=== PATIENT | female | born 1950 | race Caucasian/White ===

== ENCOUNTER 2024-09-20 10:55 | Outpatient (OUT) | payer OTHER, SELFPAY ==
--- OUTSIDE RECORDS SUMMARY | 2024-09-05 18:48 | XMS_ITS | Encounter Summary ---
Author Organization [facility] Address [address] [place] [address] Care Team Providers Care N[employer] Weaver Name Role Phone Salas Massey MD Primary Care Provider [phone] Reason for Referral * Sleep (Routine) - Authorized Specialty Diagnoses / Procedures Referred By Mariely cortes Referred To Contact Sleep Disorder Diagnoses Hypersomnia Procedures Polysomnography [id number] Marcy Olivo MD [address] [place] [address] [facility] [address] [place] [address] Referral ID Status Reason Start Date Expiration Date V isits Requested Visits Authorized [id number] Authorized 07/04/2024 07/04/2025 1 1 Reason for Visit * Sleep (Routine) - Authorized Specialty Diagnoses / Procedures Referred By Mariely cortes Referred To Contact Sleep Disorder Diagnoses Hypersomnia Procedures Polysomnography [id number] Marcy Olivo MD [address] [place] [address] [facility] [address] [place] [address] Referral ID Status Reason Start Date Expiration Date V isits Requested Visits Authorized [id number] Authorized 07/04/2024 07/04/2025 1 1 Encounter Details Date Type Department Care Team (Latest Contact Info) Description 09/05/2024 6:48 PM EDT - 09/05/2024 11:59 PM EDT Hospital Encounter [facility] [address] [place] [address] Hypersomnia Discharge Disposition: Home or Self Care () Social History Tobacco Use Types Packs/Day Years Used Date Smoking Tobacco: Never Smokeless Tobacco: Never Alcohol Use Standard Drinks/Week Comments Never 0 (1 standard drink = 0.6 oz pur e alcohol) [facility] Utilities Answer Date Recorded In the past 12 months has e [employer], gas, oil, or water reQwip threatened to shut off services in your home? No 06/30/2024 Humiliation, Afraid, Rape, and Kick questionnair e Answer Date Recorded Within the last year, have y ou been afraid of your partner or ex-partner? No 07/22/2024 Within the last year, have y ou been humiliated or emotionally abused in other ways by your partner or ex-partner? No Within the last year, have y ou been kicked, hit, slapped, or otherwise physically hurt by your partner or ex-partner? No 07/22/2024 Within the last year, have y ou been raped or forced to have any kind of sexual activity by your partner or ex-partner? No 07/22/2024 Overall Financial Resource Strain (CARDIA) Answe r Date Recorded How hard is it for you to pa y for the very basics like food, housing, medical care, and heating? Not hard at all 06/30/2024 PHQ-2 Answer Date Recorded Patient Health Questionnaire-2 Score 2 07/28/2024 Transportation Answer Date Recorded In the past 12 months, has l ack of transportation kept you from medical appointments or from getting medications? No 06/30/2024 Lack of Transportation (Non-Medical)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 06/30/2024 Housing Stability Vital Sign Answer Jovan e Recorded In the last 12 months, was t here a time when you were not able to pay the mortgage or rent on time? No 06/30/2024 Number of Times Moved in the Last Year Not on fi le 06/30/2024 At any time in the past 12 m [facility], were you homeless or living in a long term (including now)? No 06/30/2024 Hunger Vital Sign Answer Date Recorded Within the past 12 months, y ou worried that your food would run out before you got the money to buy more. Never true 07/01/19 25 Ran Out of Food in the Last Year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 06/30/2024 Sex and Gender Information Value Date Recorded Sex Assigned at Female 06/29/2024 6:39 PM EDT Gender Identity Female 06/29/2024 6:39 PM EDT Sexual Orientation Heterosexual or Straight 06/11 6:39 PM EDT documented as of this encounter Last Filed Vital Signs Vital Sign Reading Time Taken Comments Blood Pressure 134/67 09/05/2024 11:40 PM EDT Pulse 106 09/05/2024 11:40 PM EDT Temperature 36.8 C (98.3 F) 09/05/2024 11:40 PM EDT Respiratory Rate 18 09/05/2024 11:40 PM EDT Oxygen Saturation 100% 09/05/2024 11:40 PM EDT Inhaled Oxygen Concentration - - Weight 102 kg (225 lb) 09/05/2024 11:40 PM EDT Height 162.6 cm (5' 4 ) 09/05/2024 11:40 PM EDT Body Mass Index 38.62 09/05/2024 11:40 PM EDT documented in this encounter Medications at Time of Discharge Medication Sig Dispensed Refills Start Date End Date ALPRAZolam (Xanax) 0.25 mg tablet Take 0.25 mg by mouth if needed in the morning and at bedtime for anxiety. amitriptyline (Elavil) 50 mg tablet Take 50 mg by mouth at bedtime. ammonium lactate (Lac-Hydrin) 12 % lotionIndications:Lymphe shaq,Xerosis cutis Apply topically two times daily. 396 g 3 08/08/2024 bumetanide (Bumex) 1 mg tabletIndications:Stage 3b chronic kidney disease (CMS/HCC) Take 1 tablet (1 mg) by mouth two times daily. 60 tablet 11 07/28/2024 07/28/2025 cholecalciferol (Vitamin D-3) 125 MCG (5000 UT) capsule Take 1 capsule by mouth in the morning. cyanocobalamin, vitamin B-12, 1,000 mcg capsule Take 1 capsule by mouth in the morning. 06/24/2024 diphenhydramine HCl (UNISOM SLEEPMELTS ORAL) Take 1 tablet by mouth if needed each day. escitalopram (Lexapro) 10 mg tablet Take 10 mg by mouth in the morning. gabapentin (Neurontin) 300 mg capsule Take 300 mg by mouth twice a day. Patient takes 300 mg in the morning and 600 mg at night levothyroxine (Synthroid, Levoxyl) 100 mcg tablet Take 100 mcg by mouth before breakfast. 05/23/2024 metoprolol succinate XL (Toprol-XL) 25 mg 24 hr tabletIndications:Hypert rophic cardiomyopathy (CMS/HCC) Take 3 tablets (75 mg) by mouth in the morning. Do not crush or chew. 90 tablet 07/03/2024 potassium chloride CR (Klor-Con) 10 mEq ER tabletIndications:Stage 3b chronic kidney disease (CMS/HCC) Take 1 tablet (10 mEq) by mouth in the morning. 30 tablet 3 07/28/2024 rosuvastatin (Crestor) 10 mg tablet Take 10 mg by mouth at bedtime. spironolactone (Aldactone) 25 mg tabletIndications:Stage 3b chronic kidney disease (CMS/HCC) Take 1 tablet (25 mg) by mouth in the morning. 30 tablet 11 07/28/2024 07/28/2025 tamsulosin (Flomax) 0.4 mg 24 hr capsuleIndications:Urina ry retention Take 1 capsule (0.4 mg) by mouth in the morning. 10 capsule 08/25/2024 traMADol (Ultram) 50 mg tablet Take 50 mg by mouth. documented as of this encounter Progress Notes * MARGARETTEISIDRO Jaeger - 09/05/2024 7:30 PM EDT Functional Outcomes of Sleep Questionnaire Some people have difficulty performing everyday activities when they feel tired or sleepy. The purpose of this questionnaire is to find out if you generally have difficulty carrying out certain activities because you are too sleepy or tired. In this questionnaire, when the words ???sleepy?? or ???tired?? are used, it means the feeling that you can't keep your eyes open, your head is droopy, that you want to ???nod off?? , or that you feel the urge to take a nap. These words do not refer to the tired or fatigued feeling you may have after you have exercised. 1) Do you have difficulty concentrating on the things you do because you are sleepy or tired? 3. Yes, a little difficulty 2) Do you generally have difficulty remembering things, because you are sleepy or tired? 3. Yes, a little difficulty 3) Do you have difficulty operating a motor vehicle for SHORT distances (less than 100 miles) because you become sleepy or tired? 4. No difficulties 4) Do you have difficulty operating a motor vehicle for LONG distances (greater than 100 miles) because you become sleepy or tired? 4. No difficulties 5) Do you have difficulty visiting with your family or friends in THEIR homes because you are sleepy or tired? 4. No difficulties 6) Has your relationship with your family, friends, or work colleagues been affected because you are sleepy or tired? 4. No 7) Do you have difficulty watching a movie or videotape because you become sleepy or tired? 3. Yes, a little difficulty 8) Do you have difficulty being as active as you want to be in the EVENING because you are too sleepy or tired? 2. Yes, moderate difficulty 9) Do you have difficulty being as active as you want to be in the MORNING because you are too sleepy or tired? 3. Yes, a little difficulty 10) Has your desire for intimacy or sex been affected because you are sleepy or tired? 3. Yes, a little TOTAL 33 FOSQ-10?? 2004, Eva Ortiz FOSQ-10 - [place] [email or web address]-[email or web address] documented in this encounter Plan of Treatment Upcoming Encounters Date Type Department Care Team (Late st Contact Info) Description 10/06/2024 2:30 PM EDT Follow-Up [facility] [address] [place] [id number] Zuleima Duarte MD [address] [address] [place] 01/10/2025 1:00 PM EDT [facility] [place] [address] [place] [phone] Shoaib Pierson MD [address] [facility] [place] [address] Scheduled Orders Name Type Priority Associated Diagnoses Orde r Schedule Polysomnography 101[facility] Sleep Center Routine Hypersomnia Once for 1 Occurrences starting 09/05/2024 until 09/05/2024 documented as of this encounter Visit Diagnoses Diagnosis Hypersomnia Hypersomnia, unspecified documented in this encounter Care Teams [employer] Weaver Relationship Specialty Start Date End Date Salas Massey MD [address] [facility] [address] [place] [address] PCP - General Internal Medicine 06/29/24 documented as of this encounter
--- OUTSIDE RECORDS SUMMARY | 2024-09-09 13:00 | XMS_ITS | Encounter Summary ---
Author Organization [facility] Address [address] [facility] [place] [address] Care Team Providers Care Intermediate Project Manager Name Role Phone Salas Massey MD Primary Care Provider Jignesh Dinh MD Unavailable [phone] Eliot Rider DO Unavailable [phone] Salas Massey MD Unavailable [phone] Marixa Sampson RN Unavailable Unavailable Encounter Details Date Type Department Care Team (Late st Contact Info) Description 09/09/2024 1:00 PM EDT Telemedicine [facility] [address] [facility] [address] [place] [address] Jignesh Dinh MD [address] [facility] [address] [place] [id number] MCI (mild cognitive impairment) with memory loss (Primary Dx) Social History Tobacco Use Types Packs/Day Years Used Date Smoking Tobacco: Former Cigarettes Q uit: 04/13/1998 Smokeless Tobacco: Never Comments:10-19 cigarettes/da y Alcohol Use Standard Drinks/Week Comments Not Currently 0 (1 standard drink = 0.6 oz pure alcohol) caffeine intake: 1-2 cans of pop weekly B1300 Health Literacy Answer Date Recor ded How often do you need to hav e someone help you when you read instructions, pamphlets, or other written material from your doctor or pharmacy? Sometimes 08/13/2024 Humiliation, Afraid, Rape, and Kick questionnair e Answer Date Recorded Within the last year, have y ou been afraid of your partner or ex-partner? Patient declined 08/13/2024 Within the last year, have y ou been humiliated or emotionally abused in other ways by your partner or ex-partner? Patient declined 08/13/2024 Within the last year, have y ou been kicked, hit, slapped, or otherwise physically hurt by your partner or ex-partner? Patient declined 08/13/2024 Within the last year, have y ou been raped or forced to have any kind of sexual activity by your partner or ex-partner? Patient declined 08/13/2024 Social Connection and Isolat ion Panel [NHANES] Answer Date Recorded In a typical week, how many times do you talk on the phone with family, friends, or neighbors? More than three times a week 08/13/2024 How often do you get togethe r with friends or relatives? Patient declined 08/13/2024 How often do you attend chur or jainism services? Patient declined 08/13/2024 Do you belong to any clubs o r organizations such as scientologist groups, unions, fraternal or athletic groups, or school groups? Patient declined 08/13/2024 How often do you attend meet ings of the clubs or organizations you belong to? Patient declined 08/13/2024 Are you , , di vorced, , never , or living with a partner? Patient declined 08/13/2024 AUDIT-C Answer Date Recorded Q1: How often do you have a drink containing alcohol? Never 08/13/2024 Q2: How many drinks containi ng alcohol do you have on a typical day when you are drinking? Patient does not drink Q3: How often do you have si x or more drinks on one occasion? Never 08/13/2024 Overall Financial Resource Strain (CARDIA) Answe r Date Recorded How hard is it for you to pa y for the very basics like food, housing, medical care, and heating? Patient declined 08/13/2024 PHQ-2 Answer Date Recorded Patient Health Questionnaire-2 Score 0 04/28/2023 [facility] - Occupational Stress Questionnaire Answer Date Recorded Do you feel stress - tense, restless, nervous, or anxious, or unable to sleep at night because your mind is troubled all the time - these days? To some extent 08/13/2024 Exercise Vital Sign Answer Date Recorde d On average, how many days pe r week do you engage in moderate to strenuous exercise (like a brisk walk)? 0 days 08/13/2024 On average, how many minutes do you engage in exercise at this level? 0 min 08/13/2024 Hunger Vital Sign Answer Date Recorded Within the past 12 months, y ou worried that your food would run out before you got the money to buy more. Never true 08/14/19 25 Within the past 12 months, t he food you bought just didn't last and you didn't have money to get more. Never true 08/13/2024 PRAPARE - Transportation Answer Date Re corded In the past 12 months, has l ack of transportation kept you from medical appointments or from getting medications? No 06/2024 In the past 12 months, has l ack of transportation kept you from meetings, work, or from getting things needed for daily living? No 08/13/2024 Housing Stability Vital Sign Answer Jovan e Recorded In the last 12 months, was t here a time when you were not able to pay the mortgage or rent on time? No 08/13/2024 In the past 12 months, how m any times have you moved where you were living? 0 08/13/2024 At any time in the past [address] [facility], were you homeless or living in a care home (including now)? 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, [place]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 documented as of this encounter Plan of Treatment Upcoming Encounters Date Type Department Care Team (Late st Contact Info) Description 09/21/2024 2:30 PM EDT Office Visit [facility] [address] [place] [phone] 10/24/2024 2:30 PM EDT Clinical Support [facility] [address] [place] [phone] Dov Gonzalez RN documented as of this encounter Visit Diagnoses Diagnosis MCI (mild cognitive impairment) with memory loss- Primary Mild cognitive impairment, so stated documented in this encounter Care Teams Intermediate Project Manager Relationship Specialty Start Date End Date Salas Massey MD [address] [place] [address] PCP - General Internal Medicine 10/20/22 Salas Massey MD [address] [place] [address] PCP - Devoted 04/13/24 Jignesh Dinh MD [address] [place] [address] Referring Physician Neurology 04/15/23 Eliot Rider DO [address] [place] [address] [facility] [place] [address] Referring Physician Orthopaedic Surgery 07/07/23 Marixa Sampson, RN Registered Nurse Family Medicine 06/23/24 documented as of this encounter
--- OUTSIDE RECORDS SUMMARY | 2024-09-19 14:30 | XMS_ITS | Encounter Summary ---
Author Organization [facility] Address [address] [place] [address] Care Team Providers Care Decision Support Analyst Name Role Phone Salas Massey MD Primary Care Provider [phone] Jignesh Dinh MD Unavailable Eliot Rider DO Unavailable [phone] Salas Massey MD Unavailable [phone] Marixa Sampson RN Unavailable Unavailable Reason for Visit * Social Care Notification (Routine) - Closed Specialty Diagnoses / Procedures Referred By Contac t Referred To Contact Diabetes Education / Behavioral Health Diagnoses Type 2 diabetes mellitus without complication, without long-term current use of insulin Procedures [facility] OFFICE/OUTPATIENT NEW HIGH MDM 60 MINUTES Kehinde Silvestre, CHILLER OPERATOR [address] [place] [address] Phone: tel: fax: Dov Gonzalez RN Referral ID Status Reason Start Date Expiration Date V isits Requested Visits Authorized [id number] Closed Specialty Services Required 08/08/2024 02/04/2025 10 10 Encounter Details Date Type Department Care Team (Latest Contact Info) Description 09/19/2024 2:30 PM EDT Clinical Support [facility] [address] [place] [address] Dov Gonzalez RN Type 2 diabetes mellitus without complication, without long-term current use of insulin (Primary Dx); Essential hypertension (CMS/HCC) Social History Tobacco Use Types Packs/Day Years [...] 08/13/2024 How often do you attend chur ch or jainism services? Patient declined 08/13/2024 Do you belong to any clubs o r organizations such as orthodoxy groups, unions, fraternal or athletic groups, or [...] Answer Date Recorded Patient Health Questionnaire-2 Score 3 09/14/2024 [facility] - [...] any time in the past 12 m [facility], were you homeless or living in a fpc (including now)? 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 Follow up visit HPI Follow up with Oksana for her Type 2 Diabetes education. Past History Past Medical History: Diagnosis Date Colon polyps Depression (CMS/HCC) Diabetes mellitus (CMS/HCC) Generalized anxiety disorder (CMS/HCC) 10/15/2022 GERD (gastroesophageal reflux disease) Hypercholesterolemia (CMS/HCC) Hypertension (CMS/HCC) Hypothyroidism (CMS/HCC) Insomnia MCI (mild cognitive impairment) with memory loss 12/03/2022 Morbid obesity (CMS/HCC) 10/15/2022 Neuromuscular disorder (CMS/HCC) Nonalcoholic fatty liver disease 10/15/2022 Obsessive-compulsive disorder (CMS/HCC) 01/09/2023 Obstructive hypertrophic cardiomyopathy (CMS/HCC) 01/12/2023 Obstructive sleep apnea syndrome 10/15/2022 Polyneuropathy associated with underlying disease (CMS/HCC) 07/27/2023 Prediabetes Primary osteoarthritis involving multiple joints Stage 3a chronic kidney disease (HCC) (CMS/HCC) 10/15/2022 Type 2 diabetes mellitus with diabetic neuropathy (CMS/HCC) 04/28/2023 Vitamin D deficiency 10/15/2022 Past Surgical History: Procedure Laterality Date CARPAL TUNNEL RELEASE Bilateral 2022 right (06/02/2022) & left (05/19/2022)- ANDREW COLONOSCOPY W/ POLYPECTOMY 2014 ESOPHAGRAM ESOPHAGUS 01/28/2023 FOOT NEUROMA SURGERY Right FOOT SURGERY Left foot reconstruction bone stim HYSTERECTOMY MICHAEL with USO-DUB, benign JOINT REPLACEMENT TOTAL KNEE ARTHROPLASTY Left 10/29/2015 revision TOTAL KNEE ARTHROPLASTY 06/26/2014 Dr. Eliot Brown TOTAL SHOULDER ARTHROPLASTY Left 12/03/2022 reverse TSA-JAStefania Current Outpatient Medications Medication Sig Dispense Refill ALPRAZolam (Xanax) 0.25 MG tablet Take 1 tablet (0.25 mg) by mouth 2 (two) times a day as needed for anxiety 60 tablet 2 amitriptyline (Elavil) 50 MG tablet TAKE 1 TABLET BY MOUTH AT BEDTIME 90 tablet 3 ammonium lactate (Amlactin) 12 % cream Apply 1 application topically in the morning and 1 application in the evening and 1 application before bedtime. bumetanide (Bumex) 1 MG tablet Take by mouth in the morning and before bedtime. Cholecalciferol (Vitamin D) 125 MCG (5000 UT) capsule Take 1 capsule by mouth 1 (one) time each day Cyanocobalamin 1000 MCG capsule Take 1 capsule by mouth 1 (one) time each day at the same time 90 capsule 3 donepezil (Aricept) 5 MG tablet Take 1 tablet (5 mg) by mouth at bedtime 30 tablet 11 Doxylamine Succinate, Sleep, (UNISOM SLEEPTABS PO) Take 1 tablet by mouth as needed at bedtime. escitalopram (Lexapro) 10 MG tablet Take 1 tablet (10 mg) by mouth Daily 90 tablet 2 gabapentin (Neurontin) 300 MG capsule Take 1 capsule (300 mg) by mouth at bedtime for 7 days (Patient not taking: Reported on 09/16/2024) 7 capsule 0 levothyroxine (Synthroid, Levoxyl) 100 MCG tablet TAKE 1 TABLET BY MOUTH IN THE MORNING BEFORE MEAL(S) 90 tablet 2 metoprolol succinate XL (Toprol-XL) 25 MG 24 hr tablet Take 3 tablets (75 mg) by mouth in the morning. 90 tablet 11 potassium chloride CR (Klor-Con M10) 10 MEQ ER tablet Take 10 mEq by mouth in the morning and 10 mEq before bedtime. Do not crush or chew.. rosuvastatin (Crestor) 10 MG tablet Take 1 tablet (10 mg) by mouth at bedtime 90 tablet 3 spironolactone (Aldactone) 25 MG tablet Take 25 mg by mouth tamsulosin (Flomax) 0.4 MG 24 hr capsule Take 0.4 mg by mouth in the morning. traMADol (Ultram) 50 MG tablet Take 1-2 tablets (50-100 mg) by mouth every 6 (six) hours if needed for severe pain 120 tablet 0 No current facility-administered medications for this visit. Allergies Allergen Reactions Sulfa Antibiotics Other Behavior and Other Participant Outcomes My Oksana Becerril health goal/s I have chosen to focus on are: 1. Health Goal: Keep A1C below 7% In order to meet this goal, I will: Eat healthier How many times/minutes per day? Everyday 2. Health Goal: Lose weight In order to meet this goal, I will: Diet and exercise How many times/minutes per day? Diet everyday and exercise 15 min per day. Follow Up: Behavior and Other Participant Outcomes Behavioral Goal 1 Met: [] All the time- 5 [x] Most of the time- 4 [] Half the time- 3 [] Occasionally- 2 [] Never- 1 Behavioral Goal 2 Met: [] All the time- 5 [] Most of the time- 4 [x] Half the time- 3 [] Occasionally- 2 [] Never- 1 Reassessment Evaluation Diabetes Pathophysiology Define Diabetes. Comprehends chaudhary points Identify own type of diabetes. Comprehends chaudhary points List 3 options for treating diabetes. Comprehends chaudhary points Healthy Eating Describe effect of type, amount, and timing of food on blood glucose Demonstrates competency Describe how to keep a food journal. Demonstrates competency Being Active State effect of exercise on blood glucose levels. Demonstrates competency Taking Medications State effect of diabetes medications on diabetes. Comprehends chaudhary points Name what diabetes medications currently taking, action, and side effects. Comprehends chaudhary points Monitoring Glucose Identify recommended blood glucose targets and personal targets. Demonstrates competency State plan for monitoring blood glucose and record keeping at home. Demonstrates competency Acute Complications List symptoms of hyper and hypoglycemia and DKA. Demonstrates competency Describe sick day and severe weather or situation crisis guidelines. Demonstrates competency Describe how to treat low blood glucose and actions for lowering high blood glucose levels. Demonstrates competency Chronic Complications Define the natural course of diabetes and its effect on circulation. Comprehends chaudhary points Describe the relationship of blood glucose levels to residential complication of diabetes. Comprehends chaudhary points Diabetes Distress and Support Describe feeling about living with diabetes. Demonstrates competency Identify support needed and support network. Demonstrates competency Lifestyle and Healthy Coping Make a behavior change plan. Comprehends chaudhary points Identify a personal residential goal related to diabetes. Comprehends chaudhary points Health Promotion Define the ABCs of diabetes. Demonstrates competency Identity appropriate screenings, schedule, and personal plan for screenings. Demonstrates competency The following portions of the patient's history were reviewed and updated as appropriate: allergies, current medications, past family history, past medical history, past social history, past surgicalhistory and problem list. OBJECTIVE : Last Height and Weight with BMI: There is no height or weight on file to calculate BMI. Last 3 Weights: Wt Readings from Last 3 Encounters: 08/22/24 270 lb 06/29/24 293 lb 06/15/24 293 lb There were no vitals filed for this visit. Labs: GLU (no units) Date Value 05/02/2021 129 (H) 01/31/2021 126 (H) 08/13/2020 119 (H) GLUCOSE (no units) Date Value 07/07/2022 116 (H) 11/27/2021 113 (H) GLUCOSE POC GLUCOMETERS (mg/dL) Date Value 11/10/2022 105 [facility] GLUCOSE CAP (mg/dL) Date Value 12/03/2022 171 (H) Glucose (mg/dL) Date Value 08/08/2024 101 (H) 07/07/2024 110 (H) 07/07/2024 107 (H) 07/07/2024 123 (H) 07/06/2024 121 (H) 07/28/2023 92 04/20/2023 122 (H) 02/12/2023 103 HEMOGLOBIN A1C (no units) Date Value 11/27/2021 6.0 (H) Hemoglobin A1C Date Value 11/24/2023 5.8 07/28/2023 6.0 % of total Hgb (H) 02/12/2023 6.4 % of total Hgb (H) 10/15/2022 6.1 % of total Hgb (H) Hemoglobin A1c (%) Date Value 07/01/2024 6.8 (H) [facility] UREA NITROGEN:MCNC:PT:SER/PLAS:QN: (mg/dL) Date Value 12/04/2022 49 (H) UREA NITROGEN (no units) Date Value 07/15/2018 17 12/09/2017 22 10/19/2017 16 10/19/2017 16 UREA NITROGEN (BUN) (no units) Date Value 07/07/2022 30 (H) 11/27/2021 16 BUN (mg/dL) Date Value 08/08/2024 23 07/07/2024 46 (H) 07/03/2024 33 (H) 07/28/2023 22 04/20/2023 28 (H) 02/12/2023 41 (H) BLOOD UREA NITROGEN (no units) Date Value 05/02/2021 25 01/31/2021 17 08/13/2020 32 (H) Creatinine (mg/dL) Date Value 08/08/2024 1.41 (H) 07/07/2024 1.54 (H) 07/03/2024 1.43 (H) 07/28/2023 1.15 (H) 04/20/2023 1.16 (H) 02/12/2023 1.58 (H) [facility] CREATININE:MCNC:PT:SER/PLAS:QN: (mg/dL) Date Value 12/04/2022 2.2 (H) CREATININE (no units) Date Value 07/07/2022 1.16 (H) 11/27/2021 1.15 (H) 08/01/2019 1.02 06/16/2019 1.13 (H) CREA (no units) Date Value 05/02/2021 1.2 01/31/2021 1.2 08/13/2020 0.9 EGFR (mL/min/1.73) Date Value 06/15/2024 40 (L) 01/04/2024 44 (L) 12/15/2023 45 (L) EGFR (no units) Date Value 07/15/2018 53 (L) 12/09/2017 54 (L) 10/19/2017 61 10/19/2017 61 EGFR-NON AF SWAZI (no units) Date Value 05/02/2021 45 (L) 01/31/2021 44 (L) 08/13/2020 60 (L) eGFR (mL/min/1.73m*2) Date Value 08/08/2024 38.7 (L) 07/07/2024 34.8 (L) 07/03/2024 38.0 (L) ASSESSMENT AND PLAN : 1. Type 2 diabetes mellitus without complication, without long-term current use of insulin (Primary) - Ambulatory referral to Diabetic Education 2. Essential hypertension ([facility]) Summary of Plan: Oksana has been working trying to lose weight and keeping her A1C down below 7%. Oksana has not loss any weight but has also not gained any weight. Oksana's A1C has not been retested at this point but could be on the as this will be 3 months from her last A1C. Oksana was trying to get her A1C and weight to drop from following a carbohydrate restrictive diet. Oksana is trying to eat 40 grams of carbohydrates per her main three meals and a 15 gram snack. DSMS Support Plan: Oksana has been working trying to lose weight and keeping her A1C down below 7%. Oksana has not loss any weight but has also not gained any weight. Oksana's A1C has not been retested at this point but could be on the as this will be 3 months from her last A1C. Oksana was trying to get her A1C and weight to drop from following a carbohydrate restrictive diet. Oksana is trying to eat 40 grams of carbohydrates per her main three meals and a 15 gram snack. I want Oksana to follow up with me in four weeks and to be using the food journal with a rotating blood sugar log to better evaluate her postprandial elevation to help us adjust her dietary choices. Goal Evaluation [] Healthy eating - 50% = half the time [] Being active - 25% = occasionally [] Using medications safely - 75% = most of the time [] Monitoring - 50% = half the time [] Reducing risks: acute complications - 50% = half the time [] Reducing risks: chronic complications - 50% = half the time [x] Healthy coping - 100% = all the time New Goals [x] Healthy eating - 100% = all the time [x] Being active - 100% = all the time [x] Using medications safely - 100% = all the time [x] Monitoring - 100% = all the time [x] Reducing risks: acute complications - 100% = all the time [x] Reducing risks: chronic complications - 100% = all the time [] Healthy coping - 100% = all the time Completed [facility] records are available for all of [facility] team members. Any needs outside thescope of practice of the DSME team or service will be assigned to the provider and/or other qualified healthcare professional. Follow up plan: No follow-ups on file. documented in this encounter Plan of Treatment Upcoming Encounters Date Type Department Care Team (Late st Contact Info) Description 09/21/2024 2:30 PM EDT Office Visit [facility] [address] [place] [id number] 10/24/2024 2:30 PM EDT Clinical Support [facility] [address] [place] [id number] Dov Gonzalez RN documented as of this encounter Visit Diagnoses Diagnosis Type 2 diabetes mellitus without complication, without long-term current use of insulin- Primary Essential hypertension (CMS/[facility]) Unspecified essential hypertension documented in this encounter Care Teams Decision Support Analyst Relationship Specialty Start Date End Date Salas Massey MD [address] [place] [address] PCP - General Internal Medicine 10/20/22 Salas Massey MD [address] [place] [address] PCP - Devoted 04/13/24 Jignesh Dinh MD [address] [place] [address] Referring Physician Neurology 04/15/23 Eliot Rider DO [address] [place] [address] [place] [address] Referring Physician Orthopaedic Surgery 07/07/23 Marixa Sampson, ASHWIN Registered Nurse Family Medicine 06/23/24 documented as of this encounter
--- OUTSIDE RECORDS SUMMARY | 2024-09-20 10:30 | XMS_ITS | Encounter Summary ---
Author Organization [facility] Address [address] [place] [address] Care Team Providers Care Hand Tennis Ball Coverer Name Role Phone Salas Massey MD Primary Care Provider [phone] Encounter Details Date Type Department Care Team (Late st Contact Info) Description 09/20/2024 10:30 AM EDT Follow-Up [facility] at [facility] [address] [place] [phone] Norbert Levy MD [address] [place] [phone] Heart failure with preserved ejection fraction (CMS/HCC) (Primary Dx) Social History Tobacco Use Types Packs/Day Years Used Date Smoking Tobacco: Never Smokeless Tobacco: Never Alcohol Use Standard Drinks/Week Comments Never 0 (1 standard drink = 0.6 oz pur e alcohol) [facility] Utilities Answer Date Recorded In the past 12 months has [employer], gas, oil, or water [employer] threatened to shut off services in your [...] any time in the past 12 m [facility], were you homeless or living in a correction (including now)? No 06/30/2024 Hunger Vital Sign [...] Sign Reading Time Taken Comments Blood Pressure 138/76 09/20/2024 10:14 AM EDT Pulse 80 09/20/2024 10:14 AM EDT Temperature - - Respiratory Rate - - Oxygen Saturation 97% 09/20/2024 10:14 AM EDT Inhaled Oxygen Concentration - - Weight 129 kg (285 lb) 09/20/2024 10:14 AM EDT Height 162.6 cm (5' 4 ) 09/20/2024 10:14 AM EDT Body Mass Index 48.92 09/20/2024 10:14 AM EDT documented in this encounter Progress Notes * Norbert Levy MD - 09/20/2024 10:30 AM EDT Images from the original note were not included. [place] Electrophysiology Consult Note [place] Cardiology [facility] Reason for visit: ?HOCM/HFpEF HPI: Oksana Becerril is a 74 y.o. year old with past medical history of hypertension diabetes mellitus type 2 chronic lymphedema was recently admitted to [facility] with evidence of heart failure symptoms and a DVT study done at that time was negative for that however the patient is known to have chronic ly mphedema with venous insufficiency. Echocardiogram done during the time showed evidence of LV outflow tract obstruction with a gradient of 25 mm at rest and 40 mm with Valsalva patient with concern of hypertrophic cardiomyopathy at that time patient was recommended to have a cardiac MRI done and then to follow-up. this was done at [facility] and that showed evidence of preserved ejection fraction with mild concentric LVH with nonspecific nonischemic delayed myocardial enhancement seen the interventricular septum and mid myocardium of the lateral wall which involve less than 15% of the myocardium. The thickness was not suggestive of hypertrophic cardiomyopathy. Patient is here in office today for Cardiac MRI, LVOT obstruction and HOCM. Patient states she has been having SOB, leg swelling, heart racing, BERRIOS, bilateral pain in back of legs PMH: Past Medical History: Diagnosis Date Diabetes mellitus (CMS/HCC) GERD (gastroesophageal reflux disease) Hypertension Kidney disease PSH: History reviewed. No pertinent surgical history. SH: Social Determinants of Health Tobacco Use: Low Risk (09/20/2024) Patient History Smoking Tobacco Use: Never Smokeless Tobacco Use: Never Passive Exposure: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 Recent Concern: Tobacco Use - Medium Risk (07/21/2024) Received from [email or web address] Patient History Smoking Tobacco Use: Former Smokeless Tobacco Use: Never Passive Exposure: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 Alcohol Use: Not At Risk (08/13/2024) Received from [facility] [employer] AUDIT-C Frequency of Alcohol Consumption: Never Average Number of Drinks: Patient does not drink Frequency of Binge Drinking: Never Financial Resource Strain: Patient Declined (08/13/2024) Received from [email or web address] Overall Financial Resource Strain (CARDIA) Difficulty of Paying Living Expenses: Patient declined Food Insecurity: No Food Insecurity (08/13/2024) Received from [facility] Hunger Vital Sign Worried About Running Out of Food in the Last Year: Never true Ran Out of Food in the Last Year: Never true Transportation Needs: No Transportation Needs (08/13/2024) Received from [facility] PRAPARE - Transportation Lack of Transportation (Medical): No Lack of Transportation (Non-Medical): No Physical Activity: Inactive (08/13/2024) Received from [facility] Exercise Vital Sign Days of Exercise per Week: 0 days Minutes of Exercise per Session: 0 min Stress: Stress Concern Present (08/13/2024) Received from [facility] [place] [employer] - Occupational Stress Questionnaire Feeling of Stress : To some extent Social Connections: Unknown (08/13/2024) Received from [facility] Social Connection and Isolation Panel [NHANES] Frequency of Communication with Friends and Family: More than three times a week Frequency of Social Gatherings with Friends and Family: Patient declined Attends Mormonism Services: Patient declined Active Member of Clubs or Organizations: Patient declined Attends Club or Organization Meetings: Patient declined Marital Status: Patient declined Intimate Partner Violence: Patient Declined (08/13/2024) Received from [facility] Humiliation, Afraid, Rape, and Kick questionnaire Fear of Current or Ex-Partner: Patient declined Emotionally Abused: Patient declined Physically Abused: Patient declined Sexually Abused: Patient declined Depression: At risk (09/14/2024) Received from [facility] PHQ-2 Patient Health Questionnaire-2 Score: 3 Housing Stability: Low Risk (08/13/2024) Received from [facility] Housing Stability Vital Sign Unable to Pay for Housing in the Last Year: No Number of Times Moved in the Last Year: 0 Homeless in the Last Year: No Utilities: Not At Risk (06/30/2024) [facility] Utilities Threatened with loss of utilities: No Health Literacy: Inadequate Health Literacy (08/13/2024) Received from [facility] B1300 Health Literacy Frequency of need for help with medical instructions: Sometimes Allergies: Allergies Allergen Reactions Oxycodone-Acetaminophen Nausea Only Sulfa (Sulfonamide Antibiotics) Other Weight: 129kg Visit Vitals Ht 1.626 m (5' 4 ) Wt 129 kg (285 lb) BMI 48.92 kg/m?? Smoking Status Never BSA 2.41 m?? Meds: Current Outpatient Medications on File Prior to Visit Medication Sig Dispense Refill ALPRAZolam (Xanax) 0.25 mg tablet Take 0.25 mg by mouth if needed in the morning and at bedtime foranxiety. amitriptyline (Elavil) 50 mg tablet Take 50 mg by mouth at bedtime. ammonium lactate (Lac-Hydrin) 12 % lotion Apply topically two times daily. 396 g 3 bumetanide (Bumex) 1 mg tablet Take 1 tablet (1 mg) by mouth two times daily. 60 tablet 11 cholecalciferol (Vitamin D-3) 125 MCG (5000 UT) capsule Take 1 capsule by mouth in the morning. cyanocobalamin, vitamin B-12, 1,000 mcg capsule Take 1 capsule by mouth in the morning. diphenhydramine HCl (UNISOM SLEEPMELTS ORAL) Take 1 tablet by mouth if needed each day. escitalopram (Lexapro) 10 mg tablet Take 10 mg by mouth in the morning. gabapentin (Neurontin) 300 mg capsule Take 300 mg by mouth twice a day. Patient takes 300 mg in themorning and 600 mg at night levothyroxine (Synthroid, Levoxyl) 100 mcg tablet Take 100 mcg by mouth before breakfast. metoprolol succinate XL (Toprol-XL) 25 mg 24 hr tablet Take 3 tablets (75 mg) by mouth in the morning. Do not crush or chew. 90 tablet 0 potassium chloride CR (Klor-Con) 10 mEq ER tablet Take 1 tablet (10 mEq) by mouth in the morning. 30 tablet 3 rosuvastatin (Crestor) 10 mg tablet Take 10 mg by mouth at bedtime. spironolactone (Aldactone) 25 mg tablet Take 1 tablet (25 mg) by mouth in the morning. 30 tablet 11 tamsulosin (Flomax) 0.4 mg 24 hr capsule Take 1 capsule (0.4 mg) by mouth in the morning. 10 capsule 0 traMADol (Ultram) 50 mg tablet Take 50 mg by mouth. No current facility-administered medications on file prior to visit. ROS: Review of Systems Cardiovascular: Positive for claudication, dyspnea on exertion and leg swelling. Respiratory: Positive for shortness of breath. Physical Exam: Constitutional General Appearance: well-nourished, well-developed, appears stated age Level of Distress: comfortable Eyes MARTHA Neck Neck: supple, trachea midline Carotid Arteries: bilateral normal upstroke, no bruits Jugular Veins: normal jugular venous pressure Thyroid: not enlarged Lungs Respiratory Effort: unlabored Chest Exam: normal curvature, no thoracic deformity Auscultation: clear, no wheezing, no rales, no rhonchi Cardiovascular Chest wall: Rate And Rhythm: regular Heart Sounds: normal S1, normal s2, no gallop Systolic Murmur: not heard Diastolic Murmur: not heard Extremities: no cyanosis, no edema, no peripheral signs of emboli Peripheral Pulses Radial Pulse: normal Abdomen Inspection and Palpation: soft, non distended, no bruit, non tender Neurologic Gait: normal gait Labs: @LABRESULTS@ Lab Results Component Value Date HDL 33 07/01/2024 LDL CALC 59 07/01/2024 TRIGLYCERIDES 146 07/01/2024 TSH 0.94 07/01/2024 BNP 49 06/29/2024 EKG: Encounter Date: 06/29/24 ECG 12 lead Result Value Ventricular Rate 96 Atrial Rate 96 SC Interval 160 QRS DURATION 84 QT Interval 380 QTC CALCULATION(BAZETT) 480 P Centennial -7 R-Centennial 18 T Wave Centennial 20 Impression Normal sinus rhythm Normal ECG No previous ECGs available Confirmed by Chucky Clifton ([id number]) on 06/30/2024 7:14:44 AM Echo: 06/30/2024 Stress test: Coronary angiogram: @CATH@ Diagnostic Imaging: Cardiac MRI 08/17/2024 Narrative & Impression STUDY: Cardiac MRI without and with contrast CLINICAL HISTORY: Nonischemic cardiomyopathy. Left ventricular outflow tract obstruction. Cardiomyopathy. COMPARISON: None. TECHNIQUE: Multiplanar multisequence gated cardiac MRI was performed with steady state free precession imaging and pre- and postcontrast delayed myocardial enhancement views obtained prior to and following the uneventful ministration of intravenous gadolinium contrast. FINDINGS: Respiratory motion does significantly compromises assessment. There is no focal wall motion abnormality. Left ventricular ejection fraction is preserved. Left ventricular quantitative parameters as follows: Ejection Fraction 77% (normal: male = 49-79 %; female = 52-79 %). End Diastolic Diameter is 36 mm (normal: Male: 42 -62 mm, female 39-59 mm). Stroke Volume 61 mL. End Diastolic Volume 79 mL (normal: male = 95-215 ml; female = 78-1 67 ml). End Systolic Volume 18 mL (normal: male = 25-85 ml, female = 21-64 ml). Anteroseptal wall thickness: 1.2 cm. Posterolateral wall thickness: 1.1 cm. There is nonspecific delayed myocardial enhancement involving the mid myocardium of the mid lateral wall compatible with nonischemic fibrosis. Minimal delayed myocardial enhancement in the region of the right ventricular insertion point of the interventricular septum. Left atrium is normal size. Trivial mitral regurgitation. The right atrium is mildly dilated. There is mild tricuspid regurgitation. Normal right ventricular wall motion, function and size. Trace anterior pericardial effusion. No pleural effusions. Thoracic aorta and pulmonary artery appear to be normal caliber. Extracardiac Findings: None. IMPRESSION: Impression: 1. Preserved left ventricular systolic function. 2. Mild concentric left ventricular hypertrophy. 3. Nonspecific nonischemic delayed myocardial enhancement involving the interventricular septum and mid myocardium of the lateral wall. This involves less than 15% of the myocardium. Assessment and Plan: - HFpEF - Chronic lymphedema - Hypertension - Type II DM diabetes mellitus - LVH Patient is seen as a follow-up following her heart failure presentation and this currently appears to be euvolemic but still has evidence of edema which is probably from her underlying chronic lymphedema. Cardiac MRI is not revealing for hypertrophic cardiomyopathy and more suggestive of LVH and hypertensive heart disease. She will continue to maintain her diuretic for heart failure and I have advised her to follow vein clinic recommendations to use Arnoldo wrap bandages and keep the lower extremity elevated and to avoid high salt diet. She can adjust her diuretic regimen based on her weight and have subsequent follow-up with heart failure team. Norbert Levy MD Cardiac Electrophysiology [facility] documented in this encounter Plan of Treatment Upcoming Encounters Date Type Department Care Team (Late st Contact Info) Description 10/06/2024 2:30 PM EDT Follow-Up [facility] [address] [place] [phone] Zuleima Duarte MD [address] [place], [place] 01/10/2025 1:00 PM EDT Office [facility] [address] [facility] [place] [address] Shoaib Pierson MD [address] [facility] [place] [address] documented as of this encounter Visit Diagnoses Diagnosis Heart failure with preserved ejection fraction (CMS/HCC)- Primary documented in this encounter Care Teams Hand Tennis Ball Coverer Relationship Specialty Start Date End Date Salas Massey MD [address] [place] [address] PCP - General Internal Medicine 06/29/24 documented as of this encounter
--- OUTSIDE RECORDS SUMMARY | 2024-09-20 11:05 | XMS_ITS | Encounter Summary ---
Author Organization [facility] Address [address] [place] [address] Phone Care Team Providers Care Dielectric Press Operator Name Role Phone Unavailable Primary Care Provider Unavailabl e Encounter Details Date Type Department Care Team (Late st Contact Info) Description 12/02/2022 Scanned Document [facility] [address] [place] [address] Conversion, Onbase Social History Tobacco Use Types Packs/Day Years Used Date Smoking Tobacco: Never Assessed Comments Unknown Sex and Gender Information Value Date Recorded Sex Assigned at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 Legal Sex Female 4:36 AM EST Gender Identity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 Sexual Orientation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 documented as of this encounter Plan of Treatment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 documented as of this encounter Procedures Procedure Name Priority Date/Time Associated Diagnosis Comments ECHOCARDIOGRAM 12/02/2022 documented in this encounter Results * ECHOCARDIOGRAM (12/02/2022) Narrative 12/02/2022 Ordered by an unspecified provider. us Onbase Conversion CV ECHO PROCEDURES Final Resul t documented in this encounter Visit Diagnoses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documented in this encounter
--- OUTSIDE RECORDS SUMMARY | 2024-09-20 11:05 | XMS_ITS | Encounter Summary ---
Author Organization [facility] Address [address] [place] [address] Care Team Providers Care Farmworker Machine Name Role Phone Salas Massey MD Primary Care Provider Jignesh Dinh MD Unavailable Eliot Rider DO Unavailable [phone] Salas Masesy MD Unavailable [phone] Marixa Sampson RN Unavailable Unavailable Encounter Details Date Type Department Care Team (Late st Contact Info) Description 06/30/2024 Orders Only [facility] [address] [place] [address] Unallocated, Noms Provider, [address] [place] [address] Social History Tobacco Use Types Packs/Day Years Used Date Smoking Tobacco: Former Cigarettes Q uit: 04/13/1998 Smokeless Tobacco: Never Comments:10-19 cigarettes/da y Alcohol Use Standard Drinks/Week Comments Not Currently 0 (1 standard drink = 0.6 oz pure alcohol) caffeine intake: 1-2 cans of pop weekly AUDIT-C Answer Date Recorded Q1: How often do you have a drink containing alc ohol? Monthly or less 03/08/2023 Q2: How many drinks containi ng alcohol do you have on a typical day when you are drinking? 1 or 2 03/08/2023 Q3: How often do you have si x or more drinks on one occasion? 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, [place]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 documented as of this encounter Plan of Treatment Upcoming Encounters Date Type Department Care Team (Late st Contact Info) Description 09/21/2024 2:30 PM EDT Office Visit [facility] [address] [place] [address] 10/24/2024 2:30 PM EDT Clinical Support [facility] [address] [place] [address] Dov Gonzalez RN documented as of this encounter Procedures Procedure Name Priority Date/Time Associated Diagnosis Comments TROPONIN T, HIGH SENSITIVITY Routine 06/20/2024 11:20 AM EDT CBC WITH AUTO DIFFERENTIAL Routine 06/20/2024 11:20 AM EDT URINALYSIS, COMPLETE Routine 06/20/2024 11:20 AM EDT B-TYPE NATRIURETIC PEPTIDE Routine 06/20/2024 11:20 AM EDT MAGNESIUM Routine 06/20/2024 11:20 AM EDT CREATINE KINASE, TOTAL Routine 11:20 AM EDT COMPREHENSIVE METABOLIC PANEL Routine 06/20/2024 11:20 AM EDT XR CHEST 2 VIEWS Routine 06/20/2024 11:1 7 AM EDT RHYTHM ECG, REPORT Routine 06/20/2024 11 :15 AM EDT documented in this encounter Results * Urinalysis with microscopic (06/20/2024 11:20 AM EDT) Urine Urine specimen obtained by clean catch procedure / Unknown us Noms Provider Unallocated MD LAB URINE ORDERABLE S Final Result * CBC auto differential (06/20/2024 11:20 AM EDT) Blood Venous blood specimen / Unknown us Noms Provider Unallocated MD LAB BLOOD ORDERABLE S Final Result * Comprehensive metabolic panel (06/20/2024 11:20 AM EDT) Blood Venous blood specimen / Unknown us Noms Provider Unallocated MD LAB BLOOD ORDERABLE S Final Result * B-type natriuretic peptide (06/20/2024 11:20 AM EDT) Blood Venous blood specimen / Unknown us Noms Provider Unallocated MD LAB BLOOD ORDERABLE S Final Result * CK (06/20/2024 11:20 AM EDT) Blood Venous blood specimen / Unknown us Noms Provider Unallocated MD LAB BLOOD ORDERABLE S Final Result * TROPONIN T, HIGH SENSITIVITY (06/20/2024 11:20 AM EDT) us Noms Provider Unallocated MD LAB BLOOD ORDERABLE S Final Result * Magnesium (06/20/2024 11:20 AM EDT) Blood Venous blood specimen / Unknown us Noms Provider Unallocated MD LAB BLOOD ORDERABLE S Final Result * XR chest 2 views (06/20/2024 11:17 AM EDT) Anatomical Region Laterality Modality Chest Radiographic Nancy ging us Noms Provider Unallocated MD IMG XR PROCEDURES F inal Result * ECG 3 Lead (06/20/2024 11:15 AM EDT) us Noms Provider Unallocated MD IN CLINIC/BEDSIDE O RDERABLES Final Result documented in this encounter Visit Diagnoses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documented in this encounter Care Teams Farmworker Machine Relationship Specialty Start Date End Date Salas Massey MD [address] [place] [address] PCP - General Internal Medicine 10/20/22 Salas Massey MD [address] [place] [address] PCP - Devoted 04/13/24 Jignesh Dinh MD [address] [place] [address] Referring Physician Neurology 04/15/23 Eliot Rider DO [address] [place] [address] Referring Physician Orthopaedic Surgery 07/07/23 Marixa Sampson, RN Registered Nurse Family Medicine 06/23/24 documented as of this encounter
--- OUTSIDE RECORDS SUMMARY | 2024-09-20 11:05 | XMS_ITS | Clinical Summary ---
Author Organization [facility] Address [address] [place] [address] Care Team Providers Care Solar Sales Consultant Name Role Phone Andrey Ortiz Primary Care Provider [phone] Allergies Active Allergy Reactions Criticality Noted Date Comments Sulfa (Sulfonamide Antibiotics) 05/15 lip swelling Medications ZYBAN 150MG TABLET SA 0 06/06/2002 Active Social History Tobacco Use Types Packs/Day Years Used Date Smoking Tobacco: Never Assessed Comments No Sex and Gender Information Value Date Recorded Sex Assigned at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 Legal Sex Female 9:11 AM EST Gender Identity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 Sexual Orientation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 Last Filed Vital Signs Vital Sign Reading Time Taken Comments Blood Pressure 118/82 06/06/2002 10:00 AM EST Pulse 84 06/06/2002 10:00 AM EST Temperature - - Respiratory Rate - - Oxygen Saturation - - Inhaled Oxygen Concentration - - Weight 85 kg (187 lb 8 oz) 06/06/2002 10:[address] Height 160 cm (5' 3 ) 06/06/2002 10:00 AM EST Body Mass Index 33.21 06/06/2002 10:00 AM EST Plan of Treatment Health Maintenance Due Date Last Done Comments Anxiety Screening 1968 Depression Screening 1966 Hepatitis C Screening 1966 DTaP,Tdap,Td Vaccine (1 - Tdap) 1967 Pneumococcal Vaccine: 50+ (1 of 1 - PCV) 1998 Shingrix Vaccine (1 of 2) 1998 Diabetes Screening 06/06/2005 06/06/2002, 03/20/2000 Bone Density Screening 2013 RSV Vaccine (1 - 1-dose 75+ series) 2023 Covid-19 Vaccine ( season) 2023 Advance Directive Discussion 04/13/2024 Influenza Vaccine (Season Ended) 2024 Procedures Procedure Name Priority Date/Time Associated Diagnosis Comments BASIC METABOLIC PANEL 06/06/2002 9:37 AM EST from Last 3 Months or Most Recently Relevant to Health Maintenance Results * BASIC METABOLIC PNL (06/06/2002 9:37 AM EST) Glucose 92 65 - 110 mg/dL [facility] BUN 23 8 - 25 mg/dL [facility] Creatinine 0.9 0.7 - 1.4 mg/dL [facility] Sodium 140 132 - 148 mmol/L [facility] Potassium 4.4 3.5 - 5.0 mmol/L [facility] Chloride 104 98 - 110 mmol/L [facility] CO2 25 24 - 32 mmol/L [facility] Anion Gap 11 0 - 15 mmol/L [facility] Calcium 10.3 8.5 - 10.5 mg/dL [facility] 06/06/2002 9:37 AM EST Jaylen Graham LABORATORY Final Result [facility] [address] [place] [address] from Last 3 Months or Most Recently Relevant to Health [place] [address] [facility] MEDICARE MEDICARE Care Teams Solar Sales Consultant Relationship Specialty Start Date End Date Andrey Ortiz [address] [place] [address] STACY ALMARAZ [phone] PCP - General 06/06/02
--- OUTSIDE RECORDS SUMMARY | 2024-09-20 11:05 | XMS_ITS | Clinical Summary ---
Author Organization [facility] Address [address] [place] [id number] Phone Care Team Providers Care Continuous Process Coffee Roaster Name Role Phone Unavailable Primary Care Provider Unavailabl e Social History Tobacco Use Types Packs/Day Years Used Date Smoking Tobacco: Never Assessed Comments Unknown Sex and Gender Information Value Date Recorded Sex Assigned at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 Legal Sex Female 4:36 AM EST Gender Identity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 Sexual Orientation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 Plan of Treatment Health Maintenance Due Date Last Done Comments Bone Density Scan 1948 Lipid Panel 1948 Yearly Adult Physical 1950 Hepatitis C Screening 1966 DTaP/Tdap/Td Vaccines (1 - Tdap) 1970 Pneumococcal Vaccine (1 of 1 - PCV) 1998 Zoster Vaccines (1 of 2) 1998 RSV High Risk: (Elderly (60+ ) or Population) (1 - 1-dose 75+ series) 2023 COVID-19 Vaccine ( - 2023-2 5 season) 2023 Influenza Vaccine (Season Ended) 2024 HIB Vaccines Aged Out No longer eligi ble based on patient's age to complete this topic HPV Vaccines Aged Out No longer eligi ble based on patient's age to complete this topic Hepatitis A Vaccines Aged Out No long er eligible based on patient's age to complete this topic Hepatitis B Vaccines Aged Out No long er eligible based on patient's age to complete this topic IPV Vaccines Aged Out No longer eligi ble based on patient's age to complete this topic Meningococcal Vaccine Aged Out No rex mala eligible based on patient's age to complete this topic Rotavirus Vaccines Aged Out No longer eligible based on patient's age to complete this topic
--- OUTSIDE RECORDS SUMMARY | 2024-09-20 11:05 | XMS_ITS | Clinical Summary ---
Author Organization [facility] Address [address] [place] [address] Care Team Providers Care [employer] Officer Name Role Phone Yessenia Garcia MD Primary Care Provider [phone] Allergies Active Allergy Reactions Criticality Noted Date Comments Oxycodone-Acetaminophen Nausea Only 09/20/2024 Sulfa (Sulfonamide Antibiotics) Other 06/11 Medications Medication Sig Dispensed Refills Start Date End Date Status ALPRAZolam (Xanax) 0.25 mg tablet Take 0.25 mg by mouth if needed in the morning and at bedtime for anxiety. Active amitriptyline (Elavil) 50 mg tablet Take 50 mg by mouth at bedtime. Active cholecalciferol (Vitamin D-3) 125 MCG (5000 UT) capsule Take 1 capsule by mouth in the morning. Active cyanocobalamin, vitamin B-12, 1,000 mcg capsule Take 1 capsule by mouth in the morning. 06/24/2024 Active gabapentin (Neurontin) 300 mg capsule Take 300 mg by mouth twice a day. Patient takes 300 mg in the morning and 600 mg at night Active levothyroxine (Synthroid, Levoxyl) 100 mcg tablet Take 100 mcg by mouth before breakfast. 05/23/2024 Active rosuvastatin (Crestor) 10 mg tablet Take 10 mg by mouth at bedtime. Active metoprolol succinate XL (Toprol-XL) 25 mg 24 hr tabletIndications:Hyp ertrophic cardiomyopathy (CMS/HCC) Take 3 tablets (75 mg) by mouth in the morning. Do not crush or chew. 90 tablet 07/03/2024 Active traMADol (Ultram) 50 mg tablet Take 50 mg by mouth. Active diphenhydramine HCl (UNISOM SLEEPMELTS ORAL) Take 1 tablet by mouth if needed each day. Active escitalopram (Lexapro) 10 mg tablet Take 10 mg by mouth in the morning. Active bumetanide (Bumex) 1 mg tabletIndications:Sta ge 3b chronic kidney disease (CMS/HCC) Take 1 tablet (1 mg) by mouth two times daily. 60 tablet 11 07/28/2024 07/28/2025 Active potassium chloride CR (Klor-Con) 10 mEq ER tabletIndications:Sta ge 3b chronic kidney disease (CMS/HCC) Take 1 tablet (10 mEq) by mouth in the morning. 30 tablet 3 07/28/2024 Active spironolactone (Aldactone) 25 mg tabletIndications:Sta ge 3b chronic kidney disease (CMS/HCC) Take 1 tablet (25 mg) by mouth in the morning. 30 tablet 11 07/28/2024 07/28/2025 Active ammonium lactate (Lac-Hydrin) 12 % lotionIndications:Lym phedema,Xerosis cutis Apply topically two times daily. 396 g 3 08/08/2024 Active tamsulosin (Flomax) 0.4 mg 24 hr capsuleIndications:Ur inary retention Take 1 capsule (0.4 mg) by mouth in the morning. 10 capsule 08/25/2024 Active donepezil (Aricept) 5 mg tablet 5 mg at bedtime. 09/09/2024 10/09/2024 Active Active Problems Problem Noted Date Diagnosed Date Anxiety 09/20/2024 Cellulitis 09/20/2024 Impaired glucose tolerance 09/20/2024 Neuropathy 09/20/2024 Overview (09/20/2024): both feet Osteoarthritis 09/20/2024 Overview (09/20/2024): left knee Lymphedema 07/23/2024 Left ventricular outflow tract obstruction 07/23 Hypokalemia 07/23/2024 Shortness of breath 07/23/2024 Nocturnal hypoxia 07/02/2024 Assessment & Plan (07/06/2024 1:09 PM EDT): Patient had hypoxia below 88% at night and recommended 2 L nasal cannula on discharge Assessment & Plan (07/05/2024 11:34 AM EDT): Patient had hypoxia below 88% at night and recommended 2 L nasal cannula on discharge Assessment & Plan (07/05/2024 11:32 AM EDT): Patient had nocturnal oxygen trend that was not done properly and needed to be repeated Assessment & Plan (07/02/2024 11:52 AM EDT): Will do nocturnal home oxygenation trend Stasis dermatitis of both legs 06/30/2024 Assessment & Plan (07/06/2024 1:09 PM EDT): Patient known to have chronic lymphedema bilateral lower extremities Chronic venous insufficiency with VLU-prior to arrival Continue local wound care Patient will benefit from venous reflux studies that can be done outpatient Assessment & Plan (07/05/2024 11:34 AM EDT): Patient known to have chronic lymphedema bilateral lower extremities Chronic venous insufficiency with VLU-prior to arrival Continue local wound care Patient will benefit from venous reflux studies that can be done outpatient Assessment & Plan (07/05/2024 11:32 AM EDT): Patient known to have chronic lymphedema bilateral lower extremities Chronic venous insufficiency with VLU-prior to arrival Continue local wound care Patient will benefit from venous reflux studies that can be done outpatient Assessment & Plan (07/02/2024 11:51 AM EDT): Patient known to have chronic lymphedema bilateral lower extremities Chronic venous insufficiency with VLU-prior to arrival Continue local wound care Patient will benefit from venous reflux studies that can be done outpatient Assessment & Plan (06/30/2024 1:19 AM EDT): Skin care vascular surgery following treatment for lymphedema Pain and swelling of right lower leg 06/30/2024 Assessment & Plan (07/06/2024 1:09 PM EDT): Swelling appears more on the right side with tenderness of the calf empirically started on IV heparin obtain venous Doppler with Assessment & Plan (07/05/2024 11:34 AM EDT): Swelling appears more on the right side with tenderness of the calf empirically started on IV heparin obtain venous Doppler with Assessment & Plan (07/05/2024 11:32 AM EDT): Swelling appears more on the right side with tenderness of the calf empirically started on IV heparin obtain venous Doppler with Assessment & Plan (07/02/2024 11:51 AM EDT): Swelling appears more on the right side with tenderness of the calf empirically started on IV heparin obtain venous Doppler with Assessment & Plan (06/30/2024 1:19 AM EDT): Swelling appears more on the right side with tenderness of the calf empirically started on IV heparin obtain venous Doppler with Primary hypertension 06/30/2024 Assessment & Plan (07/06/2024 1:09 PM EDT): As above discussed with patient about compliance with CPAP with history of obstructive sleep apnea and obesity with risk of right-sided/pulmonary hypertension Assessment & Plan (07/05/2024 11:34 AM EDT): As above discussed with patient about compliance with CPAP with history of obstructive sleep apnea and obesity with risk of right-sided/pulmonary hypertension Assessment & Plan (07/05/2024 11:32 AM EDT): As above discussed with patient about compliance with CPAP with history of obstructive sleep apnea and obesity with risk of right-sided/pulmonary hypertension Assessment & Plan (07/02/2024 11:51 AM EDT): As above discussed with patient about compliance with CPAP with history of obstructive sleep apnea and obesity with risk of right-sided/pulmonary hypertension Assessment & Plan (06/30/2024 1:19 AM EDT): As above discussed with patient about compliance with CPAP with history of obstructive sleep apnea and obesity with risk of right-sided/pulmonary hypertension Stage 3b chronic kidney disease 06/30/2024 Assessment & Plan (07/06/2024 1:09 PM EDT): Monitor serial electrolytes creatinine would recommend follow-up with nephrology Niecy added with current creatinine clearance and discussion with pharmacy to augment renal protective effect Assessment & Plan (07/05/2024 11:34 AM EDT): Monitor serial electrolytes creatinine would recommend follow-up with nephrology Niecy added with current creatinine clearance and discussion with pharmacy to augment renal protective effect Assessment & Plan (07/05/2024 11:32 AM EDT): Monitor serial electrolytes creatinine would recommend follow-up with nephrology Niecy added with current creatinine clearance and discussion with pharmacy to augment renal protective effect Assessment & Plan (07/02/2024 11:51 AM EDT): Monitor serial electrolytes creatinine would recommend follow-up with nephrology Niecy added with current creatinine clearance and discussion with pharmacy to augment renal protective effect Assessment & Plan (06/30/2024 1:19 AM EDT): Monitor serial electrolytes creatinine would recommend follow-up with nephrology Niecy added with current creatinine clearance and discussion with pharmacy to augment renal protective effect Type 2 diabetes mellitus wit h kidney complication, with long-term current use of insulin 06/30/2024 Assessment & Plan (07/06/2024 1:09 PM EDT): Insulin blood sugar check diet check A1c Assessment & Plan (07/05/2024 11:34 AM EDT): Insulin blood sugar check diet check A1c Assessment & Plan (07/05/2024 11:32 AM EDT): Insulin blood sugar check diet check A1c Assessment & Plan (07/02/2024 11:51 AM EDT): Insulin blood sugar check diet check A1c Assessment & Plan (06/30/2024 1:19 AM EDT): Insulin blood sugar check diet check A1c Morbid obesity 06/30/2024 Assessment & Plan (07/06/2024 1:09 PM EDT): Counseling and recommendation to follow-up with bariatric clinic Assessment & Plan (07/05/2024 11:34 AM EDT): Counseling and recommendation to follow-up with bariatric clinic Assessment & Plan (07/05/2024 11:32 AM EDT): Counseling and recommendation to follow-up with bariatric clinic Assessment & Plan (07/02/2024 11:51 AM EDT): Counseling and recommendation to follow-up with bariatric clinic Assessment & Plan (06/30/2024 1:19 AM EDT): Counseling and recommendation to follow-up with bariatric clinic Hypertensive heart disease 06/30/2024 Assessment & Plan (07/06/2024 1:09 PM EDT): As above Assessment & Plan (07/05/2024 11:34 AM EDT): As above Assessment & Plan (07/05/2024 11:32 AM EDT): As above Assessment & Plan (07/02/2024 11:51 AM EDT): As above Assessment & Plan (06/30/2024 1:19 AM EDT): As above Hypertrophic cardiomyopathy 06/30/2024 Assessment & Plan (07/06/2024 1:09 PM EDT): increased left ventricular outflow tract obstruction; 2.5 cm/s max gradient 25 mmHg at rest and 3.2 cm/s max gradient 40 mmHg with Valsalva maneuver, based on transthoracic echocardiogram 06/30/2024. Patient started on Toprol 50 mg daily Assessment & Plan (07/05/2024 11:34 AM EDT): increased left ventricular outflow tract obstruction; 2.5 cm/s max gradient 25 mmHg at rest and 3.2 cm/s max gradient 40 mmHg with Valsalva maneuver, based on transthoracic echocardiogram 06/30/2024. Patient started on Toprol 50 mg daily Assessment & Plan (07/05/2024 11:32 AM EDT): increased left ventricular outflow tract obstruction; 2.5 cm/s max gradient 25 mmHg at rest and 3.2 cm/s max gradient 40 mmHg with Valsalva maneuver, based on transthoracic echocardiogram 06/30/2024. Patient started on Toprol 50 mg daily Assessment & Plan (07/02/2024 11:51 AM EDT): increased left ventricular outflow tract obstruction; 2.5 cm/s max gradient 25 mmHg at rest and 3.2 cm/s max gradient 40 mmHg with Valsalva maneuver, based on transthoracic echocardiogram 06/30/2024. Patient started on Toprol 50 mg daily Assessment & Plan (06/30/2024 1:19 AM EDT): Will add carvedilol diuretics avoid CAROLINE inhibitor or ARB obtain echocardiogram to evaluate left ventricular function and ejection fraction and rule out hypertrophic obstructive cardiomyopathy and to optimize medication for hypertensive heart disease her BNP today is within normal range discussed with patient about compliance with diet Core CHF measures in place dietary consult and social security assessor consult Primary osteoarthritis involving multiple joints 11/04/2023 Polyneuropathy associated with underlying diseas e 07/27/2023 Type 2 diabetes mellitus wit h diabetic neuropathy, without long-term current use of insulin 04/28/2023 Obsessive-compulsive disorder 01/09/2023 Acute kidney injury 12/17/2022 Incoordination 12/17/2022 Leukocytosis 12/17/2022 MCI (mild cognitive impairment) with memory loss 12/03/2022 Obstructive sleep apnea syndrome 10/15/2022 Nonalcoholic fatty liver disease 10/15/2022 Primary insomnia 10/15/2022 Pure hypercholesterolemia 10/15/2022 Vitamin D deficiency 10/15/2022 Abnormal gait 03/05/2022 Lymphedema of both lower extremities 03/05/2022 Muscle weakness 03/05/2022 Senile asthenia 03/05/2022 Malaise 03/04/2022 Repeated falls 03/04/2022 Constipation 11/01/2015 Sleep disorder 11/01/2015 Localized edema 07/18/2014 Acquired hypothyroidism 06/29/2014 Gastroesophageal reflux disease without esophagi tis 06/29/2014 Generalized anxiety disorder 06/29/2014 Hyperlipidemia 06/29/2014 Resolved Problems Problem Noted Date Diagnosed Date Resolved Date CHF (congestive heart failure) 06/30/2024 06/30/2024 Encounters Date Type Department Care Team Description 09/20/2024 10:30 AM EDT Follow-Up [facility] [address] [address] Norbert Levy MD Heart failure with preserved ejection fraction (CMS/HCC) (Primary Dx) 09/05/2024 6:48 PM EDT - 09/05/2024 11:59 PM EDT Hospital Encounter [facility] [address] [place] [address] Hypersomnia Discharge Disposition: Home or Self Care () 08/25/2024 Orders Only [facility] [address] [place] [address] Slim Angela MD Urinary retention (Primary Dx) 08/17/2024 10:39 AM EDT - 08/17/2024 11:59 PM EDT Hospital Encounter [facility] MR Imaging [address] [facility] [address] [place] [address] Left ventricular outflow tract obstruction Discharge Disposition: Home or Self Care () 08/12/2024 [facility] [address] [place] [address] Zuleima Duarte MD 08/08/2024 2:15 PM EDT Follow-Up [facility] Vascular and Endovascular Surgery [address] [place] [address] Beckie Poe PA-C Lymphedema; Xerosis cutis 08/08/2024 10:30 AM EDT - 08/08/2024 11:59 PM EDT Hospital Encounter [facility] US IMAGING [address] [place] [address] Stage 3b chronic kidney disease (CMS/HCC) Discharge Disposition: Home or Self Care () 08/08/2024 10:29 AM EDT Hospital Encounter [facility] Vascular Ultrasound Imaging [address] [place] [address] Lymphedema; Localized swelling, mass and lump, head Discharge Disposition: Home or Self Care () 08/04/2024 Orders Only [facility] [address] [place] [phone] Mariann-Ale Day RRT Chronic obstructive pulmonary disease, unspecified COPD type ([facility]) 08/02/2024 Telephone [facility] Vascular and Endovascular Surgery [address] [facility] [place] [address] Valentín Hsu MA 08/02/2024 Orders Only [facility] Vascular and Endovascular Surgery [address] [facility] [place] [address] Valentín Hsu MA Lymphedema; Localized swelling, mass and lump, head 07/28/2024 2:00 PM EDT Consult [facility] [address] [place] [phone] Zuleima Duarte MD Stage 3b chronic kidney disease (CMS/HCC) (Primary Dx); BERRIOS (dyspnea on exertion); Essential hypertension; Obstructive sleep apnea syndrome; Lymphedema 07/22/2024 11:40 AM EDT Follow-Up [facility] Cardiology Clinic [address] [facility] [place] [address] Chantale Doran CNP Left ventricular outflow tract obstruction (Primary Dx); Nocturnal hypoxia; Primary hypertension; Hypertrophic cardiomyopathy ([facility]/HCC); Stage 3b chronic kidney disease (CMS/HCC); Morbid obesity ([facility]/HCC); Type 2 diabetes mellitus with diabetic microalbuminuria, with long-term current use of insulin (CMS/HCC); Lymphedema; Obstructive sleep apnea syndrome; Hypokalemia; Shortness of breath 07/11/2024 Telephone [facility] Cardiology Clinic [address] [place] [phone] Sharon Tanner MA 06/29/2024 9:31 PM EDT - 07/07/2024 2:19 PM EDT Hospital Encounter [facility] [address] [place] [phone] López Calderon MD Horani, Omar, MD Saad, Hani, MD Hypertrophic cardiomyopathy (CMS/HCC) (Primary Dx); Acute congestive heart failure, unspecified heart failure type (CMS/HCC); Lymphedema; Pain and swelling of right lower leg; Nocturnal hypoxia; Hypersomnia; Acute on chronic heart failure with preserved ejection fraction (HFpEF) (CMS/HCC); Congestive heart failure, unspecified HF chronicity, unspecified heart failure type (CMS/HCC); Localized edema Discharge Disposition: Home-Health Care [facility] (06) 06/29/2024 Travel from Last 3 Months Family History Relation Name Status Comments Father Mother Social History Tobacco Use Types Packs/Day Years Used Date Smoking Tobacco: Never Smokeless Tobacco: Never Tobacco Cessation:Counseling Given: Not Answered Alcohol Use Standard Drinks/Week Comments Never 0 (1 standard drink = 0.6 oz pur e alcohol) [facility] Utilities Answer Date Recorded In the past 12 months has [facility] [employer], oil, or water [employer] threatened to shut off services in your [...] any time in the past 12 m [facility], were you homeless or living in [...] Heterosexual or Straight 06/11 6:39 PM EDT Last Filed Vital Signs Vital Sign Reading Time Taken Comments Blood Pressure 138/76 09/20/2024 10:14 AM EDT Pulse 80 09/20/2024 10:14 AM EDT Temperature 36.8 C (98.3 F) 09/05/2024 11:40 PM EDT Respiratory Rate 18 09/05/2024 11:40 PM EDT Oxygen Saturation 97% 09/20/2024 10:14 AM EDT Inhaled Oxygen Concentration - - Weight 129 kg (285 lb) 09/20/2024 10:14 AM EDT Height 162.6 cm (5' 4 ) 09/20/2024 10:14 AM EDT Body Mass Index 48.92 09/20/2024 10:14 AM EDT Plan of Treatment Upcoming Encounters Date Type Department Care Team (Late st Contact Info) Description 10/06/2024 2:30 PM EDT Follow-Up [facility] [address] [place] [phone] Zuleima Duarte MD [address] [facility] [place] 01/10/2025 1:00 PM EDT Office Visit [facility] [address] [place] [address] Shoaib Pierson MD [address] [facility] [address] [facility] [place] [address] Health Maintenance Due Date Last Done Comments Medicare Annual Wellness (AWV) 1950 Diabetes: Retinopathy Screening 1958 Adult Tetanus 1970 Zoster Vaccines (2 of 2) 03/28/2019 01/31/2019, 05/2011 COVID-19 Vaccine ( season) 2023 03/19/2021, 08/11/2020, 07/14/2020 Diabetes: Hemoglobin A1C 10/01/2024 07/01/2024 Depression Screening 07/28/2025 07/28/2024 Fall Risk Screening 07/28/2025 07/28/2024 Pneumococcal Vaccine: 65+ Years Completed 03/01/2015, 12/28/2013 Influenza Vaccine Completed 05/19/2024, , 02/05/2021, Additional history exists HIB Vaccines Aged Out No longer eligi ble based on patient's age to complete this topic HPV Vaccines Aged Out No longer eligi ble based on patient's age to complete this topic IPV Vaccines Aged Out No longer eligi ble based on patient's age to complete this topic Meningococcal B Vaccine Aged Out No l onger eligible based on patient's age to complete this topic Meningococcal Vaccine Aged Out No rex mala eligible based on patient's age to complete this topic Rotavirus Vaccines Aged Out No longer eligible based on patient's age to complete this topic Procedures Procedure Name Priority Date/Time Associated Diagnosis Comments MRI CARDIAC MORPHOLOGY AND FUNCTION W AND WO IV CONTRAST Routine 08/17/2024 1:07 PM EDT Left ventricular outflow tract obstruction US RENAL COMPLETE Routine 08/08/2024 12: 18 PM EDT Stage 3b chronic kidney disease (CMS/HCC) PHOSPHORUS Routine 08/08/2024 12:17 PM EDT Stage 3b chronic kidney disease (CMS/HCC) PTH, INTACT Routine 08/08/2024 12:17 PM EDT Stage 3b chronic kidney disease (CMS/HCC) MAGNESIUM Routine 08/08/2024 12:17 PM EDT Stage 3b chronic kidney disease (CMS/HCC) SODIUM, URINE, RANDOM Routine 08/08/2024 12:17 PM EDT Stage 3b chronic kidney disease (CMS/HCC) CREATININE, URINE, RANDOM Routine 08/08/2024 12:17 PM EDT Stage 3b chronic kidney disease (CMS/HCC) PROTEIN, URINE, RANDOM Routine 08/08/2024 12:17 PM EDT Stage 3b chronic kidney disease (CMS/HCC) COMPREHENSIVE METABOLIC PANEL Routine 08/08/2024 12:17 PM EDT Stage 3b chronic kidney disease (CMS/HCC) [facility] LOWER EXTREMITY VENOUS INSUFFICIENCY BILATERAL (REFLUX) Routine 08/08/2024 11:04 AM EDT Lymphedema Localized swelling, mass and lump, head POCT GLUCOSE METER UNSOLICITED RESULTS Routine 07/07/2024 6:17 AM EDT LAVENDER TOP Routine 07/07/2024 4:21 AM EDT EXTRA TUBES Routine 07/07/2024 4:21 AM EDT BASIC METABOLIC PANEL Pending Discharge 07/07/2024 4:21 AM EDT POCT GLUCOSE METER UNSOLICITED RESULTS Routine 07/07/2024 12:02 AM EDT POCT GLUCOSE METER UNSOLICITED RESULTS Routine 07/06/2024 4:38 PM EDT POCT GLUCOSE METER UNSOLICITED RESULTS Routine 07/06/2024 11:52 AM EDT POCT GLUCOSE METER UNSOLICITED RESULTS Routine 07/06/2024 5:18 AM EDT POCT GLUCOSE METER UNSOLICITED RESULTS Routine 07/06/2024 12:09 AM EDT POCT GLUCOSE METER UNSOLICITED RESULTS Routine 07/05/2024 5:36 PM EDT POCT GLUCOSE METER UNSOLICITED RESULTS Routine 07/05/2024 11:55 AM EDT POCT GLUCOSE METER UNSOLICITED RESULTS Routine 07/05/2024 5:36 AM EDT POCT GLUCOSE METER UNSOLICITED RESULTS Routine 07/04/2024 11:37 PM EDT POCT GLUCOSE METER UNSOLICITED RESULTS Routine 07/04/2024 5:23 PM EDT VASC US LOWER EXTREMITY VENOUS DUPLEX BILATERAL Routine 07/04/2024 2:43 PM EDT Localized edema POCT GLUCOSE METER UNSOLICITED RESULTS Routine 07/04/2024 5:38 AM EDT POCT GLUCOSE METER UNSOLICITED RESULTS Routine 07/03/2024 11:54 PM EDT POCT GLUCOSE METER UNSOLICITED RESULTS Routine 07/03/2024 6:00 PM EDT POCT GLUCOSE METER UNSOLICITED RESULTS Routine 07/03/2024 12:25 PM EDT PULSE OXIMETRY, OVERNIGHT Routine 07/03/2024 11:26 AM EDT POCT GLUCOSE METER UNSOLICITED RESULTS Routine 07/03/2024 6:07 AM EDT LAVENDER TOP Routine 07/03/2024 5:34 AM EDT EXTRA TUBES Routine 07/03/2024 5:34 AM EDT BASIC METABOLIC PANEL Routine 07/03/2024 5:34 AM EDT POCT GLUCOSE METER UNSOLICITED RESULTS Routine 07/02/2024 11:38 PM EDT POCT GLUCOSE METER UNSOLICITED RESULTS Routine 07/02/2024 4:52 PM EDT POCT GLUCOSE METER UNSOLICITED RESULTS Routine 07/02/2024 11:19 AM EDT PULSE OXIMETRY, OVERNIGHT Routine 07/02/2024 9:01 AM EDT POCT GLUCOSE METER UNSOLICITED RESULTS Routine 07/02/2024 5:38 AM EDT LAVENDER TOP Routine 07/02/2024 5:00 AM EDT EXTRA TUBES Routine 07/02/2024 5:00 AM EDT BASIC METABOLIC PANEL Routine 07/02/2024 4:30 AM EDT POCT GLUCOSE METER UNSOLICITED RESULTS Routine 07/01/2024 11:19 PM EDT POCT GLUCOSE METER UNSOLICITED RESULTS Routine 07/01/2024 4:25 PM EDT POCT GLUCOSE METER UNSOLICITED RESULTS Routine 07/01/2024 11:26 AM EDT POCT GLUCOSE METER UNSOLICITED RESULTS Routine 07/01/2024 5:50 AM EDT LIPID PANEL Routine 07/01/2024 4:46 AM EDT HEMOGLOBIN A1C Routine 07/01/2024 4:46 AM EDT TSH3 REFLEX TO FT4 Routine 07/01/2024 4: 46 AM EDT VITAMIN B12 Routine 07/01/2024 4:46 AM EDT COMPREHENSIVE METABOLIC PANEL Routine 07/01/2024 4:46 AM EDT POCT GLUCOSE METER UNSOLICITED RESULTS Routine 06/30/2024 11:24 PM EDT POCT GLUCOSE METER UNSOLICITED RESULTS Routine 06/30/2024 4:45 PM EDT POCT GLUCOSE METER UNSOLICITED RESULTS Routine 06/30/2024 12:33 PM EDT COMPLETE ECHO (TTE) W/ IMAGING AGENT Routine 06/30/2024 11:34 AM EDT VASC US LOWER EXTREMITY VENOUS DUPLEX BILATERAL Routine 06/30/2024 11:01 AM EDT ANTI-FACTOR XA STAT 06/30/2024 8:51 AM EDT POCT GLUCOSE METER UNSOLICITED RESULTS Routine 06/30/2024 8:06 AM EDT ECG 12-LEAD STAT 06/30/2024 6:40 AM EDT URINALYSIS WITH REFLEX CULTURE STAT 06/30/2024 4:43 AM EDT LACTIC ACID WITH 4 HOUR REFLEX STAT 06/29/2024 10:19 PM EDT XR CHEST 1 VIEW STAT 06/29/2024 10:18 PM EDT CBC WITH AUTO DIFFERENTIAL STAT 06/29/2024 10:14 PM EDT B-TYPE NATRIURETIC PEPTIDE STAT 06/29/2024 10:14 PM EDT APTT STAT 06/29/2024 10:14 PM EDT PROTIME-INR STAT 06/29/2024 10:14 PM EDT HIGH SENSITIVITY TROPONIN I STAT 06/29/2024 10:14 PM EDT COMPREHENSIVE METABOLIC PANEL STAT 06/29/2024 10:14 PM EDT CBC AND DIFFERENTIAL STAT 06/29/2024 10:14 PM EDT from Last 3 Months Results * MR cardiac morphology and function w and wo IV contrast (08/17/2024 1:07 PM EDT) Anatomical Region Laterality Modality Body, Heart Magnetic Resonan ce 08/22/2024 7:33 AM EDT Impressions 08/22/2024 8:30 AM EDT Impression: 1. Preserved left ventricular systolic function. 2. Mild concentric left ventricular hypertrophy. 3. Nonspecific nonischemic delayed myocardial enhancement involving the interventricular septum and mid myocardium of the lateral wall. This involves less than 15% of the myocardium. Electronically signed: Darian Ramirez. Tori 08/22/2024 8:30 AM EDT STUDY: Cardiac MRI without and with contrast [...] to be normal caliber. Extracardiac Findings: None. Procedure Note Darian Ramirez MD - 08/22/2024 STUDY: Cardiac MRI without and with contrast CLINICAL HISTORY: Nonischemic cardiomyopathy. Left ventricular outflowtract obstruction. Cardiomyopathy. COMPARISON: None. TECHNIQUE: Multiplanar multisequence gated cardiac MRI was performed withsteady state free precession imaging and pre- and postcontrast delayedmyocardial enhancement views obtained prior to and following the uneventfulministration of intravenous gadolinium contrast. FINDINGS: Respiratory motion does significantly compromises assessment. There is nofocal wall motion abnormality. Left ventricular ejection fraction ispreserved. Left ventricular quantitative parameters as follows: Ejection Fraction 77% (normal: male = 49-79 %; female = 52-79 %). End Diastolic Diameter is 36 mm (normal: Male: 42 -62 mm, female 39-59mm). Stroke Volume 61 mL. End Diastolic Volume 79 mL (normal: male = 95-215 ml; female = 78-1 67ml). End Systolic Volume 18 mL (normal: male = 25-85 ml, female = 21-64 ml). Anteroseptal wall thickness: 1.2 cm. Posterolateral wall thickness: 1.1 cm. There is nonspecific delayed myocardial enhancement involving the midmyocardium of the mid lateral wall compatible with nonischemic fibrosis. Minimaldelayed myocardial enhancement in the region of the right ventricular insertionpoint of the interventricular septum. Left atrium is normal size. Trivial mitral regurgitation. The right atrium is mildly dilated. There is mild tricuspidregurgitation. Normal right ventricular wall motion, function and size. Trace anterior pericardial effusion. No pleural effusions. Thoracic aorta and pulmonary artery appear to be normal caliber. Extracardiac Findings: None. IMPRESSION: Impression: 1. Preserved left ventricular systolic function. 2. Mild concentric left ventricular hypertrophy. 3. Nonspecific nonischemic delayed myocardial enhancement involving the interventricular septum and mid myocardium of the lateral wall. Thisinvolves less than 15% of the myocardium. Electronically signed: Darian Ramirez. Chantale Doran CNP IM MRI PROCEDURES * US renal complete (08/08/2024 12:18 PM EDT) Anatomical Region Laterality Modality Kidney Ultrasound 08/08/2024 3:30 PM EDT Impressions 08/08/2024 3:31 PM EDT * Unremarkable appearance of the kidneys. * Post void bladder residual measuring 502 mL. Electronically signed: Maninder Rodriguez MD. Narrative 08/08/2024 3:31 PM EDT RENAL ULTRASOUND HISTORY: Stage III chronic kidney disease COMPARISON: None FINDINGS: The right kidney measures 9.6 cm and left kidney 10.2 cm in length. Cortical thickness and corticomedullary differentiation are preserved. No renal stones, masses, or collecting system dilatation. No definitive bladder mass identified. Post void bladder residual measures 502 mL. Procedure Note Maninder Rodriguez MD - 08/08/2024 RENAL ULTRASOUND HISTORY: Stage III chronic kidney disease COMPARISON: None FINDINGS: The right kidney measures 9.6 cm and left kidney 10.2 cm in length.Cortical thickness and corticomedullary differentiation are preserved. No renalstones, masses, or collecting system dilatation. No definitive bladder mass identified. Post void bladder residual [id number] mL. IMPRESSION: *Unremarkable appearance of the kidneys. *Post void bladder residual measuring 502 mL. Electronically signed: Maninder Rodriguez MD. Zuleima Duarte MD [facility] US PROCEDURES * Sodium, urine, random (08/08/2024 12:17 PM EDT) Sodium, Ur 124 mmol/L 08/08/2024 2:10 PM EDT [facility] ([facility]) Urine Urine specimen obtained by clean catch procedure / Unknown Non-blood Collection / Unknown 08/08/2024 12:17 PM EDT 08/08/2024 12:30 PM EDT Zuleima Duarte MD LAB URINE ORDERABLES [facility]) [address] [place] [address] * Protein, urine, random (08/08/2024 12:17 PM EDT) Protein, Ur 5.1 mg/dL 08/08/2024 2:10 PM EDT [facility] ([facility]) Comment:There are no establi shed reference values for random urine specimens. Urine Urine specimen obtained by clean catch procedure / Unknown Non-blood Collection / Unknown 08/08/2024 12:17 PM EDT 08/08/2024 12:30 PM EDT Zuleima Duarte MD LAB URINE ORDERABLES Performing Organization Address City/[facility]/ZIP Co de Phone Number [facility]) [address] [place] [address] * Creatinine, urine, random (08/08/2024 12:17 PM EDT) Creatinine, Ur 56.0 26 - 299 mg/dL 08/08/2024 2:10 PM EDT [facility] ([facility]) Urine Urine specimen obtained by clean catch procedure / Unknown Non-blood Collection / Unknown 08/08/2024 12:17 PM EDT 08/08/2024 12:30 PM EDT Zuleima Duarte MD LAB URINE ORDERABLES [facility] ([facility]) [address] [place] [address] * Phosphorus (08/08/2024 12:17 PM EDT) Phosphorus 4.4 2.5 - 5.0 mg/dL 08/08/2024 1:02 PM EDT [facility] ([facility]) Blood Venous blood specimen / Unknown Venipuncture / Unknown 08/08/2024 12:17 PM EDT 08/08/2024 12:35 PM EDT Zuleima Duarte MD LAB BLOOD ORDERABLES [facility]) [address] [place] [address] * (ABNORMAL) PTH, intact (08/08/2024 12:17 PM EDT) PTH 118(H) 12 - 88 pg/mL 08/08/2024 1:18 PM EDT [facility] ([facility]) Blood Venous blood specimen / Unknown Venipuncture / Unknown 08/08/2024 12:17 PM EDT 08/08/2024 12:35 PM EDT Zuleima Duarte MD LAB BLOOD ORDERABLES Performing Organization Address City/[facility] Co de Phone Number [facility]) [address] [place] [address] * Magnesium (08/08/2024 12:17 PM EDT) Magnesium 2.2 1.9 - 2.7 mg/dL 08/08/2024 1:02 PM EDT [facility] ([facility]) Blood Venous blood specimen / Unknown Venipuncture / Unknown 08/08/2024 12:17 PM EDT 08/08/2024 12:35 PM EDT Zuleima Duarte MD LAB BLOOD ORDERABLES Performing Organization Address City/[facility]/ZIP Co de Phone Number [facility]) [address] [place], [place] [id number] * (ABNORMAL) Comprehensive metabolic panel (08/08/2024 12:17 PM EDT) Only the most recent of3 resultswithin the time period is included. Sodium 138 136 - 145 mmol/L 08/08/2024 1:02 PM EDT [facility] ([facility]) Potassium 4.6 3.5 - 5.1 mmol/L 08/08/2024 1:02 PM EDT [facility] ([facility]) Chloride 98 98 - 107 mmol/L 08/08/2024 1:02 PM EDT [facility] ([facility]) CO2 36(H) 21 - 31 mmol/L 08/08/2024 1:02 PM T [facility] ([facility]) Anion Gap 9 7 - 20 mmol/L 08/08/2024 1:02 PM T [facility] ([facility]) BUN 23 7 - 25 mg/dL 08/08/2024 1:02 PM T [facility] ([facility]) Creatinine 1.41(H) 0.60 - 1.20 mg/dL 08/08/2024 1:02 PM T [facility] ([facility]) BUN/Creatinine Ratio 16.3 /11/2024 1:02 PM [facility] ([facility]) Glucose 101(H) 70 - 100 mg/dL 08/08/2024 1:02 PM [facility] ([facility]) Calcium 9.0 8.6 - 10.3 mg/dL 08/08/2024 1:02 PM T [facility] ([facility]) AST 14 13 - 39 U/L 08/08/2024 1:02 PM T [facility] ([facility]) ALT (SGPT) 12 7 - 52 U/L 08/08/2024 1:02 PM T [facility] ([facility]) Alkaline Phosphatase 83 34 - 104 U/L 08/08/2024 1:02 PM [facility] ([facility]) Total Protein 7.3 6.0 - 8.3 g/dL 08/08/2024 1:02 PM [facility] ([facility]) Albumin 4.1 3.5 - 5.7 g/dL 08/08/2024 1:02 PM T [facility] ([facility]) Total Bilirubin 0.3 0.3 - 1.0 mg/dL 08/08/2024 1:02 PM EDT [facility] ([facility]) eGFR 38.7(L) >60.0 mL/min/1. 73m*2 08/08/2024 1:02 PM EDT [facility] ([facility]) Comment:The [facility] s estimated glomerular filtration rate (eGFR) will no longer include consideration of race in its calculation. The [employer] s eGFR Task Force developed new recommendations for the estimation of the glomerular filtration rate in the [place] They recommend immediate implementation of the new equation refit without the race variable in all laboratories because the calculation does not include race. In addition to not including race in the calculation and reporting, it included diversity in its development, and has acceptable performance characteristics and potential consequences that do not disproportionately affect any one group of individuals. Blood Venous blood specimen / Unknown Venipuncture / Unknown 08/08/2024 12:17 PM EDT 08/08/2024 12:35 PM EDT Zuleima Duarte MD LAB BLOOD ORDERABLES [facility] ([facility]) [address] [place] [address] * Vascular US lower extremity venous insufficiency bilateral Reflux) (08/08/2024 11:04 AM EDT) Anatomical Region Laterality Modality Lower Extremities Ultrasound 08/08/2024 11:0 1 AM EDT Impressions 08/08/2024 5:09 PM EDT Right: No evidence of acute deep or superficial vein thrombosis of the right lower extremity. No significant deep or superficial vein reflux noted. Left: No evidence of acute deep or superficial vein thrombosis of the left lower extremity. No significant deep or superficial vein reflux noted. Right: No evidence of acute deep or superficial vein thrombosis of the right lower extremity. No significant deep or superficial vein reflux noted. Left: No evidence of acute deep or superficial vein thrombosis of the left lower extremity. No significant deep or superficial vein reflux noted. Conclusions: No evidence of acute deep or superficial vein thrombosis of the bilateral lower extremities. No significant deep or superficial vein reflux noted bilaterally. Narrative 08/08/2024 5:09 PM EDT Procedure: The bi-lateral lower extremities were evaluated for venous reflux using ultrasound, Doppler and reflux evaluation using both compression and release as well as Valsalva with the duration of reflux measured. The diameters of the superficial veins as well as tool and die repairer veins were evaluated. Veins evaluated include the greater saphenous vein from the groin to the knee (through distal calf if ulcers present) and in the short saphenous vein from the popliteal fossa down to the proximal calf (through distal calf if ulcers present). Perforators were evaluated by diameter measurement and presence of reflux. Procedure: The bi-lateral lower extremities were evaluated for venous reflux using ultrasound, Doppler and reflux evaluation using both compression and release as well as Valsalva with the duration of reflux measured. The diameters of the superficial veins as well as tool and die repairer veins were evaluated. Veins evaluated include the greater saphenous vein from the groin to the knee (through distal calf if ulcers present) and in the short saphenous vein from the popliteal fossa down to the proximal calf (through distal calf if ulcers present). Perforators were evaluated by diameter measurement and presence of reflux. Procedure Note Kita Durand MD - 08/08/2024 Procedure: The bi-lateral lower extremities were evaluated for venousreflux using ultrasound, Doppler and reflux evaluation using bothcompression and release as well as Valsalva with the duration of refluxmeasured. The diameters of the superficial veins as well as perforatorveins were evaluated. Veins evaluated include the greater saphenous veinfrom the groin to the knee (through distal calf if ulcers present) and inthe short saphenous vein from the popliteal fossa down to the proximalcalf (through distal calf if ulcers present). Perforators were evaluatedby diameter measurement and presence of reflux. Procedure: The bi-lateral lower extremities were evaluated for venousreflux using ultrasound, Doppler and reflux evaluation using bothcompression and release as well as Valsalva with the duration of refluxmeasured. The diameters of the superficial veins as well as perforatorveins were evaluated. Veins evaluated include the greater saphenous veinfrom the groin to the knee (through distal calf if ulcers present) and inthe short saphenous vein from the popliteal fossa down to the proximalcalf (through distal calf if ulcers present). Perforators were evaluatedby diameter measurement and presence of reflux. IMPRESSION: Right: No evidence of acute deep or superficial vein thrombosis of theright lower extremity. No significant deep or superficial vein refluxnoted. Left: No evidence of acute deep or superficial vein thrombosis of the leftlower extremity. No significant deep or superficial vein reflux noted. Right: No evidence of acute deep or superficial vein thrombosis of theright lower extremity. No significant deep or superficial vein refluxnoted. Left: No evidence of acute deep or superficial vein thrombosis of the leftlower extremity. No significant deep or superficial vein reflux noted. Conclusions: No evidence of acute deep or superficial vein thrombosis ofthe bilateral lower extremities. No significant deep or superficial vein reflux noted bilaterally. Beckie Poe PA-C IMG CV VASCULAR PRO CEDURES * (ABNORMAL) POCT glucose meter (07/07/2024 6:17 AM EDT) Only the most recent of28 resultswithin the time period is included. Glucose POC 110(H) 70 - 105 mg/dL 07/07/2024 6:28 AM EDT [facility] ([facility]) Comment:[id number] Blood Capillary blood specimen / Unknown 07/07/2024 6:17 AM EDT 07/07/2024 6:28 AM EDT Narrative [facility] ([facility]) - 07/07/2024 6:28 AM EDT Waived Testing in the ED is performed under the ED CLIA certificate #[id number]. Marcy Olivo MD LAB BLOOD ORDERABLES [facility] ([facility]) [address] [place] [address] * Lavender Top (07/07/2024 4:21 AM EDT) Only the most recent of3 resultswithin the time period is included. Extra Tube Hold for add-ons. 07/07/2024 6:01 AM EDT [facility] ([facility]) Comment:Auto resulted. Blood Venous blood specimen / Unknown 07/07/2024 4:21 AM EDT 07/07/2024 4:51 AM EDT Marcy Olivo MD LAB BLOOD ORDERABLES [facility] ([facility]) [address] [place] [address] * (ABNORMAL) Basic metabolic panel (07/07/2024 4:21 AM EDT) Only the most recent of3 resultswithin the time period is included. Sodium 138 136 - 145 mmol/L 07/07/2024 5:11 AM EDT [facility] ([facility]) Potassium 3.6 3.5 - 5.1 mmol/L 07/07/2024 5:11 AM EDT [facility] ([facility]) Chloride 97(L) 98 - 107 mmol/L 07/07/2024 5:11 AM EDT [facility] ([facility]) CO2 32(H) 21 - 31 mmol/L 07/07/2024 5:11 AM EDT [facility] ([facility]) BUN 46(H) 7 - 25 mg/dL 07/07/2024 5:11 AM EDT [facility] ([facility]) Creatinine 1.54(H) 0.60 - 1.20 mg/dL 07/07/2024 5:11 AM EDT [facility] ([facility]) Glucose 107(H) 70 - 100 mg/dL 07/07/2024 5:11 AM EDT [facility] ([facility]) Calcium 8.9 8.6 - 10.3 mg/dL 07/07/2024 5:11 AM EDT [facility] ([facility]) Anion Gap 13 7 - 20 mmol/L 07/07/2024 5:11 AM EDT [facility] ([facility]) eGFR 34.8(L) >60.0 mL/min/1. 73m*2 07/07/2024 5:11 AM EDT [facility] ([facility]) Comment:[facility] s estimated glomerular filtration rate (eGFR) will no longer include consideration of race in its calculation. The [employer] s eGFR Task Force developed new recommendations for the estimation of the glomerular filtration rate in the [place] They recommend immediate implementation of the new equation refit without the race variable in all laboratories because the calculation does not include race. In addition to not including race in the calculation and reporting, it included diversity in its development, and has acceptable performance characteristics and potential consequences that do not disproportionately affect any one group of individuals. BUN/Creatinine Ratio 29.9 06/12 5:11 AM EDT [facility] ([facility]) Blood Venous blood specimen / Unknown Arterial Line / Unknown 07/07/2024 4:21 AM EDT 07/07/2024 4:42 AM EDT Marcy Olivo MD LAB BLOOD ORDERABLES [facility] ([facility]) [address] [place] [address] * Vasc Us Lower Extremity Venous Duplex Bilateral (07/04/2024 2:43 PM EDT) Only the most recent of2 resultswithin the time period is included. Anatomical Region Laterality Modality Lower Extremities Ultrasound 07/04/2024 2:42 PM EDT Impressions 07/05/2024 7:35 AM EDT Notes: Indication: Localized Edema - R60.0 Right: Non visualization of calf veins due to bandage material. Remaining visualized deep and superficial veins of the right lower extremity appeared with no evidence of deep or superficial vein thrombosis. Left: Non visualization of calf veins due to bandage material. Remaining visualized deep and superficial veins of the left lower extremity appeared with no evidence of deep or superficial vein thrombosis. Notes: Indication: Localized Edema - R60.0 Right: Non visualization of calf veins due to bandage material. Remaining visualized deep and superficial veins of the right lower extremity appeared with no evidence of deep or superficial vein thrombosis. Left: Non visualization of calf veins due to bandage material. Remaining visualized deep and superficial veins of the left lower extremity appeared with no evidence of deep or superficial vein thrombosis. Conclusions: Non visualization of calf veins bilaterally. No acute deep or superficial vein thrombosis in bilateral lower extremities. Narrative 07/05/2024 7:35 AM EDT Procedure: Duplex spectral Doppler and real time ultrasound imaging with compression and augmentation was performed from inguinal ligament to ankle bilaterally. Procedure: Duplex spectral Doppler and real time ultrasound imaging with compression and augmentation was performed from inguinal ligament to ankle bilaterally. Procedure Note Kita Durand MD - 07/05/2024 Procedure: Duplex spectral Doppler and real time ultrasound imaging withcompression and augmentation was performed from inguinal ligament to anklebilaterally. Procedure: Duplex spectral Doppler and real time ultrasound imaging withcompression and augmentation was performed from inguinal ligament to anklebilaterally. IMPRESSION: Notes: Indication: Localized Edema - R60.0 Right: Non visualization of calf veins due to bandage material. Remainingvisualized deep and superficial veins of the right lower extremityappeared with no evidence of deep or superficial vein thrombosis. Left: Non visualization of calf veins due to bandage material. Remainingvisualized deep and superficial veins of the left lower extremity appearedwith no evidence of deep or superficial vein thrombosis. Notes: Indication: Localized Edema - R60.0 Right: Non visualization of calf veins due to bandage material. Remainingvisualized deep and superficial veins of the right lower extremityappeared with no evidence of deep or superficial vein thrombosis. Left: Non visualization of calf veins due to bandage material. Remainingvisualized deep and superficial veins of the left lower extremity appearedwith no evidence of deep or superficial vein thrombosis. Conclusions: Non visualization of calf veins bilaterally. No acute deep or superficial vein thrombosis in bilateral lowerextremities. Homer Topete PA-C IMG CV VASCULAR PROC EDURES * TSH3 Reflex to FT4 (07/01/2024 4:46 AM EDT) TSH 0.94 0.34 - 5.60 mIU/L 07/01/2024 6:09 AM EDT [facility] ([facility]) Blood Venous blood specimen / Unknown Arterial Line / Unknown 07/01/2024 4:46 AM EDT 07/01/2024 5:16 AM EDT Osvaldo Gant MD LAB BLOOD ORDERABLES [facility] ([facility]) [address] [place] [address] [phone] * (ABNORMAL) Hemoglobin A1c (07/01/2024 4:46 AM EDT) [facility] Hemoglobin A1C 6.8(H) 4.0 - 6.0 % 07/01/2024 8:29 AM EDT [facility] ([facility]) Estimated Average Glucose 148 mg/dL 07/01/2024 8:29 AM EDT [facility] ([facility]) Blood Venous blood specimen / Unknown Arterial Line / Unknown 07/01/2024 4:46 AM EDT 07/01/2024 5:18 AM EDT Osvaldo Gant MD LAB BLOOD ORDERABLES [facility] ([facility]) [address] [place] [address] * (ABNORMAL) Vitamin B12 (07/01/2024 4:46 AM EDT) [facility] Vitamin B-12 1,095(H) 180 - 914 pg/mL 07/01/2024 6:09 AM EDT [facility] ([facility]) Comment: REFERENCE RANGES: 180-914 pg/mL Normal 145-179 pg/mL Indeterminate <145 pg/mL Deficient Blood Venous blood specimen / Unknown Arterial Line / Unknown 07/01/2024 4:46 AM EDT 07/01/2024 5:16 AM EDT Osvaldo Gant MD LAB BLOOD ORDERABLES [facility] ([facility]) [address] [place] [address] * Lipid panel (07/01/2024 4:46 AM EDT) [facility] Triglycerides 146 <150 mg/dL 07/01/2024 5:45 AM EDT [facility] ([facility]) Comment: TRIGLYCERIDE REFERENCE RANGE: 20 YEARS AND OLDER CARDIOVASCULAR RISK LESS THAN 150 mg/dL LOW RISK 150 TO 199 mg/dL BORDERLINE RISK 200 mg/dL AND GREATER HIGH RISK Cholesterol 121 120 - 200 mg/dL 07/01/2024 5:45 AM EDT [facility] ([facility]) LDL Calculated 59 0 - 160 mg/dL 07/01/2024 5:45 AM EDT [facility] [facility]) HDL 33 23 - 92 mg/dL 07/01/2024 5:45 AM EDT [facility] ([facility]) Non HDL Cholesterol 88 07/01/2024 5:45 AM EDT [facility] ([facility]) Total VLDL-C 29 0 - 40 mg/dL 07/01/2024 5:45 AM EDT [facility] ([facility]) Cholesterol/HDL Ratio 3.7 mg/dL 07/01/2024 5:45 AM EDT [facility] ([facility]) Blood Venous blood specimen / Unknown Arterial Line / Unknown 07/01/2024 4:46 AM EDT 07/01/2024 5:16 AM EDT Osvaldo Gant MD LAB BLOOD ORDERABLES Performing Organization Address City/State/[facility] Co de Phone Number [facility] ([facility]) [address] [place] [address] * COMPLETE ECHO (TTE) W/ IMAGING AGENT (06/30/2024 11:34 AM EDT) Anatomical Region Laterality Modality Other 06/30/2024 10:5 9 AM EDT Narrative 06/30/2024 4:48 PM EDT [facility] Heart Station [address] [place] [address] [phone] (fax) Echocardiogram-[facility] Name: OKSANA ALVAREZ Study Date: 06/30/2024 10:59 AM B/P: 151 mmHg/77 mmHg HR: 84 bpm Date of : 1950 Location: [facility] Height: 61 in. Age: 74 year(s) Patient Room: 3129 Weight: 288 lb. Gender: Female Patient Status: InPt BSA: 2.21 m2 Indication: Edema, Acute congestive heart failure, Left ventricular hypertrophy Examination: Echocardiogram (Complete), Lumason Contrast Image Quality: Poor sound transmission in apical views Patient Consent: Procedure explained to patient Exam Details Contrast: I.V. dose of Lumason Conclusions Left Ventricle: Left ventricular outflow tract obstruction; 2.5 cm/s max gradient 25 mmHg at rest and 3.2 cm/s max gradient 40 mmHg with Valsalva maneuver. The left ventricle is small in size. Global left ventricular systolic function is hyperdynamic. The EF is 75 % visually. Interventricular septal thickness is increased in the proximal portion. No regional wall motion abnormality. Grade 1, mild diastolic dysfunction (abnormal relaxation). Doppler flows are increased in the midcavity of the LV, suggestive of hyperdynamic function.. Right Ventricle: The right ventricle is enlarged. Right ventricular systolic function appears normal. Doppler studies suggest mildly elevated right sided pressures. Left Atrium: The left atrium is normal in size. Right Atrium: The right atrium is mildly enlarged. Tricuspid Valve: Mild tricuspid regurgitation. Overall Conclusions: No significant valvular abnormalities Due to suboptimal imaging Lumason contrast was administered for opacification and better delineation of endocardial borders. Lumason utilized for boarder delineation and left ventricular measurements. Measurements Left Ventricle Label Value Normal Value LVOTd 1.9 cm (18cm - 20cm) LVOT VTI 39 cm (18cm - 22cm) LVOT PGmax 13 mmHg LVEF visual 75 % LVDd, 2D 3.72 cm (3.9cm - 5.3cm) LVDs, 2D 2.22 cm (2.1cm - 4cm) IVSd, 2D 1.06 cm (0.6cm - 1.1cm) LVPWd, 2D 0.7 cm (0.6cm - 0.9cm) LV Mass, 2D ASE 94.69 g LV Mass Index, 2D ASE 42.8 g/m?? (44g/m?? - 88.4g/m??) RWT, MM 0.38 (0 - 0.42) LVSVI, 2D 19 ml/m2 LVOT PGmean 7 mmHg LVSV_LVOT 111 ml Right Ventricle Label Value Normal Value RVDd, 2D 4.97 cm (1.9cm - 3.8cm) TAPSE 2.3 cm Left Atrium Label Value Normal Value LA Volume, BP 51 ml (22ml - 52ml) LADs, 2D 3.3 cm (2.7cm - 3.8cm) LAESV index, BP 23.1 ml/m?? Right Atrium Label Value Normal Value RA Area 19.3 cm?? Aortic Valve Label Value Normal Value AV DVI 0.98 AV VTI 32.5 cm Mitral Valve Label Value Normal Value MV E Vmax 1.02 m/s MV A Vmax 1.38 m/s MV E/A 0.74 MV E/E' lateral 14.2 MV E' lateral 0.07 m/s Tricuspid Valve Label Value Normal Value RA Pressure 3 mmHg RVSP 37 mmHg TR Vmax 2.91 m/s Aorta Label Value Normal Value AoRoot, 2D 2.8 cm (1.4cm - 3.8cm) Valvular Assessment LVOT 0.7 - 1.1 m/sec Aortic Valve 1.0 - 1.7 m/sec Mitral Valve 0.6 - 1.3 m/sec Tricuspid Valve 0.3 - 0.7 m/sec Pulmonic Valve 0.6 - 0.9 m/sec Regurgitation No Trivial Mild Trivial Stenosis No No No No Max Velocity 1.77 m/sec 1.80 m/s 1.02 m/sec 0.70 m/s 1.23 m/s Max Gradient 13.00 mmHg 2.00 mmHg 6.00 mmHg Mean Gradient 7.00 mmHg Valve Area 2.8 cm?? Findings Left Ventricle: Left ventricular outflow tract obstruction; 2.5 cm/s max gradient 25 mmHg at rest and 3.2 cm/s max gradient 40 mmHg with Valsalva maneuver. The left ventricle is small in size. Global left ventricular systolic function is hyperdynamic. The EF is 75 % visually. Interventricular septal thickness is increased in the proximal portion. No regional wall motion abnormality. Grade 1, mild diastolic dysfunction (abnormal relaxation). Doppler flows are increased in the midcavity of the LV, suggestive of hyperdynamic function.. Right Ventricle: The right ventricle is enlarged. Right ventricular systolic function appears normal. Doppler studies suggest mildly elevated right sided pressures. Left Atrium: The left atrium is normal in size. Right Atrium: The right atrium is mildly enlarged. Mitral Valve: The mitral valve is normal in mobility and thickness. Trivial mitral regurgitation. No mitral valve stenosis. Aortic Valve: The aortic valve is normal. No aortic valve regurgitation. No aortic valve stenosis. The aortic valve is trileaflet. Tricuspid Valve: Normal tricuspid valve. Mild tricuspid regurgitation. No tricuspid valve stenosis. Pulmonic Valve: Normal pulmonary valve. Trivial pulmonary regurgitation. No pulmonic valve stenosis. Aorta: The aortic root is normal in size. Ascending aorta not visualized. The aortic arch measures 2.90 cm. Aortic arch is normal in size. Great Vessels: IVC: The IVC is not well visualized. Pericardium: No pericardial effusion. Procedure Staff Reading Group: [facility] Referring Physician: YESSENIA GARCIA Journeyman Pipefitter: Judy Fitzgerald RDCS, RVT, RN, BSN Ordering Physician: OSVALDO GANT Procedure Note Tommy Whitmore MD - 06/30/2024 1 1 [facility] Heart Station [address] [facility] [place] [place] [address] [phone] (fax) Echocardiogram-[facility] Name: OKSANA ALVAREZ Study Date: 06/30/2024 10:59 AM B/P: 151 mmHg/77 mmHg HR: 84 bpm Date of : 1950 Location: [facility] Height: 61 in. Age: 74 year(s) Patient Room: 3129 Weight: 288 lb. Gender: Female Patient Status: InPt BSA: 2.21 m2 Indication: Edema, Acute congestive heart failure, Left ventricular hypertrophy Examination: Echocardiogram (Complete), Lumason Contrast Image Quality: Poor sound transmission in apical views Patient Consent: Procedure explained to patient Exam Details Contrast: I.V. dose of Lumason Conclusions Left Ventricle: Left ventricular outflow tract obstruction; 2.5 cm/s max gradient 25 mmHg at rest and 3.2 cm/s max gradient 40 mmHg with Valsalva maneuver. The left ventricle is small in size. Global left ventricular systolic function is hyperdynamic. The EF is 75 % visually. Interventricular septal thickness is increased in the proximal portion. No regional wall motion abnormality. Grade 1, mild diastolic dysfunction (abnormal relaxation). Doppler flows are increased in the midcavity of the LV, suggestive of hyperdynamic function.. Right Ventricle: The right ventricle is enlarged. Right ventricular systolic function appears normal. Doppler studies suggest mildly elevated right sided pressures. Left Atrium: The left atrium is normal in size. Right Atrium: The right atrium is mildly enlarged. Tricuspid Valve: Mild tricuspid regurgitation. Overall Conclusions: No significant valvular abnormalities Due to suboptimal imaging Lumason contrast was administered for opacification and better delineation of endocardial borders. Lumason utilized for boarder delineation and left ventricular measurements. Measurements Left Ventricle Label Value Normal Value LVOTd 1.9 cm (18cm - 20cm) LVOT VTI 39 cm (18cm - 22cm) LVOT PGmax 13 mmHg LVEF visual 75 % LVDd, 2D 3.72 cm (3.9cm - 5.3cm) LVDs, 2D 2.22 cm (2.1cm - 4cm) IVSd, 2D 1.06 cm (0.6cm - 1.1cm) LVPWd, 2D 0.7 cm (0.6cm - 0.9cm) LV Mass, 2D ASE 94.69 g LV Mass Index, 2D ASE 42.8 g/m?? (44g/m?? - 88.4g/m??) RWT, MM 0.38 (0 - 0.42) LVSVI, 2D 19 ml/m2 LVOT PGmean 7 mmHg LVSV_LVOT 111 ml Right Ventricle Label Value Normal Value RVDd, 2D 4.97 cm (1.9cm - 3.8cm) TAPSE 2.3 cm Left Atrium Label Value Normal Value LA Volume, BP 51 ml (22ml - 52ml) LADs, 2D 3.3 cm (2.7cm - 3.8cm) LAESV index, BP 23.1 ml/m?? Right Atrium Label Value Normal Value RA Area 19.3 cm?? Aortic Valve Label Value Normal Value AV DVI 0.98 AV VTI 32.5 cm Mitral Valve Label Value Normal Value MV E Vmax 1.02 m/s MV A Vmax 1.38 m/s MV E/A 0.74 MV E/E' lateral 14.2 MV E' lateral 0.07 m/s Tricuspid Valve Label Value Normal Value RA Pressure 3 mmHg RVSP 37 mmHg TR Vmax 2.91 m/s Aorta Label Value Normal Value AoRoot, 2D 2.8 cm (1.4cm - 3.8cm) Valvular Assessment LVOT 0.7 - 1.1 m/sec Aortic Valve 1.0 - 1.7 m/sec Mitral Valve 0.6 - 1.3 m/sec Tricuspid Valve 0.3 - 0.7 m/sec Pulmonic Valve 0.6 - 0.9 m/sec Regurgitation No Trivial Mild Trivial Stenosis No No No No Max Velocity 1.77 m/sec 1.80 m/s 1.02 m/sec 0.70 m/s 1.23 m/s Max Gradient 13.00 mmHg 2.00 mmHg 6.00 mmHg Mean Gradient 7.00 mmHg Valve Area 2.8 cm?? Findings Left Ventricle: Left ventricular outflow tract obstruction; 2.5 cm/s max gradient 25 mmHg at rest and 3.2 cm/s max gradient 40 mmHg with Valsalva maneuver. The left ventricle is small in size. Global left ventricular systolic function is hyperdynamic. The EF is 75 % visually. Interventricular septal thickness is increased in the proximal portion. No regional wall motion abnormality. Grade 1, mild diastolic dysfunction (abnormal relaxation). Doppler flows are increased in the midcavity of the LV, suggestive of hyperdynamic function.. Right Ventricle: The right ventricle is enlarged. Right ventricular systolic function appears normal. Doppler studies suggest mildly elevated right sided pressures. Left Atrium: The left atrium is normal in size. Right Atrium: The right atrium is mildly enlarged. Mitral Valve: The mitral valve is normal in mobility and thickness. Trivial mitral regurgitation. No mitral valve stenosis. Aortic Valve: The aortic valve is normal. No aortic valve regurgitation. No aortic valve stenosis. The aortic valve is trileaflet. Tricuspid Valve: Normal tricuspid valve. Mild tricuspid regurgitation. No tricuspid valve stenosis. Pulmonic Valve: Normal pulmonary valve. Trivial pulmonary regurgitation. No pulmonic valve stenosis. Aorta: The aortic root is normal in size. Ascending aorta not visualized. The aortic arch measures 2.90 cm. Aortic arch is normal in size. Great Vessels: IVC: The IVC is not well visualized. Pericardium: No pericardial effusion. Procedure Staff Reading Group: [facility] Referring Physician: YESSENIA GARCIA Journeyman Pipefitter: Judy Fitzgerald RDCS, RVT, RN, BSN Ordering Physician: OSVALDO GANT Osvaldo Gant MD CV ECHO PROCEDURES * (ABNORMAL) Anti-Xa (Heparin Level) (06/30/2024 8:51 AM EDT) Anti-Xa (Heparin) >1.00(HH) 0.3 - 0.7 IU/mL 06/30/2024 10:20 AM EDT [facility] ([facility]) Comment:Rivaroxaban and Apix aban will interfere with the anti Xa assay used to monitor UFH and LMWH. Blood Venous blood specimen / Unknown Arterial Line / Unknown 06/30/2024 8:51 AM EDT 06/30/2024 9:23 AM EDT Osvaldo Gant MD LAB BLOOD ORDERABLES Performing Organization Address City/[facility]/ZIP Co de Phone Number [facility] ([facility]) [address] [place] [address] * ECG 12 lead (06/30/2024 6:40 AM EDT) Ventricular Rate 96 BPM GE MUSE Atrial Rate 96 BPM GE MUSE ID Interval 160 ms GE MUSE QRS DURATION 84 ms GE MUSE QT Interval 380 ms GE MUSE QTC CALCULATION(BAZE TT) 480 ms GE MUSE P [place] -7 degrees GE MUSE R-[place] 18 degrees GE MUSE T Wave [place] 20 degrees GE MUSE 06/30/2024 12:0 7 AM EDT 06/30/2024 7:14 AM EDT Impressions GE MUSE - 06/30/2024 7:14 AM EDT Normal sinus rhythm Normal ECG No previous ECGs available Confirmed by Chucky Clifton ([id number]) on 06/30/2024 7:14:44 AM Narrative Procedure Note Chucky Clifton MD - 06/30/2024 IMPRESSION: Normal sinus rhythm Normal ECG No previous ECGs available Confirmed by Chucky Clifton ([id number]) on 06/30/2024 7:14:44 AM López Calderon MD ECG ORDERABLES Performing Organization Address City/[facility]/ZIP Co de Phone Number GE MUSE * (ABNORMAL) Urinalysis with reflex culture (06/30/2024 4:43 AM EDT) Color, Urine Colorless Colorless, Yellow, Light-Yellow 06/30/2024 5:44 AM EDT [facility] ([facility]) Clarity, Urine Clear Clear 06/30/2024 5:44 AM EDT [facility] ([facility]) pH, Urine 6.0 5.0 - 8.0 pH 06/30/2024 5:44 AM EDT [facility] ([facility]) Leukocytes, Urine Negative Negative 06/30/2024 5:44 AM EDT [facility] ([facility]) Nitrite, Urine Negative Negative 06/30/2024 5:44 AM EDT [facility] ([facility]) Protein, Urine Negative Negative mg/dL 06/30/2024 5:44 AM EDT [facility] ([facility]) Glucose, Urine Normal Normal mg/dL 06/30/2024 5:44 AM EDT [facility] ([facility]) Bilirubin, Urine Negative Negative 06/30/2024 5:44 AM EDT [facility] ([facility]) Specific [place], Urine 1.009(L) 1.010 - 1.030 06/30/2024 5:44 AM EDT [facility] ([facility]) Ketones, Urine Negative Negative mg/dL 06/30/2024 5:44 AM EDT [facility] ([facility]) Blood, Urine Negative Negative 06/30/2024 5:44 AM EDT [facility] ([facility]) Urobilinogen, Urine Normal Normal mg/dL 06/30/2024 5:44 AM T [facility] ([facility]) Urine Urine specimen obtained by clean catch procedure / Unknown Non-blood Collection / Unknown 06/30/2024 4:43 AM EDT 06/30/2024 4:53 AM EDT Narrative [facility] ([facility]) - 06/30/2024 5:44 AM EDT Microscopics not performed on urines with negative chemical reactions unless requested on original order. López Calderon MD LAB URINE ORDERABLES [facility] ([facility]) [address] [place] [address] * Lactic acid with 4 hour reflex (06/29/2024 10:19 PM EDT) Lactate 1.6 0.5 - 2.2 mmol/L 06/29/2024 11:00 PM EDT [facility] ([facility]) Blood Venous blood specimen / Unknown Venipuncture / Unknown 06/29/2024 10:19 PM EDT 06/29/2024 10:22 PM EDT López Calderon MD LAB BLOOD ORDERABLES [facility] ([facility]) [address] [place] [address] * XR chest 1 view (06/29/2024 10:18 PM EDT) Anatomical Region Laterality Modality Chest Computed Radiogr aphy 06/29/2024 10:2 8 PM EDT Impressions 06/29/2024 10:34 PM EDT * Cardiomegaly with mild pulmonary vascular congestion. * Right basilar opacity may represent atelectasis versus pneumonia. Approved by:Connie Huff06/29/2024 10:30 PM. I, Logan Price,have reviewed the image(s) and agree with the findings in this report. Electronically signed: Logan Price. Narrative 06/29/2024 10:34 PM EDT XR CHEST 1 VIEW HISTORY: Shortness of breath, edema COMPARISON: None TECHNIQUE: Single AP upright view of the chest obtained. FINDINGS: Cardiomegaly with mild pulmonary vascular congestion. Right basilar opacity. No pleural effusion. No pneumothorax. Mild elevation of the right hemidiaphragm. Procedure Note Logan Price MD - 06/29/2024 XR CHEST 1 VIEW HISTORY: Shortness of breath, edema COMPARISON: None TECHNIQUE: Single AP upright view of the chest obtained. FINDINGS: Cardiomegaly with mild pulmonary vascular congestion. Right basilaropacity. No pleural effusion. No pneumothorax. Mild elevation of the righthemidiaphragm. IMPRESSION: *Cardiomegaly with mild pulmonary vascular congestion. *Right basilar opacity may represent atelectasis versus pneumonia. Approved by:Connie Huff06/29/2024 10:30 PM. I, Logan Price,have reviewed the image(s) and agree with the findingsin this report. Electronically signed: Logan Price. López Calderon MD IMG XR PROCEDURES * High Sensitivity Troponin I (06/29/2024 10:14 PM EDT) [facility] High Sensitivity Troponin I 9 <15 ng/L 06/29/2024 10:51 PM EDT [facility] ([facility]) Blood Venous blood specimen / Unknown Venipuncture / Unknown 06/29/2024 10:14 PM EDT 06/29/2024 10:19 PM EDT López Calderon MD LAB BLOOD ORDERABLES [facility] ([facility]) [address] [place] [address] * (ABNORMAL) CBC auto differential (06/29/2024 10:14 PM EDT) [facility] Auto WBC 8.63 4.00 - 10.60 10*3/uL 06/29/2024 10:44 PM EDT [facility] ([facility]) RBC 3.55(L) 3.80 - 5.00 10*6/uL 06/29/2024 10:44 PM EDT [facility] ([facility]) Hemoglobin 12.3 12.0 - 15.0 g/dL 06/29/2024 10:44 PM EDT [facility] ([facility]) Hematocrit 37.9 36.0 - 45.0 % 06/29/2024 10:44 PM EDT [facility] ([facility]) MCV 106.8(H) 82.0 - 98.0 fL 06/29/2024 10:44 PM EDT [facility] ([facility]) MCH 34.6(H) 27.0 - 33.0 pg 06/29/2024 10:44 PM EDT [facility] ([facility]) MCHC 32.5 32.0 - 35.0 g/dL 06/29/2024 10:44 PM EDT [facility] ([facility]) RDW 15.3(H) 11.5 - 15.0 % 06/29/2024 10:44 PM EDT [facility] ([facility]) Neutrophils % 69.0 40.0 - 72.0 % 06/29/2024 10:44 PM EDT [facility] ([facility]) Lymphocytes % 18.9(L) 20.0 - 45.0 % 06/29/2024 10:44 PM EDT [facility] ([facility]) Monocytes % 8.7 5.0 - 12.0 % 06/29/2024 10:44 PM EDT [facility] ([facility]) Eosinophils % 2.5 0.0 - 6.0 % 06/29/2024 10:44 PM EDT [facility] ([facility]) Basophils % 0.6 0.0 - 1.0 % 06/29/2024 10:44 PM EDT [facility] ([facility]) Neutrophils Absolute 5.95 1.60 - 7.60 10*3/uL 06/29/2024 10:44 PM EDT [facility] ([facility]) Lymphocytes Absolute 1.63 1.20 - 4.00 10*3/uL 06/29/2024 10:44 PM EDT [facility] ([facility]) Monocytes Absolute 0.75 0.10 - 1.00 10*3/uL 06/29/2024 10:44 PM EDT [facility] ([facility]) Eosinophils Absolute 0.22 0.00 - 0.50 10*3/uL 06/29/2024 10:44 PM EDT [facility] ([facility]) Basophils Absolute 0.05 0.00 - 0.20 10*3/uL 06/29/2024 10:44 PM EDT [facility] ([facility]) Platelets 289 150 - 400 10*3/uL 06/29/2024 10:44 PM EDT [facility] ([facility]) nRBC % 0.0 0 % 06/29/2024 10:44 PM EDT [facility] ([facility]) Immature Granulocytes % 0.3 0.0 - 1.0 % 06/29/2024 10:44 PM EDT [facility] ([facility]) Immature Granulocytes Absolute 0.03 0.00 - 0.20 10*3/uL 06/29/2024 10:44 PM EDT [facility] ([facility]) Blood Venous blood specimen / Unknown Venipuncture / Unknown 06/29/2024 10:14 PM EDT 06/29/2024 10:20 PM EDT López Calderon MD LAB BLOOD ORDERABLES Performing Organization Address City/[facility]/ZIP Co de Phone Number [facility]) [address] [place] [address] * APTT (06/29/2024 10:14 PM EDT) aPTT 34.7 25.0 - 35.0 Seconds 06/29/2024 11:27 PM EDT [facility] ([facility]) Comment:Clinical significanc e of the APTT is questionable in the presence of heparin. Blood Venous blood specimen / Unknown Venipuncture / Unknown 06/29/2024 10:14 PM EDT 06/29/2024 10:19 PM EDT López Calderon MD LAB BLOOD ORDERABLES Performing Organization Address [facility]/ZIP Co de Phone Number [facility]) [address] [place] [address] * Protime-INR (06/29/2024 10:14 PM EDT) Protime 13.4 12.3 - 14.8 Seconds 06/29/2024 11:27 PM EDT [facility]) INR 1.02 0.90 - 1.10 06/29/2024 11:27 PM EDT [facility]) Comment: [facility] RECOMMENDED INR FOR WARFARIN THERAPY CONDITION INR PROPHYLAXIS OF VENOUS THROMBOSIS 2-3 (HIGH-RISK SURGERY) TREATMENT OF VENOUS THROMBOSIS 2-3 TREATMENT OF PULMONARY EMBOLISM 2-3 PREVENTION OF SYSTEMIC EMBOLISM: 2-3 ACUTE MYOCARDIAL INFARCTION TISSUE HEART VALVES VALVULAR HEART DISEASE ATRIAL FIBRILLATION RECURRENT SYSTEMIC EMBOLISM MECHANICAL HEART VALVE 2.5-3.5 FROM: ORAL ANTICOAGULANTS. MECHANISM OF ACTION, CLINICAL EFFECTIVENESS, AND OPTIMAL THERAPEUTIC RANGE. CHEST 1995;[id number]. Blood Venous blood specimen / Unknown Venipuncture / Unknown 06/29/2024 10:14 PM EDT 06/29/2024 10:19 PM EDT López Calderon MD LAB BLOOD ORDERABLES Performing Organization Address City/[facility]/ZIP Co de Phone Number [facility] [address] [place] [address] * B-type natriuretic peptide (06/29/2024 10:14 PM EDT) [facility] BNP 49 0 - 100 pg/mL 06/29/2024 10:49 PM EDT [facility] ([facility]) Blood Venous blood specimen / Unknown Venipuncture / Unknown 06/29/2024 10:14 PM EDT 06/29/2024 10:20 PM EDT López Calderon MD LAB BLOOD ORDERABLES [facility] [address] [place] [address] from Last 3 Months Advance Directives * Full Code (Latest Code Status on File) Date Activated Date Inactivated Comments 06/30/2024 7:48 AM 07/07/2024 4:19 PM Care Teams Customs And Border Protection Officer Relationship Specialty Start Date End Date Yessenia Garcia MD [address] [place] [address] PCP - General Internal Medicine 06/29/24
--- OUTSIDE RECORDS SUMMARY | 2024-09-20 11:05 | XMS_ITS | Encounter Summary ---
Author Organization [facility] Address [address] [place] [address] Care Team Providers Care Joint Cutter Name Role Phone Andrey rOtiz Primary Care Provider [phone] Source Comments In the event this information is protected by the Federal Confidentiality of Alcohol and Drug AbusePatient Records regulations: The Federal rules restrict any use of the information to criminally investigate or prosecute any alcohol or drug abuse patient.[facility] Encounter Details Date Type Department Care Team (Latest Contact Info) Description 11/28/2002 Prob Sum Review Provider, [facility] Social History Tobacco Use Types Packs/Day Years Used Date Smoking Tobacco: Never Assessed Comments No Sex and Gender Information Value Date Recorded Sex Assigned at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 Legal Sex Female 9:11 AM EST Gender Identity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 Sexual Orientation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 documented as of this encounter Plan of Treatment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 documented as of this encounter Visit Diagnoses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documented in this encounter Care Teams Joint Cutter Relationship Specialty Start Date End Date Andrey Ortiz [address] [place] [address] STACY ALMARAZ [phone] PCP - General 06/06/02 documented as of this encounter
--- OUTSIDE RECORDS SUMMARY | 2024-09-20 11:05 | XMS_ITS | Encounter Summary ---
Author Organization [facility] Address [address] [place] [address] Care Team Providers Care Optical Technician Name Role Phone Salas Massey MD Primary Care Provider [phone] Jignesh Dinh MD Unavailable Eliot Rider DO Unavailable [phone] Salas Massey MD Unavailable [phone] Marixa Sampson RN Unavailable Unavailable Encounter Details Date Type Department Care Team (Late st Contact Info) Description 07/12/2024 Orders Only [facility] [address] 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 documented as of this encounter Plan of Treatment Upcoming Encounters Date Type Department Care Team (Late st Contact Info) Description 09/21/2024 2:30 PM EDT Office Visit [facility] [address] [place] [phone] 10/24/2024 2:30 PM EDT Clinical Support [facility] [address] [place] [phone] Dov Gonzalez RN documented as of this encounter Visit Diagnoses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documented in this encounter Care Teams Optical Technician Relationship Specialty Start Date End Date Salas Massey MD [address] [place] [address] PCP - General Internal Medicine 10/20/22 Salas Massey MD [address] [place] [id number] PCP - Devoted 04/13/24 Jignesh Dinh MD [address] [place] [address] Referring Physician Neurology 04/15/23 Eliot Rider DO [address] [place] [address] Referring Physician Orthopaedic Surgery 07/07/23 Adrián, Marixa, RN Registered Nurse Family Medicine 06/23/24 documented as of this encounter
--- OUTSIDE RECORDS SUMMARY | 2024-09-20 11:06 | XMS_ITS | Encounter Summary ---
Author Organization [facility] Address [address] [facility] [place] [address] Care Team Providers Care Capital Equipment Specialist Name Role Phone Salas Massey MD Primary Care Provider Jignesh Dinh MD Unavailable [phone] Eliot Rider DO Unavailable [phone] Salas Massey MD Unavailable [phone] Marixa Sampson RN Unavailable Unavailable Encounter Details Date Type Department Care Team (Late st Contact Info) Description 09/19/2024 Bamboo flowsheet [facility] [address] [facility] [address] [place] [phone] Dov Gonzalez RN Social History Tobacco Use Types Packs/Day Years [...] How often do you attend chur or yazidism services? Patient declined 08/13/2024 Do you belong to any clubs o r organizations such as jewish groups, unions, fraternal or athletic groups, or [...] Recorded Patient Health Questionnaire-2 Score 3 09/14/2024 [facility] - Occupational Stress [...] any time in the past [address] [facility], were you homeless or living in a custodial (including now)? 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 documented as of this encounter Plan of Treatment Upcoming Encounters Date Type Department Care Team (Late st Contact Info) Description 09/21/2024 2:30 PM EDT Office Visit [facility] [address] [place] [address] 10/24/2024 2:30 PM EDT Clinical Support [facility] [address] [place] [phone] Dov Gonzalez RN documented as of this encounter Visit Diagnoses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documented in this encounter Care Teams Capital Equipment Specialist Relationship Specialty Start Date End Date Salas Massey MD [address] [place] [address] PCP - General Internal Medicine 10/20/22 Salas Massey MD [address] [place] [address] PCP - Devoted 04/13/24 Jignesh Dinh MD [address] [place] [address] Referring Physician Neurology 04/15/23 Eliot Rider DO [address] [facility] [place] [address] Referring Physician Orthopaedic Surgery 07/07/23 Marixa Sampson, ASHWIN Registered Nurse Family Medicine 06/23/24 documented as of this encounter
--- OUTSIDE RECORDS SUMMARY | 2024-09-20 11:06 | XMS_ITS | Encounter Summary ---
Author Organization [facility] Address [address] [address] Care Team Providers Care Tennis Camp Instructor Name Role Phone Salas Massey MD Primary Care Provider Salas Massey MD Unavailable [phone] Jignesh Dinh MD Unavailable Eliot Rider DO Unavailable [phone] Salas Massey MD Unavailable [phone] Marixa Sampson RN Unavailable Unavailable Encounter Details Date Type Department Care Team (Late st Contact Info) Description 12/02/2022 External Result Encounter [facility] External Department Unsolicited Salas Massey MD [address] [place] [address] Social History Tobacco Use Types Packs/Day Years Used Date Smoking Tobacco: Former Cigarettes Q uit: 04/13/1998 Smokeless Tobacco: Never Alcohol Use Standard Drinks/Week Comments Not Currently 0 (1 standard drink = 0.6 oz pure alcohol) caffeine intake: 1-2 cans of pop per day Education Answer Date Recorded What is the highest level of school you have completed or the highest degree you have received? 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, [place]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 documented as of this encounter Plan of Treatment Upcoming Encounters Date Type Department Care Team (Late st Contact Info) Description 09/21/2024 2:30 PM EDT Office Visit [facility] [address] [place] [address] 10/24/2024 2:30 PM EDT Clinical Support [facility] [address] [place] [address] Dov Gonzalez RN documented as of this encounter Procedures Procedure Name Priority Date/Time Associated Diagnosis Comments CONGENITAL TRANSTHORACIC ECHO (TTE) COMPLETE 12/02/2022 1:04 PM EDT documented in this encounter Results * Congenital transthoracic echo (TTE) complete (12/02/2022 1:04 PM EDT) Anatomical Region Laterality Modality Heart Ultrasound 12/02/2022 1:04 PM EDT Narrative 12/05/2022 1:31 PM EDT [facility] Main [place] [address] [place] [address] Echocardiogram Signed Patient: Oksana Becerril MR#: [id number] : 1950 Acct:[id number] Age/Sex: 72 / F ADM Date: 12/02/22 Loc: Room: Type: [facility] Attending Dr: Salas Massey MD Ordering Provider: Salas Massey MD Date of Service: 12/02/22/ ECH/ECH echo transthoracic: Edema. Copies to: MD Salas Simms MD BSA: 2.2 m2 HR: 96 Reason For Study: Edema. History: DM. HTN. HLD., Former Smoker. Interpretation Summary There is evidence of asymmetrical septal hypertrophy with septum measuring 1.9 cm versus 1.4 cm to the posterior wall with a relatively small LV cavity. No clear evidence of systolic anterior movement of the mitral valve leaflet or LVOT obstruction Left ventricular systolic function is hyperdynamic. The LV ejection fraction is 80 %. A variety of Doppler measurements indicate impaired left ventricular relaxation, which is associated with grade I/IV or mild diastolic dysfunction. Minor LV cavity gradient due to hyperdynamic LV systolic function Compared to prior study, there is no significant change. Procedure/Quality: A two-dimensional transthoracic echocardiogram with color flow, Doppler and injection of contrast agent Definity was performed. A two- dimensional transthoracic echocardiogram with color flow and Doppler was performed. The study was technically suboptimal in quality due to patient body habitus . Left Ventricle: There is evidence of asymmetrical septal hypertrophy with septum measuring 1.9 cm versus 1.4 cm to the posterior wall with a relatively small LV cavity. No clear evidence of systolic anterior movement of the mitral valve leaflet or LVOT obstruction. Left ventricular systolic function is hyperdynamic. The LV ejection fraction is 80 %. A variety of Doppler measurements indicate impaired left ventricular relaxation, which is associated with grade I/IV or mild diastolic dysfunction. Minor LV cavity gradient due to hyperdynamic LV systolic function. Left Atrium: The left atrium appears normal in size. Right Atrium: The right atrium appears normal in size. Right Ventricle: The right ventricular size, thickness and function are normal. Aortic Valve: The aortic valve is normal in structure and function. No aortic regurgitation is present. Mitral Valve: The mitral valve is normal in structure and function. There is no mitral regurgitation noted. Tricuspid Valve: The tricuspid valve is not well visualized. No tricuspid regurgitation. Pulmonic Valve: The pulmonic valve is not well visualized. Arteries: The aortic root is normal size. Pericardium/Pleura: No pericardial effusion seen. There is no pleural effusion. IVC/Hepatic Viens: The inferior vena cava is normal in size, with a normal collapsibility index. Measurements with Normals IVSd: 1.9 cm (0.7-1.1 cm)LVIDd: 2.6 cm (3.7-5.4 cm) LVPWd: 1.4 cm (0.7-1.1 cm)LVIDs: 1.6 cm (2.3-3.6 cm) LA dimension: 3.3 cm (2.3-4.0 cm)Ao root diam: 3.0 cm(2.0-3.6 cm) asc Aorta Diam: 2.9 cm(2.1-3.4cm) Doppler with Normals LV V1 max: 183.5 cm/sec (0.7-1.7m/s)MV E max cosmo: 65.6 cm/sec(0.8-1.3m/s) MV A max cosmo: 130.7 cm/sec(0.0-0.0m/s) MV E/A: 0.50 (<1.5) MMode/2D Measurements Calculations TAPSE: 2.1 cm FS: 38.6 % Ao root area: LVOT diam: 1.8 cm RV S Cosmo: EDV(Teich): 7.0 cm2 LVOT area: 2.7 cm2 14.8 cm/sec 24.0 ml ESV(Teich): 6.9 ml EF(Teich): 71.1 % __ LVLd ap4: 8.0 cm SV(MOD-sp4): LAV(MOD-sp4): LA A2 area: 15.9 cm2 EDV(MOD-sp4): 61.0 ml 25.7 ml 82.7 ml LAV(MOD-sp2): LA A4 area: 14.1 cm2 LVLs ap4: 6.4 cm 32.6 ml LA length (vol): ESV(MOD-sp4): 6.1 cm 21.7 ml LA vol: 31.5 ml EF(MOD-sp4): 73.8 % LA vol index: 14.3 ml/m2 Doppler Measurements Calculations MV dec time: E/E' lat: 10.6 MV dec slope: Ao V2 max: 0.19 sec E/E' med: 15.1 181.0 cm/sec 348.1 cm/sec2 Ao max P.1 mmHg Ao mean P.5 mmHg Ao V2 mean: 128.9 cm/sec Ao V2 VTI: 26.9 cm MELLO(I,D): 2.7 cm2 MELLO(V,D): 2.7 cm2 __ LV V1 max PG: RAP systole: 13.5 mmHg 3.0 mmHg LV V1 mean P.2 mmHg LV V1 mean: 125.3 cm/sec LV V1 VTI: 27.5 cm Transcribed By: SCV Performed At: 12/02/22 1304 Signed By: Emily Hunter MD 12/02/22 8967 Procedure Note Emily Hunter MD - 12/05/2022 [facility] Main [place] [address] [place] [address] Echocardiogram Signed Patient: Oksana Becerril SMR#: [id number] : 9Acct:[id number] Age/Sex: 72 / FADM Date: 12/02/22 Loc: Room:Type: [facility] Attending Dr: Salas Massey MD Ordering Provider: Salas Massey MD Date of Service: 12/02/22/ ECH/ECH echo transthoracic: Edema. Copies to: MD Salas Simms MD BSA: 2.2 m2 HR: 96 Reason For Study: Edema. History: DM. HTN. HLD., Former Smoker. Interpretation Summary There is evidence of asymmetrical septal hypertrophy with septum measuring1.9 cm versus 1.4 cm to the posterior wall with a relatively small LV cavity.No clear evidence of systolic anterior movement of the mitral valve leafletor LVOT obstruction Left ventricular systolic function is hyperdynamic. The LV ejection fraction is 80 %. A variety of Doppler measurements indicate impaired left ventricular relaxation, which is associated with grade I/IV or mild diastolicdysfunction. Minor LV cavity gradient due to hyperdynamic LV systolic function Compared to prior study, there is no significant change. Procedure/Quality: A two-dimensional transthoracic echocardiogram withcolor flow, Doppler and injection of contrast agent Definity was performed. Atwo- dimensional transthoracic echocardiogram with color flow and Doppler was performed. The study was technically suboptimal in quality due to patientbody habitus . Left Ventricle: There is evidence of asymmetrical septal hypertrophywith septum measuring 1.9 cm versus 1.4 cm to the posterior wall with arelatively small LV cavity. No clear evidence of systolic anterior movement of themitral valve leaflet or LVOT obstruction. Left ventricular systolic function is hyperdynamic. The LV ejection fraction is 80 %. A variety of Doppler measurements indicate impaired left ventricular relaxation, which is associated with grade I/IV or mild diastolic dysfunction. Minor LV cavity gradient due to hyperdynamic LV systolic function. Left Atrium: The left atrium appears normal in size. Right Atrium: The right atrium appears normal in size. Right Ventricle: The right ventricular size, thickness and function are normal. Aortic Valve: The aortic valve is normal in structure and function. No aortic regurgitation is present. Mitral Valve: The mitral valve is normal in structure and function.There is no mitral regurgitation noted. Tricuspid Valve: The tricuspid valve is not well visualized. Notricuspid regurgitation. Pulmonic Valve: The pulmonic valve is not well visualized. Arteries: The aortic root is normal size. Pericardium/Pleura: No pericardial effusion seen. There is no pleural effusion. IVC/Hepatic Viens: The inferior vena cava is normal in size, with anormal collapsibility index. Measurements with Normals IVSd: 1.9 cm (0.7-1.1 cm)LVIDd: 2.6 cm (3.7-5.4 cm) LVPWd: 1.4 cm (0.7-1.1 cm)LVIDs: 1.6 cm (2.3-3.6 cm) LA dimension: 3.3 cm (2.3-4.0 cm)Ao root diam: 3.0 cm(2.0-3.6 cm) asc Aorta Diam: 2.9 cm(2.1-3.4cm) Doppler with Normals LV V1 max: 183.5 cm/sec (0.7-1.7m/s)MV E max cosmo: 65.6cm/sec(0.8-1.3m/s) MV A max cosmo: 130.7 cm/sec(0.0-0.0m/s) MV E/A: 0.50 (<1.5) MMode/2D Measurements Calculations TAPSE: 2.1 cm FS: 38.6 % Ao root area: LVOT diam: 1.8 cm RV S Cosmo: EDV(Teich): 7.0 cm2 LVOT area: 2.7 cm2 14.8 cm/sec 24.0 ml ESV(Teich): 6.9 ml EF(Teich): 71.1 % __ LVLd ap4: 8.0 cm SV(MOD-sp4): LAV(MOD-sp4): LA A2 area: 15.9cm2 EDV(MOD-sp4): 61.0 ml 25.7 ml 82.7 ml LAV(MOD-sp2): LA A4 area: 14.1cm2 LVLs ap4: 6.4 cm 32.6 ml LA length (vol): ESV(MOD-sp4): 6.1 cm 21.7 ml LA vol: 31.5 ml EF(MOD-sp4): 73.8 % LA vol index: 14.3 ml/m2 Doppler Measurements Calculations MV dec time: E/E' lat: 10.6 MV dec slope: Ao V2 max: 0.19 sec E/E' med: 15.1 181.0 cm/sec 348.1 cm/sec2 Ao max P.1 mmHg Ao mean P.5 mmHg Ao V2 mean: 128.9 cm/sec Ao V2 VTI: 26.9cm MELLO(I,D): 2.7cm2 MELLO(V,D): 2.7cm2 __ LV V1 max PG: RAP systole: 13.5 mmHg 3.0 mmHg LV V1 mean P.2 mmHg LV V1 mean: 125.3 cm/sec LV V1 VTI: 27.5 cm Transcribed By: SCV Performed At: 12/02/22 5727 Signed By: Emily Hunter MD 12/02/22 0383 Salas Massey MD CV ECHO PROCEDURES Final Result documented in this encounter Visit Diagnoses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documented in this encounter Care Teams Tennis Camp Instructor Relationship Specialty Start Date End Date Salas Massey MD [address] [place] [address] PCP - General Internal Medicine 10/20/22 Salas Massey MD [address] [place] [address] PCP - Devoted 12/12/22 07/12/23 Salas Massey MD [address] [place] [address] PCP - Devoted 04/13/24 Jignesh Dinh MD [address] [place] [address] Referring Physician Neurology 04/15/23 Eliot Rider DO [facility] [place] [address] Referring Physician Orthopaedic Surgery 07/07/23 Marixa Sampson RN Registered Nurse Family Medicine 06/23/24 documented as of this encounter
--- OUTSIDE RECORDS SUMMARY | 2024-09-20 11:06 | XMS_ITS | Referral Summary ---
Author Organization [facility] Address [address] [place] [address] Care Team Providers Care Certified Medicine Aide Name Role Phone Yessenia Garcia MD Primary Care Provider [phone] Encounters Date Type Department Care Team Description 09/20/2024 10:30 AM EDT Follow-Up [facility] [place] [address] [place] [phone] Norbert Levy MD Heart failure with preserved ejection fraction (CMS/HCC) (Primary Dx) 09/05/2024 6:48 PM EDT - 09/05/2024 11:59 PM EDT Hospital Encounter [facility] [address] [place] [address] Hypersomnia Discharge Disposition: Home or Self Care () 08/25/2024 Orders Only [facility] Ne[facility] [address] [place] [address] Slim Angela MD Urinary retention (Primary Dx) 08/17/2024 10:39 AM EDT - 08/17/2024 11:59 PM EDT Hospital Encounter [facility] MR Imaging [address] [place] [address] Left ventricular outflow tract obstruction Discharge Disposition: Home or Self Care () 08/12/2024 [facility] [place] [address] Zuleima Duarte MD 08/08/2024 10:29 AM EDT Hospital Encounter [facility] Vascular [place] [address] Lymphedema; Localized swelling, mass and lump, head Discharge Disposition: Home or Self Care () 08/08/2024 10:30 AM EDT - 08/08/2024 11:59 PM EDT Hospital Encounter [facility] [place] [address] Stage 3b chronic kidney disease (CMS/HCC) Discharge Disposition: Home or Self Care () 08/08/2024 2:15 PM EDT Follow-Up [facility] Vascular and Endovascular Surgery [address] [place] [phone] Beckie Poe PA-C Lymphedema; Xerosis cutis 08/04/2024 Orders Only [facility] Pulmonary [address] [place] [address] Ale Martinez, NEELAM Chronic obstructive pulmonary disease, unspecified COPD type ([facility]) 08/02/2024 Telephone [facility] Vascular and Endovascular Surgery [address] [place] [address] Valentín Hsu MA 08/02/2024 Orders Only [facility] Vascular and Endovascular Surgery [address] [facility] [place] [address] Valentín Hsu MA Lymphedema; Localized swelling, mass and lump, head 07/28/2024 2:00 PM EDT Consult [facility] [address] [place] [address] Zuleima Duarte MD Stage 3b chronic kidney disease ([facility]/HCC) (Primary Dx); BERRIOS (dyspnea on exertion); Essential hypertension; Obstructive sleep apnea syndrome; Lymphedema 07/22/2024 11:40 AM EDT Follow-Up [facility] Cardiology Clinic [address] [place] [address] Chantale Doran CNP Left ventricular outflow tract obstruction (Primary Dx); Nocturnal hypoxia; Primary hypertension; Hypertrophic cardiomyopathy (CMS/HCC); Stage 3b chronic kidney disease (CMS/HCC); Morbid obesity (CMS/HCC); Type 2 diabetes mellitus with diabetic microalbuminuria, with long-term current use of insulin (CMS/HCC); Lymphedema; Obstructive sleep apnea syndrome; Hypokalemia; Shortness of breath 07/11/2024 Telephone [facility] [address] [place] [phone] Sharon Tanner MA 06/29/2024 9:31 PM EDT - 07/07/2024 2:19 PM EDT Hospital Encounter [facility] [address] [place] [phone] López Calderon MD Horani, Omar, MD Saad, Hani, MD Hypertrophic cardiomyopathy (CMS/HCC) (Primary Dx); Acute congestive heart failure, unspecified heart failure type (CMS/HCC); Lymphedema; Pain and swelling of right lower leg; Nocturnal hypoxia; Hypersomnia; Acute on chronic heart failure with preserved ejection fraction (HFpEF) (CMS/HCC); Congestive heart failure, unspecified HF chronicity, unspecified heart failure type (CMS/HCC); Localized edema Discharge Disposition: Home-Health Care [facility] (06) 06/29/2024 Travel from Last 3 Months Allergies Active Allergy Reactions Criticality Noted Date [...] electrolytes creatinine would recommend follow-up with nephrology Farxiga added with current creatinine clearance and discussion with pharmacy to augment renal protective effect Assessment & Plan (07/05/2024 11:34 AM EDT): Monitor serial electrolytes creatinine would recommend follow-up with nephrology Farxiga added with current creatinine clearance and discussion with pharmacy to augment renal protective effect Assessment & Plan (07/05/2024 11:32 AM EDT): Monitor serial electrolytes creatinine would recommend follow-up with nephrology Farxiga added with current creatinine clearance and discussion with pharmacy to augment renal protective effect Assessment & Plan (07/02/2024 11:51 AM EDT): Monitor serial electrolytes creatinine would recommend follow-up with nephrology Farxiga added with current creatinine clearance and discussion with pharmacy to augment renal protective effect Assessment & Plan (06/30/2024 1:19 AM EDT): Monitor serial electrolytes creatinine would recommend follow-up with nephrology Farxiga added with current creatinine clearance and discussion [...] measures in place dietary consult and social worker masters consult Primary osteoarthritis involving multiple joints 11/04/2023 [...] Date CHF (congestive heart failure) 06/30/2024 06/30/2024 Social History Tobacco Use Types Packs/Day Years Used Date Smoking Tobacco: Never Smokeless Tobacco: Never Tobacco Cessation:Counseling Given: Not Answered Alcohol Use Standard Drinks/Week Comments Never 0 (1 standard drink = 0.6 oz pur e alcohol) [facility] Utilities Answer Date Recorded In the past 12 months has [facility] [employer], gas, oil, or water [employer] threatened to shut off services in your [...] any time in the past 12 m [facility], were you homeless or living in a senior living (including now)? No 06/30/2024 Hunger Vital Sign [...] Info) Description 10/06/2024 2:30 PM EDT Follow-Up [facility] Nephrology Clinic [address] [place] [phone] Zuleima Duarte MD [address] [place] 01/10/2025 1:00 PM EDT Office Visit [facility] [address] [place] [phone] Shoiab Pierson MD [address] [facility] [address] [facility] [place] [address] Procedures Procedure Name Priority Date/Time Associated Diagnosis [...] EDT Stage 3b chronic kidney disease (CMS/HCC) VASC US LOWER EXTREMITY VENOUS INSUFFICIENCY BILATERAL (REFLUX) Routine [...] of the myocardium. Electronically signed: Darian Ramirez. Narrative 08/22/2024 8:30 AM EDT STUDY: Cardiac MRI [...] the myocardium. Electronically signed: Darian Ramirez. Chantale Andreea [facility] MRI PROCEDURES * US renal complete (08/08/2024 [...] bladder mass identified. Post void bladder residual [id number] mL. IMPRESSION: *Unremarkable appearance of the kidneys. *Post void bladder residual measuring 502 mL. Electronically signed: Maninder Rodriguez MD. Zuleima Duarte MD IMG US PROCEDURES * Sodium, urine, random (08/08/2024 12:17 PM EDT) Sodium, Ur 124 mmol/L 08/08/2024 2:10 PM EDT [facility] ([facility]) Urine Urine specimen obtained by clean catch procedure / Unknown Non-blood Collection / Unknown 08/08/2024 12:17 PM EDT 08/08/2024 12:30 PM EDT Zuleima Duarte MD LAB URINE ORDERABLES Performing Organization Address [facility] Co de Phone Number [facility]) [address] [phone] * Protein, urine, random (08/08/2024 12:17 PM EDT) Protein, Ur 5.1 mg/dL 08/08/2024 2:10 PM EDT [facility] ([facility]) Comment:There are no establi shed reference values for random urine specimens. Urine Urine specimen obtained by clean catch procedure / Unknown Non-blood Collection / Unknown 08/08/2024 12:17 PM EDT 08/08/2024 12:30 PM EDT Zuleima Duarte MD LAB URINE ORDERABLES Performing Organization Address City/[facility]/ZIP Co de Phone Number [facility]) [address] [place], [place] [phone] * Creatinine, urine, random (08/08/2024 12:17 PM EDT) Creatinine, Ur 56.0 26 - 299 mg/dL 08/08/2024 2:10 PM EDT [facility] ([facility]) Urine Urine specimen obtained by clean catch procedure / Unknown Non-blood Collection / Unknown 08/08/2024 12:17 PM EDT 08/08/2024 12:30 PM EDT Zuleima Duarte MD LAB URINE ORDERABLES [facility]) [address] [place] [address] * Phosphorus (08/08/2024 12:17 PM EDT) Phosphorus 4.4 2.5 - 5.0 mg/dL 08/08/2024 1:02 PM EDT [facility]) Blood Venous blood specimen / Unknown Venipuncture / Unknown 08/08/2024 12:17 PM EDT 08/08/2024 12:35 PM EDT Zuleima Duarte MD LAB BLOOD ORDERABLES Performing Organization Address City/[facility]/ZIP Co de Phone Number [facility]) [address] [place] [address] * (ABNORMAL) PTH, intact (08/08/2024 12:17 PM EDT) PTH 118(H) 12 - 88 pg/mL 08/08/2024 1:18 PM EDT [facility]) Blood Venous blood specimen / Unknown Venipuncture / Unknown 08/08/2024 12:17 PM EDT 08/08/2024 12:35 PM EDT Zuleima Duarte MD LAB BLOOD ORDERABLES [facility]) [address] [place] [address] * Magnesium (08/08/2024 12:17 PM EDT) Magnesium 2.2 1.9 - 2.7 mg/dL 08/08/2024 1:02 PM EDT [facility] ([facility]) Blood Venous blood specimen / Unknown Venipuncture / Unknown 08/08/2024 12:17 PM EDT 08/08/2024 12:35 PM EDT Zuleima Duarte MD LAB BLOOD ORDERABLES [facility] ([facility]) [address] [place] [address] * (ABNORMAL) Comprehensive metabolic panel (08/08/2024 12:17 PM EDT) Only the most recent of3 resultswithin the time period is included. Sodium 138 136 - 145 mmol/L 08/08/2024 1:02 PM EDT [facility] ([facility]) Potassium 4.6 3.5 - 5.1 mmol/L 08/08/2024 1:02 PM EDT [facility] ([facility]) Chloride 98 98 - 107 mmol/L 08/08/2024 1:02 PM EDT [facility] ([facility]) CO2 36(H) 21 - 31 mmol/L 08/08/2024 1:02 PM EDT [facility] ([facility]) Anion Gap 9 7 - 20 mmol/L 08/08/2024 1:02 PM EDT [facility] ([facility]) BUN 23 7 - 25 mg/dL 08/08/2024 1:02 PM EDT [facility] ([facility]) Creatinine 1.41(H) 0.60 - 1.20 mg/dL 08/08/2024 1:02 PM EDT [facility] ([facility]) BUN/Creatinine Ratio 16.3 07/13 1:02 PM EDT [facility] ([facility]) Glucose 101(H) 70 - 100 mg/dL 08/08/2024 1:02 PM EDT [facility] ([facility]) Calcium 9.0 8.6 - 10.3 mg/dL 08/08/2024 1:02 PM EDT [facility] ([facility]) AST 14 13 - 39 U/L 08/08/2024 1:02 PM EDT [facility] ([facility]) ALT (SGPT) 12 7 - 52 U/L 08/08/2024 1:02 PM EDT [facility] ([facility]) Alkaline Phosphatase 83 34 - 104 U/L 08/08/2024 1:02 PM EDT [facility] ([facility]) Total Protein 7.3 6.0 - 8.3 g/dL 08/08/2024 1:02 PM EDT [facility] ([facility]) Albumin 4.1 3.5 - 5.7 g/dL 08/08/2024 1:02 PM EDT [facility] ([facility]) Total Bilirubin 0.3 0.3 - 1.0 mg/dL 08/08/2024 1:02 PM EDT [facility] ([facility]) eGFR 38.7(L) >60.0 mL/min/1. 73m*2 08/08/2024 1:02 PM EDT [facility] ([facility]) Comment:[facility] s estimated glomerular filtration rate (eGFR) [...] Duarte MD LAB BLOOD ORDERABLES [facility] ([facility]) [address] [place] [address] * Vascular US lower extremity venous insufficiency [...] of the superficial veins as well as stem roller or crusher operator veins were evaluated. Veins evaluated include the [...] of the superficial veins as well as stem roller or crusher operator veins were evaluated. Veins evaluated include the [...] mg/dL 07/07/2024 6:28 AM EDT [facility] ([facility]) Comment:[id number] Blood Capillary blood specimen / Unknown 07/07/2024 6:17 AM EDT 07/07/2024 6:28 AM EDT Narrative [facility] ([facility]) - 07/07/2024 6:28 AM EDT Waived Testing in the ED is performed under the ED CLIA certificate #[id number]. Marcy Olivo MD LAB BLOOD ORDERABLES [facility] ([facility]) [address] [place] [address] * Lavender Top (07/07/2024 4:21 AM EDT) Only the most recent of3 resultswithin the time period is included. Pathologist [facility] Extra Tube Hold for add-ons. 07/07/2024 6:01 AM EDT [facility] ([facility]) Comment:Auto resulted. Blood Venous blood specimen / Unknown 07/07/2024 4:21 AM EDT 07/07/2024 4:51 AM EDT Marcy Olivo MD LAB BLOOD ORDERABLES Performing Organization Address City/[facility]/ZIP Co de Phone Number [facility] ([facility]) [address] [place] [address] * (ABNORMAL) Basic metabolic panel (07/07/2024 4:21 AM EDT) Only the most recent of3 resultswithin the time period is included. Pathologist [facility] Sodium 138 136 - 145 mmol/L 07/07/2024 5:11 AM EDT [facility] ([facility]) Potassium 3.6 3.5 - 5.1 mmol/L 07/07/2024 5:11 AM EDT [facility] ([facility]) Chloride 97(L) 98 - 107 mmol/L 07/07/2024 5:11 AM EDT [facility] ([facility]) CO2 32(H) 21 - 31 mmol/L 07/07/2024 5:11 AM EDT [facility] ([facility]) BUN 46(H) 7 - 25 mg/dL 07/07/2024 5:11 AM EDT [facility] ([facility]) Creatinine 1.54(H) 0.60 - 1.20 mg/dL 07/07/2024 5:11 AM EDT [facility] ([facility]) Glucose 107(H) 70 - 100 mg/dL 07/07/2024 5:11 AM EDT [facility] ([facility]) Calcium 8.9 8.6 - 10.3 mg/dL 07/07/2024 5:11 AM EDT [facility] ([facility]) Anion Gap 13 7 - 20 mmol/L 07/07/2024 5:11 AM EDT [facility] ([facility]) eGFR 34.8(L) >60.0 mL/min/1. 73m*2 07/07/2024 5:11 AM EDT [facility] ([facility]) Comment:[facility] s estimated glomerular filtration rate (eGFR) [...] 29.9 06/12 5:11 AM EDT [facility] ([facility]) Blood Venous blood specimen / Unknown Arterial Line / Unknown 07/07/2024 4:21 AM EDT 07/07/2024 4:42 AM EDT Marcy Olivo MD LAB BLOOD ORDERABLES [facility] ([facility]) [address] [place] [address] * Vasc Us Lower Extremity Venous Duplex [...] or superficial vein thrombosis in bilateral lowerextremities. Kellilyn Topete PA-C IMG CV VASCULAR PROC EDURES * TSH3 Reflex to FT4 (07/01/2024 4:46 AM EDT) Pathologist [facility] TSH 0.94 0.34 - 5.60 mIU/L 07/01/2024 6:09 AM EDT [facility] ([facility]) Blood Venous blood specimen / Unknown Arterial Line / Unknown 07/01/2024 4:46 AM EDT 07/01/2024 5:16 AM EDT Osvaldo Gant MD LAB BLOOD ORDERABLES [facility]) [address] [place] [phone] * (ABNORMAL) Hemoglobin A1c (07/01/2024 4:46 AM EDT) [facility] Hemoglobin A1C 6.8(H) 4.0 - 6.0 % 07/01/2024 8:29 AM EDT [facility] ([facility]) Estimated Average Glucose 148 mg/dL 07/01/2024 8:29 AM EDT [facility] ([facility]) Blood Venous blood specimen / Unknown Arterial Line / Unknown 07/01/2024 4:46 AM EDT 07/01/2024 5:18 AM EDT Osvaldo Gant MD LAB BLOOD ORDERABLES [facility]) [address] [place] [address] * (ABNORMAL) Vitamin B12 (07/01/2024 4:46 AM EDT) Pathologist [facility] Vitamin B-12 1,095(H) 180 - 914 pg/mL 07/01/2024 6:09 AM EDT [facility] ([facility]) Comment: REFERENCE RANGES: 180-914 pg/mL Normal 145-179 pg/mL Indeterminate <145 pg/mL Deficient Blood Venous blood specimen / Unknown Arterial Line / Unknown 07/01/2024 4:46 AM EDT 07/01/2024 5:16 AM EDT Osvaldo Gant MD LAB BLOOD ORDERABLES [facility] ([facility]) [address] [place] [address] * Lipid panel (07/01/2024 4:46 AM EDT) Triglycerides 146 <150 mg/dL 07/01/2024 5:45 AM EDT [facility] ([facility]) Comment: TRIGLYCERIDE REFERENCE RANGE: 20 YEARS AND OLDER CARDIOVASCULAR RISK LESS THAN 150 mg/dL LOW RISK 150 TO 199 mg/dL BORDERLINE RISK 200 mg/dL AND GREATER HIGH RISK Cholesterol 121 120 - 200 mg/dL 07/01/2024 5:45 AM EDT [facility] ([facility]) LDL Calculated 59 0 - 160 mg/dL 07/01/2024 5:45 AM EDT [facility] ([facility]) HDL 33 23 - 92 mg/dL 07/01/2024 5:45 AM EDT [facility] ([facility]) Non HDL Cholesterol 88 07/01/2024 5:45 AM EDT [facility] ([facility]) Total VLDL-C 29 0 - 40 mg/dL 07/01/2024 5:45 AM EDT [facility] ([facility]) Cholesterol/HDL Ratio 3.7 mg/dL 07/01/2024 5:45 AM EDT [facility] ([facility]) Blood Venous blood specimen / Unknown Arterial Line / Unknown 07/01/2024 4:46 AM EDT 07/01/2024 5:16 AM EDT Osvaldo Gant MD LAB BLOOD ORDERABLES [facility] ([facility]) [address] [place] [address] * COMPLETE ECHO (TTE) W/ IMAGING AGENT (06/30/2024 11:34 AM EDT) Anatomical Region Laterality Modality Other 06/30/2024 10:5 9 AM EDT Narrative 06/30/2024 4:48 PM EDT 1 1 [facility] Heart Station [address] [place] [address] (fax) Echocardiogram-[facility] Name: OKSANA ALVAREZ Study Date: 06/30/2024 10:59 AM B/P: 151 mmHg/77 mmHg HR: 84 bpm Date of : 1950 Location: [facility] Height: 61 in. Age: 74 year(s) Patient [...] No pericardial effusion. Procedure Staff Reading Group: [facility] Referring Physician: YESSENIA GARCIA Passport Support Associate: Judy Fitzgerald RDCS, RVT, RN, BSN Ordering Physician: OSVALDO GANT Procedure Note Tommy Whitmore MD - 06/30/2024 1 1 [facility] Heart Station [address] [facility] [place] [address] [phone] (fax) Echocardiogram-[facility] Name: OKSANA ALVAREZ Study Date: 06/30/2024 10:59 AM B/P: 151 mmHg/77 mmHg HR: 84 bpm Date of : 1950 Location: [facility] Height: 61 in. Age: 74 year(s) Patient [...] No pericardial effusion. Procedure Staff Reading Group: [facility] Referring Physician: YESSENIA GARCIA Passport Support Associate: Judy Fitzgerald, YUSEF, RVT, RN, BSN Ordering Physician: OSVALDO GANT Osvaldo Gant MD CV ECHO PROCEDURES * (ABNORMAL) Anti-Xa (Heparin Level) (06/30/2024 8:51 AM EDT) Anti-Xa (Heparin) >1.00(HH) 0.3 - 0.7 IU/mL 06/30/2024 10:20 AM EDT [facility] ([facility]) Comment:Rivaroxaban and Apix aban will interfere with the anti Xa assay used to monitor UFH and LMWH. Blood Venous blood specimen / Unknown Arterial Line / Unknown 06/30/2024 8:51 AM EDT 06/30/2024 9:23 AM EDT Osvaldo Gant MD LAB BLOOD ORDERABLES [facility] ([facility]) [address] [place] [address] * ECG 12 lead (06/30/2024 6:40 AM EDT) Ventricular Rate 96 BPM GE MUSE Atrial Rate 96 BPM GE MUSE WV Interval 160 ms GE MUSE QRS DURATION 84 ms GE MUSE QT Interval 380 ms GE MUSE QTC CALCULATION(BAZE TT) 480 ms GE MUSE P [place] -7 degrees GE MUSE R-[place] 18 degrees GE MUSE T Wave [place] 20 degrees GE MUSE 06/30/2024 12:0 7 [...] 7:14:44 AM López Calderon MD ECG ORDERABLES GE MYESHA * (ABNORMAL) Urinalysis with reflex culture (06/30/2024 4:43 AM EDT) Color, Urine Colorless Colorless, Yellow, Light-Yellow 06/30/2024 5:44 AM EDT [facility] ([facility]) Clarity, Urine Clear Clear 06/30/2024 5:44 AM EDT [facility] ([facility]) pH, Urine 6.0 5.0 - 8.0 pH 06/30/2024 5:44 AM EDT [facility] ([facility]) Leukocytes, Urine Negative Negative 06/30/2024 5:44 AM EDT [facility] ([facility]) Nitrite, Urine Negative Negative 06/30/2024 5:44 AM EDT [facility] ([facility]) Protein, Urine Negative Negative mg/dL 06/30/2024 5:44 AM EDT [facility] ([facility]) Glucose, Urine Normal Normal mg/dL 06/30/2024 5:44 AM EDT [facility] ([facility]) Bilirubin, Urine Negative Negative 06/30/2024 5:44 AM EDT [facility] ([facility]) Specific [place], Urine 1.009(L) 1.010 - 1.030 06/30/2024 5:44 AM EDT [facility] ([facility]) Ketones, Urine Negative Negative mg/dL 06/30/2024 5:44 AM EDT [facility] ([facility]) Blood, Urine Negative Negative 06/30/2024 5:44 AM EDT [facility] ([facility]) Urobilinogen, Urine Normal Normal mg/dL 06/30/2024 5:44 AM EDT [facility] ([facility]) Urine Urine specimen obtained by clean catch procedure / Unknown Non-blood Collection / Unknown 06/30/2024 4:43 AM EDT 06/30/2024 4:53 AM EDT Narrative [facility] ([facility]) - 06/30/2024 5:44 AM EDT Microscopics not performed on urines with negative chemical reactions unless requested on original order. López Calderon MD LAB URINE ORDERABLES [facility] ([facility]) [address] [place], [place] [id number] * Lactic acid with 4 hour reflex (06/29/2024 10:19 PM EDT) Lactate 1.6 0.5 - 2.2 mmol/L 06/29/2024 11:00 PM EDT [facility] ([facility]) Blood Venous blood specimen / Unknown Venipuncture / Unknown 06/29/2024 10:19 PM EDT 06/29/2024 10:22 PM EDT López Calderon MD LAB BLOOD ORDERABLES [facility]) [address] [place] [address] * XR chest 1 view (06/29/2024 10:18 PM EDT) Anatomical Region Laterality Modality Chest Computed Radiogr aphy 06/29/2024 10:2 8 PM EDT Impressions 06/29/2024 10:34 PM EDT * Cardiomegaly with mild pulmonary vascular congestion. * Right basilar opacity may represent atelectasis versus pneumonia. Approved by:Connie Huff06/29/2024 10:30 PM. ILogan,have reviewed the image(s) and agree with the [...] Troponin I (06/29/2024 10:14 PM EDT) [facility] High Sensitivity Troponin I 9 <15 ng/L 06/29/2024 10:51 PM EDT [facility] ([facility]) Blood Venous blood specimen / Unknown Venipuncture / Unknown 06/29/2024 10:14 PM EDT 06/29/2024 10:19 PM EDT López Calderon MD LAB BLOOD ORDERABLES [facility] ([facility]) [address] [place] [address] * (ABNORMAL) CBC auto differential (06/29/2024 10:14 PM EDT) [facility] Auto WBC 8.63 4.00 - 10.60 10*3/uL 06/29/2024 10:44 PM EDT [facility] ([facility]) RBC 3.55(L) 3.80 - 5.00 10*6/uL 06/29/2024 10:44 PM EDT [facility] ([facility]) Hemoglobin 12.3 12.0 - 15.0 g/dL 06/29/2024 10:44 PM EDT [facility] ([facility]) Hematocrit 37.9 36.0 - 45.0 % 06/29/2024 10:44 PM EDT [facility] ([facility]) MCV 106.8(H) 82.0 - 98.0 fL 06/29/2024 10:44 PM EDT [facility] ([facility]) MCH 34.6(H) 27.0 - 33.0 pg 06/29/2024 10:44 PM EDT [facility] ([facility]) MCHC 32.5 32.0 - 35.0 g/dL 06/29/2024 10:44 PM T [facility] ([facility]) RDW 15.3(H) 11.5 - 15.0 % 06/29/2024 10:44 PM T [facility] ([facility]) Neutrophils % 69.0 40.0 - 72.0 % 06/29/2024 10:44 PM T [facility] ([facility]) Lymphocytes % 18.9(L) 20.0 - 45.0 % 06/29/2024 10:44 PM T [facility] ([facility]) Monocytes % 8.7 5.0 - 12.0 % 06/29/2024 10:44 PM T [facility] ([facility]) Eosinophils % 2.5 0.0 - 6.0 % 06/29/2024 10:44 PM EDT [facility] ([facility]) Basophils % 0.6 0.0 - 1.0 % 06/29/2024 10:44 PM T [facility] ([facility]) Neutrophils Absolute 5.95 1.60 - 7.60 10*3/uL 06/29/2024 10:44 PM EDT [facility] ([facility]) Lymphocytes Absolute 1.63 1.20 - 4.00 10*3/uL 06/29/2024 10:44 PM EDT [facility] ([facility]) Monocytes Absolute 0.75 0.10 - 1.00 10*3/uL 06/29/2024 10:44 PM EDT [facility] ([facility]) Eosinophils Absolute 0.22 0.00 - 0.50 10*3/uL 06/29/2024 10:44 PM EDT [facility] ([facility]) Basophils Absolute 0.05 0.00 - 0.20 10*3/uL 06/29/2024 10:44 PM EDT [facility] ([facility]) Platelets 289 150 - 400 10*3/uL 06/29/2024 10:44 PM EDT [facility] ([facility]) nRBC % 0.0 0 % 06/29/2024 10:44 PM EDT [facility]) Immature Granulocytes % 0.3 0.0 - 1.0 % 06/29/2024 10:44 PM EDT [facility] ([facility]) Immature Granulocytes Absolute 0.03 0.00 - 0.20 10*3/uL 06/29/2024 10:44 PM EDT [facility] ([facility]) Blood Venous blood specimen / Unknown Venipuncture / Unknown 06/29/2024 10:14 PM EDT 06/29/2024 10:20 PM EDT López Calderon MD LAB BLOOD ORDERABLES [facility]) [address] [place] [address] * APTT (06/29/2024 10:14 PM EDT) aPTT 34.7 25.0 - 35.0 Seconds 06/29/2024 11:27 PM EDT [facility]) Comment:Clinical significanc e of the APTT is questionable in the presence of heparin. Blood Venous blood specimen / Unknown Venipuncture / Unknown 06/29/2024 10:14 PM EDT 06/29/2024 10:19 PM EDT López Calderon MD LAB BLOOD ORDERABLES Performing Organization Address City/[facility]/ZIP Co de Phone Number [facility] ([facility]) [address] [place], [place] [id number] * Protime-INR (06/29/2024 10:14 PM EDT) Protime 13.4 12.3 - 14.8 Seconds 06/29/2024 11:27 PM EDT [facility] ([facility]) INR 1.02 0.90 - 1.10 06/29/2024 11:27 PM EDT [facility] ([facility]) Comment: [facility] RECOMMENDED INR FOR WARFARIN [...] Calderon MD LAB BLOOD ORDERABLES [facility] ([facility]) [address] [place], [place] [id number] * B-type natriuretic peptide (06/29/2024 10:14 PM EDT) BNP 49 0 - 100 pg/mL 06/29/2024 10:49 PM EDT [facility] ([facility]) Blood Venous blood specimen / Unknown Venipuncture / Unknown 06/29/2024 10:14 PM EDT 06/29/2024 10:20 PM EDT López Calderon MD LAB BLOOD ORDERABLES [facility] ([facility]) [address] [place] [address] from Last 3 Months Advance Directives * Full Code (Latest Code Status on File) Date Activated Date Inactivated Comments 06/30/2024 7:48 AM 07/07/2024 4:19 PM Care Teams Certified Medicine Aide Relationship Specialty Start Date End Date Yessenia Garcia MD [address] [place] [address] PCP - General Internal Medicine 06/29/24
--- OUTSIDE RECORDS SUMMARY | 2024-09-20 11:06 | XMS_ITS | Encounter Summary ---
Author Organization [facility] Address [address] [facility] [address] Care Team Providers Care Financial Reporting Advisor Name Role Phone Salas Massey MD Primary Care Provider Salas Massey MD Unavailable [phone] Jignesh Dinh MD Unavailable Eliot Rider DO Unavailable [phone] Salas Massey MD Unavailable [phone] Marixa Sampson RN Unavailable Unavailable Encounter Details Date Type Department Care Team (Late st Contact Info) Description 01/28/2023 Orders Only [facility] [address] [place] [address] A, Unknown Practice [address] [place] [id number] Social History Tobacco Use Types Packs/Day Years [...] 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, 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, [place]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 documented as of this encounter Plan of Treatment Upcoming Encounters Date Type Department Care Team (Late st Contact Info) Description 09/21/2024 2:30 PM EDT Office Visit [facility] [address] [place] [phone] 10/24/2024 2:30 PM EDT Clinical Support [facility] [address] [place] [address] Dov Gonzalez RN documented as of this encounter Procedures Procedure Name Priority Date/Time Associated Diagnosis Comments FL ESOPHAGUS & UGI Routine 01/28/2023 2:41 PM EDT documented in this encounter Results * FL ESOPHAGUS & UGI (01/28/2023 2:41 PM EDT) Anatomical Region Laterality Modality Radiographic Nancy ging us Unknown Practice A IMG XR PROCEDURES Final Resul t documented in this encounter Visit Diagnoses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documented in this encounter Care Teams Financial Reporting Advisor Relationship Specialty Start Date End Date Salas Massey MD [address] [place] [address] PCP - General Internal Medicine 10/20/22 Salas Massey MD [address] [place] [address] PCP - Devoted 12/12/22 07/12/23 Salas Massey MD [address] [place] [address] PCP - Devoted 04/13/24 Jignesh Dinh MD [address] [place] [address] Referring Physician Neurology 04/15/23 Eliot Rider DO [address] [place] [place] [address] Referring Physician Orthopaedic Surgery 07/07/23 Marixa Sampson, ASHWIN Registered Nurse Family Medicine 06/23/24 documented as of this encounter
--- OUTSIDE RECORDS SUMMARY | 2024-09-20 11:06 | XMS_ITS | Encounter Summary ---
Author Organization [facility] Address [address] [place] [address] Care Team Providers Care Stationary Steam Engineer Name Role Phone aSlas Massey MD Primary Care Provider [phone] Jignesh Dinh MD Unavailable Eliot Rider DO Unavailable [phone] Salas Massey MD Unavailable [phone] Marixa Sampson RN Unavailable Unavailable Encounter Details Date Type Department Care Team (Latest Contact Info) Description 09/12/2024 Travel Social History Tobacco Use Types Packs/Day Years [...] How often do you attend chur or baptism services? Patient declined 08/13/2024 Do you belong to any clubs o r organizations such as catholic groups, unions, fraternal or athletic groups, or [...] Recorded Patient Health Questionnaire-2 Score 0 04/28/2023 [facility]at ional Health - [...] any time in the past 12 m [facility], were you homeless or living in a care home (including now)? 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, [place]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 documented as of this encounter Plan of Treatment Upcoming Encounters Date Type Department Care Team (Late st Contact Info) Description 09/21/2024 2:30 PM EDT Office Visit [facility] [address] [place] [phone] 10/24/2024 2:30 PM EDT Clinical Support [facility] [address] [place] [address] Alt, Dov, RN documented as of this encounter Visit Diagnoses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documented in this encounter Care Teams Stationary Steam Engineer Relationship Specialty Start Date End Date Salas Massey MD [address] [place] [address] PCP - General Internal Medicine 10/20/22 Salas Massey MD [address] [place] [address] PCP - Devoted 04/13/24 Jignesh Dinh MD [address] [place] [address] Referring Physician Neurology 04/15/23 Eliot Rider DO [address] [place] [address] [place] [address] Referring Physician Orthopaedic Surgery 07/07/23 Marixa Sampson, ASHWIN Registered Nurse Family Medicine 06/23/24 documented as of this encounter
--- OUTSIDE RECORDS SUMMARY | 2024-09-20 11:06 | XMS_ITS | Encounter Summary ---
Author Organization [facility] Address [address] [place] [address] Care Team Providers Care Lathe Spotter Name Role Phone Salas Massey MD Primary Care Provider Jignesh Dinh MD Unavailable Eliot Rider DO Unavailable [phone] Salas Massey MD Unavailable [phone] Marixa Sampson RN Unavailable Unavailable Encounter Details Date Type Department Care Team (Late st Contact Info) Description 09/07/2024 Telephone [facility] [address] [place] [id number] Rosalinda Laguerre, FLAGGER [address] [place] [address] Social History Tobacco Use Types Packs/Day Years [...] often do you attend chur ch or adventist services? Patient declined 08/13/2024 Do you belong to any clubs o r organizations such as rastafarian groups, unions, fraternal or athletic groups, or [...] Recorded Patient Health Questionnaire-2 Score 0 04/28/2023 [facility] [place] [facility] Occupat ional Health - Occupational Stress [...] time in the past [address] [facility], were you homeless or living in a halfway (including now)? 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 Dinh response * Telephone Encounter - Jignesh Dinh MD - 09/07/2024 4:31 PM EDT Absolutely we are going to start Donepezil 5 mg at bed * Telephone Encounter - Rosalinda Laguerre NP - 09/07/2024 3:02 PM EDT Sister leaves voicemail that patient has a virtual appointment with Allegra on Thursday. She will be oncall Thursday. Family want Dr. Dinh to know that patient memory has been off and on, short term memory loss. Family wants to know if any type of medication Oksana could take to maintain memory that shestill does have. documented in this encounter Plan of Treatment Upcoming Encounters Date Type Department Care Team (Late st Contact Info) Description 09/21/2024 2:30 PM EDT Office Visit [facility] [address] [place] [address] 10/24/2024 2:30 PM EDT Clinical Support [facility] [address] [place] [address] Dov Gonzalez RN documented as of this encounter Visit Diagnoses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documented in this encounter Care Teams Lathe Spotter Relationship Specialty Start Date End Date Salas Massey MD [address] [place] [address] PCP - General Internal Medicine 10/20/22 Salas Massey MD [address] [place] [address] PCP - Devoted 04/13/24 Jignesh Dinh MD [address] [facility] [address] [place] [address] Referring Physician Neurology 04/15/23 Eliot Rider DO [address] [place], [place] [address] [place] [address] Referring Physician Orthopaedic Surgery 07/07/23 Marixa Sampson, RN Registered Nurse Family Medicine 06/23/24 documented as of this encounter
--- OUTSIDE RECORDS SUMMARY | 2024-09-20 11:06 | XMS_ITS | Encounter Summary ---
Author Organization [facility] Address [address] [place] [address] Care Team Providers Care Manager Research Development Name Role Phone Salas Massey MD Primary Care Provider [phone] Jignesh Dinh MD Unavailable [phone] Eliot Rider DO Unavailable [phone] Salas Massey MD Unavailable [phone] Marixa Sampson RN Unavailable Unavailable Encounter Details Date Type Department Care Team (Latest Contact Info) Description 09/19/2024 Travel Social History Tobacco Use Types Packs/Day [...] How often do you attend chur or anglican services? Patient declined 08/13/2024 Do you belong to any clubs o r organizations such as mormonism groups, unions, fraternal or athletic groups, or [...] Recorded Patient Health Questionnaire-2 Score 3 09/14/2024 [facility] Occupat ional Health - [...] any time in the past 12 m [facility], were you homeless or living in a senior care (including now)? 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, [place]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 documented as of this encounter Plan of Treatment Upcoming Encounters Date Type Department Care Team (Late st Contact Info) Description 09/21/2024 2:30 PM EDT Office Visit [facility] [address] [place] [phone] 10/24/2024 2:30 PM EDT Clinical Support [facility] [address] [place] [address] Alt, Dov, RN documented as of this encounter Visit Diagnoses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documented in this encounter Care Teams Manager Research Development Relationship Specialty Start Date End Date Salas Massey MD [address] [place] [address] PCP - General Internal Medicine 10/20/22 Salas Massey MD [address] [place] [address] PCP - Devoted 04/13/24 Jignesh Dinh MD [address] [place] [address] Referring Physician Neurology 04/15/23 lEiot Rider DO [address] [place] [address] [place] [address] Referring Physician Orthopaedic Surgery 07/07/23 Marixa Sampson, ASHWIN Registered Nurse Family Medicine 06/23/24 documented as of this encounter
--- OUTSIDE RECORDS SUMMARY | 2024-09-20 11:06 | XMS_ITS | Clinical Summary ---
Author Organization [facility] Address [address] [place] [address] Care Team Providers Care Stretcher Leveler Operator Name Role Phone Salas Massey MD Primary Care Provider Jignesh Dinh MD Unavailable [phone] Eliot Rider DO Unavailable [phone] Salas Massey MD Unavailable [phone] Marixa Sampson RN Unavailable Unavailable Allergies Active Allergy Reactions Criticality Noted Date Comments Sulfa Antibiotics Other Low 10/15/2022 Medications Cholecalciferol (Vitamin D) 125 MCG (5000 UT) capsule Take 1 capsule by mouth 1 (one) time each day Active Doxylamine Succinate, Sleep, (UNISOM SLEEPTABS PO) Take 1 tablet by mouth as needed at bedtime. Active rosuvastatin (Crestor) 10 MG tabletIndications:Pure hypercholesterolemia (CMS/HCC) Take 1 tablet (10 mg) by mouth at bedtime 90 tablet 3 024 Active levothyroxine (Synthroid, Levoxyl) 100 MCG tabletIndications:Acqui red hypothyroidism (CMS/HCC) TAKE 1 TABLET BY MOUTH IN THE MORNING BEFORE MEAL(S) 90 tablet 2 Active potassium chloride CR (Klor-Con M10) 10 MEQ ER tablet Take 10 mEq by mouth in the morning and 10 mEq before bedtime. Do not crush or chew.. Active ALPRAZolam (Xanax) 0.25 MG tabletIndications:Gener alized anxiety disorder (CMS/HCC) Take 1 tablet (0.25 mg) by mouth 2 (two) times a day as needed for anxiety 60 tablet 2 Active Cyanocobalamin 1000 MCG capsuleIndications:Type 2 diabetes mellitus with diabetic neuropathy, without long-term current use of insulin (CMS/HCC) Take 1 capsule by mouth 1 (one) time each day at the same time 90 capsule 3 Active metoprolol succinate XL (Toprol-XL) 25 MG 24 hr tabletIndications:Essen tial hypertension (CMS/HCC) Take 3 tablets (75 mg) by mouth in the morning. 90 tablet 11 025 2025 Active escitalopram (Lexapro) 10 MG tabletIndications:Gener alized anxiety disorder (CMS/HCC) Take 1 tablet (10 mg) by mouth Daily 90 tablet 2 Active amitriptyline (Elavil) 50 MG tabletIndications:Gener alized anxiety disorder (CMS/HCC) TAKE 1 TABLET BY MOUTH AT BEDTIME 90 tablet 3 Active gabapentin (Neurontin) 300 MG capsuleIndications:Idio pathic progressive neuropathy Take 1 capsule (300 mg) by mouth at bedtime for 7 days 7 capsule Active Additional Information Patient not taking.Reason: weaned off, Reported on 09/16/2024 ammonium lactate (Amlactin) 12 % cream Apply 1 application topically in the morning and 1 application in the evening and 1 application before bedtime. Active bumetanide (Bumex) 1 MG tablet Take by mouth in the morning and before bedtime. Active spironolactone (Aldactone) 25 MG tablet Take 25 mg by mouth Active donepezil (Aricept) 5 MG tabletIndications:MCI (mild cognitive impairment) with memory loss Take 1 tablet (5 mg) by mouth at bedtime 30 tablet 11 025 2024 Active tamsulosin (Flomax) 0.4 MG 24 hr capsule Take 0.4 mg by mouth in the morning. 025 Active traMADol (Ultram) 50 MG tabletIndications:Polyn europathy associated with underlying disease (CMS/HCC) Take 1-2 tablets (50-100 mg) by mouth every 6 (six) hours if needed for severe pain 120 tablet 025 Active traMADol (Ultram) 50 MG tabletIndications:Polyn europathy associated with underlying disease (CMS/HCC) Take 1-2 tablets (50-100 mg) by mouth every 6 (six) hours if needed for severe pain 120 tablet 025 2024 Disconti nued(Reo rder) Active Problems Problem Noted Date Diagnosed Date Type 2 diabetes mellitus wit h diabetic chronic kidney disease 06/28/2024 Primary osteoarthritis involving multiple joints 11/04/2023 Polyneuropathy associated with underlying diseas e 07/27/2023 Type 2 diabetes mellitus wit h diabetic neuropathy, without long-term current use of insulin 04/28/2023 Obstructive hypertrophic cardiomyopathy 01/13/20 Obsessive-compulsive disorder 01/09/2023 MCI (mild cognitive impairment) with memory loss 12/03/2022 Gastroesophageal reflux disease without esophagi tis 10/15/2022 Generalized anxiety disorder 10/15/2022 Pure hypercholesterolemia 10/15/2022 Acquired hypothyroidism 10/15/2022 Primary insomnia 10/15/2022 Morbid obesity 10/15/2022 Nonalcoholic fatty liver disease 10/15/2022 Obstructive sleep apnea syndrome 10/15/2022 Stage 3a chronic kidney disease (HCC) 10/15/2022 Vitamin D deficiency 10/15/2022 Essential hypertension 03/05/2022 Lymphedema of both lower extremities 03/05/2022 Repeated falls 03/04/2022 Resolved Problems Problem Noted Date Diagnosed Date Resolved Date Lymphedema of right lower extremity 07/13/2024 07/13/2024 Dizziness 01/09/2023 01/20/2023 Vision changes 01/09/2023 01/20/2023 Impaired glucose tolerance 11/25/2022 1 Anxiety 11/25/2022 01/20/2023 Amnesia 10/15/2022 10/17/2022 Benign neoplasm of colon 10/15/202210/2022 Carpal tunnel syndrome 10/15/202210/17 Cholelithiasis 10/15/2022 10/17/2022 Chronic venous insufficiency 10/15/2022 10/17/2022 Constipation 10/15/2022 10/17/2022 H/O: hysterectomy 10/15/2022 10/17/2022 History of left knee replacement 10/15/2022 10/17/2022 Nuclear senile cataract 10/15/2022 07/0 10/2022 Osteoarthritis of left glenohumeral joint 10/15/2022 10/17/2022 Post menopausal syndrome 10/15/202210/2022 Prediabetes 10/15/2022 03/02/2024 Preglaucoma, unspecified, bilateral 10/15/2022 10/17/2022 Osteoarthritis of knee 10/15/202210/17 Age-related physical debility 03/05/2022 01/20/2023 Other abnormalities of gait and mobility 03/05/2022 01/20/2023 Type 2 diabetes mellitus wit hout complications 06/09/2019 04/28/2023 Degenerative disease of nerv ous system, unspecified 01/20/2023 Encounters Date Type Department Care Team Description 09/19/2024 2:30 PM EDT Clinical Support [facility] [address] [place] [phone] Dov Gonzalez RN Type 2 diabetes mellitus without complication, without long-term current use of insulin (Primary Dx); Essential hypertension ([facility]/HCC) 09/19/2024 Bamboo flowsheet [facility] [address] [place] [address] Dov Gonzalez RN 09/19/2024 Travel 09/16/2024 Patient Outreach [facility] [address] [place] [address] Marixa Sampson RN 09/15/2024 External Result Encounter [facility] External Department Unsolicited Salas Massey MD 09/14/2024 Travel 09/12/2024 Travel 09/09/2024 1:00 PM EDT Telemedicine [facility] [address] [place] [phone] Jignesh Dinh MD MCI (mild cognitive impairment) with memory loss (Primary Dx) 09/07/[address] [facility] [address] [facility] [address] [place] [address] Rosalinda Laguerre NP 09/02/2024 Travel 08/22/2024 12:20 PM EDT Office Visit [facility] [address] [place] [phone] Jesusita Cazares NP Mild cognitive impairment with memory loss (Primary Dx) 08/22/2024 Bamboo flowsheet [facility] [address] [place] [address] Jesusita Cazares NP 08/22/2024 Travel 08/17/2024 Orders Only [facility] [address] [place] [phone] Salas Massey MD 08/16/2024 Patient Outreach [facility] [address] [place] [address] Marixa Sampson RN 08/15/2024 3:00 PM EDT Clinical Support [facility] [address] [place] [address] Dov Gonzalez RN Type 2 diabetes mellitus with diabetic neuropathy, without long-term current use of insulin (CMS/[facility]) (Primary Dx); Morbid obesity (CMS/HCC) 08/15/2024 Bamboo flowsheet [facility] [address] [place] [phone] Dov Gonzalez RN 08/15/2024 Travel 08/13/2024 Travel 08/08/2024 Patient Outreach [facility] [address] [place] [address] Marixa Sampson RN 08/03/2024 Travel 07/29/2024 Refill [facility] [address] [place] [address] Salas Massey MD Generalized anxiety disorder (CMS/HCC) 07/26/2024 Patient Outreach [facility] [address] [place] [address] Marixa Sampson RN 07/22/2024 Patient Outreach [facility] [address] [place] [address] Marixa Sampson RN 07/21/2024 10:45 AM EDT Office Visit [facility] [address] [place] [address] Kehinde Silvestre NP Generalized anxiety disorder (CMS/HCC) (Primary Dx); Hospital discharge follow-up; Obstructive hypertrophic cardiomyopathy (CMS/HCC); Lymphedema of both lower extremities; Acquired hypothyroidism (CMS/HCC); Essential hypertension (CMS/HCC); Obstructive sleep apnea syndrome; Primary insomnia; Type 2 diabetes mellitus with stage 3b chronic kidney disease, without long-term current use of insulin (HCC) (CMS/HCC) 07/21/2024 Abstract [facility] [address] [place] [address] Salas Massey MD 07/21/2024 Travel 07/20/2024 Patient Outreach [facility] [address] [place] [address] Marixa Sampson RN 07/18/2024 Travel 07/18/2024 Telephone [facility] [address] [place] [address] Orquidea Godinez LPN 07/18/2024 Patient Outreach [facility] [address] [place] [address] Marixa Sampson RN 07/14/2024 Patient Outreach [facility] [address] [place] [address] Marixa Sampson RN 07/12/2024 Orders Only [facility] [address] [place] [address] Marixa Sampson, ASHWIN 07/11/2024 Travel 07/08/2024 Patient Outreach [place] [address] [place] [address] Marixa Sampson RN 07/04/2024 Patient Outreach [place] [address] [place] [address] Marixa Sampson RN 06/30/2024 Orders Only [facility] [address] [place] [address] Unallocated, Padmaja Linton MD 06/29/2024 2:30 PM EDT Office Visit [facility] [address] [place] [phone] Delisa Davidson, MECHANICAL ASSEMBLER Bilateral lower extremity edema (Primary Dx); Hypokalemia; Lymphedema, not elsewhere classified; Type 2 diabetes mellitus with stage 3b chronic kidney disease, without long-term current use of insulin (HCC) ([facility]/HCC); Chronic kidney disease, stage 3b (HCC) ([facility]/HCC); Other secondary pulmonary hypertension (CMS/HCC); SOB (shortness of breath); Unable to care for self; Polyneuropathy associated with underlying disease (CMS/HCC) 06/29/2024 Travel 06/24/2024 Refill [facility] [address] [place] [phone] Ellen Mccullough LPN Type 2 diabetes mellitus with diabetic neuropathy, without long-term current use of insulin ([facility]/HCC) 06/24/2024 Patient Outreach [place] [address] [place] [address] Marixa Sampson, ASHWIN 06/23/2024 Travel 06/22/2024 Orders Only [facility] [address] [place] [phone] Ellen Mccullough LPN Lymphedema, not elsewhere classified 06/22/2024 Patient Outreach [place] [address] [place] [phone] Marixa Sampson RN 06/21/2024 Telephone [facility] [address] [place] [address] Ernie Flores MA Leg Swelling 06/20/2024 Telephone [facility] [address] [place] [address] Valeria Massey MA Leg Swelling from Last 3 Months Immunizations Immunization Administration Dates Next Due Influenza, High Dose Seasona l, Preservative Free 02/05/2021,03/17/2018,02/26/2016,12/28 Influenza, Seasonal, Quadriv alent, Adjuvanted 04/28/2023 Influenza, injectable, quadr ivalent, preservative free 02/06/2017 Influenza, trivalent, adjuvanted 025,01/05/2020,12/29/2018,12/28 Moderna SARS-CoV-2 Vaccination 03/18/2021,2020,07/13/2020 PPD Test 11/09/2015, 6,07/06/2014,06/29 Pneumococcal Conjugate PCV 13 03/01/2015 Pneumococcal Polysaccharide PPSV23 12/28/2013 Zoster, Recombinant 01/31/2019 Zoster, live 04/14/2011 Family History Medical History Relation Name Comments Arthritis Brother 1 Tang Montello Arthritis Brother 2 Nahum Leg Man Arthritis Brother 3 Darian [place] Arthritis Father Rambo Castaneda Leg Man Diabetes Maternal Grandmother Selma Hypertension Mother Stefany Leg Man Arthritis Sister Betsy Leg Man Relation Name Status Comments Brother 1 Tang Leg Man Alive 3 Brother 2 Nahum Montello Brother 3 Darian Montello Father Rambo A. Leg Man Maternal Grandmother Selma Mother Stefany Leg Man Sister Betsy Montello Alive 2 Social History Tobacco Use Types Packs/Day Years Used Date Smoking Tobacco: Former Cigarettes Q uit: 04/13/1998 Smokeless Tobacco: Never Tobacco Cessation:Counseling Given: Not Answered Comments:10-19 cigarettes/day Alcohol Use Standard Drinks/Week Comments Not Currently [...] declined 08/13/2024 How often do you attend [facility] or episcopal services? Patient declined 08/13/2024 Do you belong [...] Recorded Patient Health Questionnaire-2 Score 3 09/14/2024 [facility] - Occupational Stress Questionnaire Answer Date Recorded [...] any time in the past 12 m [facility], were you homeless or living in a [facility] (including now)? 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, [employer]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 Last Filed Vital Signs Vital Sign Reading Time Taken Comments Blood Pressure 150/94 08/22/2024 12:41 PM EDT Pulse 64 07/21/2024 10:25 AM EDT Temperature 36.3 C (97.4 F) 04/04/2024 10:26 AM EST Respiratory Rate 16 03/01/2024 3:13 PM EST Oxygen Saturation 99% 07/21/2024 10:25 AM EDT Inhaled Oxygen Concentration - - Weight 122 kg (270 lb) 08/22/2024 12:41 PM EDT Height 154.9 cm (5' 1 ) 08/22/2024 12:41 PM EDT Body Mass Index 51.02 08/22/2024 12:41 PM EDT Plan of Treatment Upcoming Encounters Date Type Department Care Team (Late st Contact Info) Description 09/21/2024 2:30 PM EDT Office Visit [facility] [address] [place] [address] 10/24/2024 2:30 PM EDT Clinical Support [facility] [address] [facility] [address] [place] [address] Dov Gonzalez, RN Health Maintenance Due Date Last Done Comments Diabetes: Retinopathy Screening 05/24/2023 Diabetes: Hemoglobin A1C 10/01/2024 025, 07/01/2024, 06/10/2024, Additional history exists Diabetes: Urine Protein Screening 12/22/2024 12/23/2023, 02/12/2023, 07/16/2020 Pneumococcal Vaccine: 65+ Years Completed 5, 12/28/2013 Colonoscopy Discontinued 02/21/2016, 01/20/2014 Colorectal Cancer Screening Discontinued Mammogram Discontinued 07/31/2023, 05/14, 05/22/2020, Additional history exists Influenza Vaccine Completed 05/19/2024, , 02/05/2021, Additional history exists CT Colonography Discontinued FIT-DNA Discontinued FIT Discontinued FOBT Discontinued Sigmoidoscopy Discontinued Procedures Procedure Name Priority Date/Time Associated Diagnosis Comments CBC WITH AUTO DIFFERENTIAL Routine 09/15/2024 12:55 PM EDT URINALYSIS, COMPLETE Routine 06/20/2024 11:20 AM EDT CBC WITH AUTO DIFFERENTIAL Routine 06/20/2024 11:20 AM EDT COMPREHENSIVE METABOLIC PANEL Routine 06/20/2024 11:20 AM EDT B-TYPE NATRIURETIC PEPTIDE Routine 06/20/2024 11:20 AM EDT CREATINE KINASE, TOTAL Routine 06/20/2024 11:20 AM EDT TROPONIN T, HIGH SENSITIVITY Routine 06/20/2024 11:20 AM EDT MAGNESIUM Routine 06/20/2024 11:20 AM EDT XR CHEST 2 VIEWS Routine 06/20/2024 11:1 7 AM EDT RHYTHM ECG, REPORT Routine 06/20/2024 11 :15 AM EDT HEMOGLOBIN A1C WITH EAG Routine 06/10/2024 11:03 AM EST Essential hypertension (CMS/HCC) Type 2 diabetes mellitus with diabetic neuropathy, without long-term current use of insulin (CMS/HCC) MICROALBUMIN / CREATININE URINE RATIO Routine 12/23/2023 12:00 PM EDT Essential hypertension (CMS/HCC) BI MAMMOGRAM SCREENING TOMOSYNTHESIS BILATERAL Routine 07/31/2023 3:20 PM EDT Encounter for screening mammogram for malignant neoplasm of breast COLOR FUNDUS PHOTOGRAPHY - OU - BOTH EYES Routine 05/24/2021 12:00 PM EST COLONOSCOPY Routine 02/21/2016 12:00 PM EST from Last 3 Months or Most Recently Relevant to Health Maintenance Results * (ABNORMAL) CBC auto differential (09/15/2024 12:55 PM EDT) Only the most recent of2 resultswithin the time period is included. WBC 7.9 3.8 - 11.6 10*3/uL 09/15/2024 5:00 PM EDT [facility] UNCORRECTED WHITE BLOOD COUNT 7.9 3.8 - 11.6 10*3/uL 09/15/2024 5:00 PM EDT [facility] RBC 3.35(L) 3.60 - 5.00 10*6/uL 09/15/2024 5:00 PM EDT [facility] HEMOGLOBIN 11.6(L) 11.8 - 15.4 g/dL 09/15/2024 5:00 PM EDT [facility] HEMATOCRIT 34.3 34.0 - 46.4 % 09/15/2024 5:00 PM EDT [facility] MCV 102.6(H) 80 - 100 fL 09/15/2024 5:00 PM EDT [facility] MCH 34.6(H) 24.7 - 34.3 pg 09/15/2024 5:00 PM EDT [facility] MCHC 33.7 32.0 - 35.0 g/dL 09/15/2024 5:00 PM EDT [facility] RED CELL DISTRIBUTION WIDTH, RDW 14.8 11.9 - 15.3 % 09/15/2024 5:00 PM EDT [facility] PLATELET COUNT 298 150 - 450 10*3/uL 09/15/2024 5:00 PM EDT [facility] MEAN PLATELET VOLUME, MPV 7.5 6.3 - 10.7 fL 09/15/2024 5:00 PM EDT [facility] NEUTROPHILS, % 67.2 . % 09/15/2024 5:00 PM EDT [facility] LYMPHOCYTES, % 20.2 . % 09/15/2024 5:00 PM EDT [facility] MONOCYTE/MACROPHA GE, % 8.7 . % 09/15/2024 5:00 PM EDT [facility] EOSINOPHILS, % 3.0 . % 09/15/2024 5:00 PM EDT [facility] BASOPHILS, % 0.9 . % 09/15/2024 5:00 PM EDT [facility] NRBC 0.1 0 - 0.5 /100{WBC} 09/15/2024 5:00 PM EDT [facility] NEUTROPHILS 5.3 1.8 - 7.7 10*3/uL 09/15/2024 5:00 PM EDT [facility] LYMPHOCYTES 1.6 1.00 - 4.8 10*3/uL 09/15/2024 5:00 PM EDT [facility] MONOCYTES 0.7 0.0 - 0.8 10*3/uL 09/15/2024 5:00 PM EDT [facility] EOSINOPHILS 0.2 0.0 - 0.45 10*3/uL 09/15/2024 5:00 PM EDT [facility] BASOPHILS 0.1 0.0 - 0.2 10*3/uL 09/15/2024 5:00 PM EDT [facility] Blood (Blood) 09/15/2024 12: 55 PM EDT 09/15/2024 4:46 PM EDT Salas Massey MD LAB BLOOD ORDERABLES Final Resu lt [facility] [address] [place] [address], [facility] [address] [place] [address] * TROPONIN T, HIGH SENSITIVITY (06/20/2024 11:20 AM EDT) [facility] Provider Unallocated MD LAB BLOOD ORDERABLE S Final Result * Urinalysis with microscopic (06/20/2024 11:20 AM EDT) Urine Urine specimen obtained by clean catch procedure / Unknown [facility]oms Provider Unallocated MD LAB URINE ORDERABLE S Final Result * B-type natriuretic peptide (06/20/2024 11:20 AM EDT) Blood Venous blood specimen / Unknown [facility] Provider Unallocated MD LAB BLOOD ORDERABLE S Final Result * Magnesium (06/20/2024 11:20 AM EDT) Blood Venous blood specimen / Unknown [facility]oms Provider Unallocated MD LAB BLOOD ORDERABLE S Final Result * CK (06/20/2024 11:20 AM EDT) Blood Venous blood specimen / Unknown us [facility]oms Provider Unallocated MD LAB BLOOD ORDERABLE S Final Result * Comprehensive metabolic panel (06/20/2024 11:20 AM EDT) Blood Venous blood specimen / Unknown [facility]oms Provider Unallocated MD LAB BLOOD ORDERABLE S Final Result * XR chest 2 views (06/20/2024 11:17 AM EDT) Anatomical Region Laterality Modality Chest Radiographic Nancy ging Noms Provider Unallocated MD IMG XR PROCEDURES F inal Result * ECG 3 Lead (06/20/2024 11:15 AM EDT) Noms Provider Unallocated MD IN CLINIC/BEDSIDE O RDERABLES Final Result * Microalbumin / creatinine urine ratio (12/23/2023 12:00 PM EDT) Creat Ur 118.4 Not Estab. mg/dL [facility] Albumin Ur 7.6 Not Estab. ug/mL [facility] Alb/Creat Ratio Urine 6 0 - 29 mg/g creat [facility] Comment: Normal: 0 - 29 Moderately increased: 30 - 300 Severely increased: >300 Urine Urine specimen obtained by clean catch procedure / Unknown 12/23/2023 12:00 PM EDT 12/23/2023 Narrative [facility] - 12/24/2023 10:09 AM EDT Performed at: 01 - [facility] [address] [id number] Salesperson Hosiery: Eduardo Jonas PhD, Phone: [phone] Salas Massey MD LAB URINE ORDERABLES Final Resu lt [facility] * Bilateral screening mammogram with tomosynthesis (07/31/2023 3:20 PM EDT) Anatomical Region Laterality Modality Breast Bilateral Mammography 07/31/2023 4:19 PM EDT Impressions 08/03/2023 7:48 AM EDT BIRADS 2 - Benign Follow-up: Routine Screening Mamm Board Certified Radiologists. Accredited by the ACR and FDA. MAMMOGRAPHY IS VERY IMPORTANT TO YOUR HEALTH. THE [place] [employer] GUIDELINES RECOMMEND THAT WOMEN 40 YEARS OF AGE AND OLDER SHOULD HAVE A MAMMOGRAM EVERY YEAR. A REMINDER LETTER WILL BE SENT AT THE APPROPRIATE TIME. THIS FACILITY UTILIZES A REMINDER SYSTEM TO ENSURE ALL PATIENTS RECEIVE REMINDER NOTIFICATIONS AT THE APPROPRIATE TIME BASED ON THE RECOMMENDATIONS OF THIS EXAM. THIS INCLUDES REMINDERS FOR ROUTINE SCREENING MAMMOGRAMS, DIAGNOSTIC MAMMOGRAMS IN WHICH THE PATIENT IS ASKED TO RETURN FOR ADDITIONAL VIEWS, OR OTHER BREAST IMAGING INTERVENTIONS WHEN APPROPRIATE. THE PATIENT WILL BE PLACED IN THE APPROPRIATE REMINDER SYSTEM INCLUDING A REMINDER AT THE APPROPRIATE TIME FOR ANY PENDING ADDITIONAL VIEWS. TRANSCRIBED BY: ELECTRONICALLY SIGNED BY: Ahmet Zapien MD Narrative 08/03/2023 7:48 AM EDT EXAMINATION: BI MAMMOGRAM SCREENING TOMOSYNTHESIS BILATERAL CLINICAL HISTORY:screening COMPARISON: May 31, 2021. RESULT: Digital mammography and 3D tomosynthesis of bilateral breasts was performed. Density: Scattered fibroglandular density [2] Overall appearance is stable. Typically benign calcifications. There is no suspicious mass, asymmetry, architectural distortion, or calcification Procedure Note Ahmet Zapien MD - 08/03/2023 EXAMINATION: BI MAMMOGRAM SCREENING TOMOSYNTHESIS BILATERAL CLINICAL HISTORY:screening COMPARISON: May 31, 2021. RESULT: Digital mammography and 3D tomosynthesis of bilateral breasts wasperformed. Density: Scattered fibroglandular density [2] Overall appearance is stable. Typically benign calcifications. There is no suspicious mass, asymmetry, architectural distortion, orcalcification IMPRESSION: BIRADS 2 - Benign Follow-up: Routine Screening Mamm Board Certified Radiologists. Accredited by the ACR and FDA. MAMMOGRAPHY IS VERY IMPORTANT TO YOUR HEALTH. THE [place] [employer] SOCIETYGUIDELINES RECOMMEND THAT WOMEN 40 YEARS OF AGE AND OLDER SHOULD HAVE AMAMMOGRAM EVERY YEAR. A REMINDER LETTER WILL BE SENT AT THE APPROPRIATE TIME. THIS FACILITYUTILIZES A REMINDER SYSTEM TO ENSURE ALL PATIENTS RECEIVE REMINDERNOTIFICATIONS AT THE APPROPRIATE TIME BASED ON THE RECOMMENDATIONS OF THISEXAM. THIS INCLUDES REMINDERS FOR ROUTINE SCREENING MAMMOGRAMS, DIAGNOSTICMAMMOGRAMS IN WHICH THE PATIENT IS ASKED TO RETURN FOR ADDITIONAL VIEWS,OR OTHER BREAST IMAGING INTERVENTIONS WHEN APPROPRIATE. THE PATIENT WILLBE PLACED IN THE APPROPRIATE REMINDER SYSTEM INCLUDING A REMINDER AT THEAPPROPRIATE TIME FOR ANY PENDING ADDITIONAL VIEWS. TRANSCRIBED BY: ELECTRONICALLY SIGNED BY: Ahmet Zapien MD [facility] BI PROCEDURES Final Res ult * Color Fundus Photography - OU - Both Eyes (05/24/2021 12:00 PM EST) Anatomical Region Laterality Modality Head Fundus Photograp hy 05/24/2021 12:0 0 PM EST Narrative 05/24/2021 12:00 PM EST PERFORMED AT [facility] LOCATION:[id number] No DM Retinopathy Procedure Note CONVERSION, GENERIC - 08/27/2022 PERFORMED AT [facility] LOCATION:[id number] No DM Retinopathy Salas Massey MD OPHTH PHOTOGRAPHY Final Result * Colonoscopy (02/21/2016 12:00 PM EST) Anatomical Region Laterality Modality Endoscopy 02/21/2016 12:0 0 PM EST Narrative 02/21/2016 12:00 PM EST PERFORMED AT [facility] LOCATION:[id number] Mild Diverticulosis. Two diminutive polyps,sigmoid colon, removed Procedure Note CONVERSION, GENERIC - 08/28/2022 PERFORMED AT [facility] LOCATION:[id number] Mild Diverticulosis. Two diminutive polyps,sigmoid colon, removed Salas Massey MD ENDOSCOPY PROCEDURE ORDERABLES Final Result from Last 3 Months or Most Recently Relevant to Health Maintenance Insurance [employer] Care Teams Stretcher Leveler Operator Relationship Specialty Start Date End Date Salas Massey MD [address] [place] [address] PCP - General Internal Medicine 10/20/22 Salas Massey MD [address] [place] [address] PCP - Devoted 04/13/24 Jignesh Dinh MD [address] [place] [address] Referring Physician Neurology 04/15/23 Eliot Rider DO [facility] [place] [address] Referring Physician Orthopaedic Surgery 07/07/23 Marixa Sampson, RN Registered Nurse Family Medicine 06/23/24
--- OUTSIDE RECORDS SUMMARY | 2024-09-20 11:06 | XMS_ITS | Encounter Summary ---
Author Organization [facility] Address [address] [place] [address] Care Team Providers Care Drop Wire Aliner Name Role Phone Salas Massey MD Primary Care Provider Jignesh Dinh MD Unavailable Eliot Rider DO Unavailable [phone] Salas Massey MD Unavailable [phone] Marixa Sampson RN Unavailable Unavailable Encounter Details Date Type Department Care Team (Latest Contact Info) Description 09/14/2024 Travel Social History Tobacco Use Types Packs/Day [...] How often do you attend chur or pentecostal services? Patient declined 08/13/2024 Do you belong to any clubs o r organizations such as muslim groups, unions, fraternal or athletic groups, or [...] Recorded Patient Health Questionnaire-2 Score 3 09/14/2024 [facility] - Occupational Stress [...] were you homeless or living in a chcf (including now)? 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 Question Answer Date of Assessment Author Patient Health Questionnaire-2 Score 3 07/2024 8:47 AM EDT Leila Salazar * Little interest or pleasure in doing things Answer Date of Assessment Author More than half the days 09/14/2024 8:47 AM EDT Leila Brown * Feeling down, depressed, or hopeless Answer Date of Assessment Author Several days 09/14/2024 8:47 AM EDT Mychart, Generic * Question Answer Date of Assessment Author Patient Health Questionnaire-9 Score 13 07/2024 8:47 AM EDT Mychart, Generic * Trouble falling or staying asleep, or sleeping too much Answer Date of Assessment Author Nearly every day 09/14/2024 8:47 AM EDT Mychart, Generic * Feeling tired or having little energy Answer Date of Assessment Author More than half the days 09/14/2024 8:47 AM EDT M ychart, Generic * Poor appetite or overeating Answer Date of Assessment Author Several days 09/14/2024 8:47 AM EDT Mychart, Generic * Feeling bad about yourself - or that you are a failure or have let yourself or your family down Answer Date of Assessment Author Several days 09/14/2024 8:47 AM EDT Mychart, Generic * Trouble concentrating on things, such as reading the newspaper or watching television Answer Date of Assessment Author Several days 09/14/2024 8:47 AM EDT Mychart, Generic * Moving or speaking so slowly that other people could have noticed? Or the opposite - being so fidgety or restless that you have been moving around a lot more than usual. Answer Date of Assessment Author More than half the days 09/14/2024 8:47 AM EDT M ychart, Generic * Thoughts that you would be better off or hurting yourself in some way Answer Date of Assessment Author Not at all 09/14/2024 8:47 AM EDT Mychart, Generic documented as of this encounter Plan of Treatment Upcoming Encounters Date Type Department Care Team (Late st Contact Info) Description 09/21/2024 2:30 PM EDT Office Visit [facility] IM [address] [place] [address] 10/24/2024 2:30 PM EDT Clinical Support [facility] FM [address] [place] [address] Dov Gonzalez RN documented as of this encounter Visit Diagnoses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documented in this encounter Care Teams Drop Wire Aliner Relationship Specialty Start Date End Date Salas Massey MD [address] [place] [address] PCP - General Internal Medicine 10/20/22 Salas Massey MD [address] [place] [address] PCP - Devoted 04/13/24 Jignesh Dinh MD [address] [place] [address] Referring Physician Neurology 04/15/23 Eliot Rider DO [address] [place], [place] [address] [place] [address] Referring Physician Orthopaedic Surgery 07/07/23 Marixa Sampson, ASHWIN Registered Nurse Family Medicine 06/23/24 documented as of this encounter
--- OUTSIDE RECORDS SUMMARY | 2024-09-20 11:06 | XMS_ITS | Encounter Summary ---
Author Organization [facility] Address [address] [facility] [address] Care Team Providers Care Top Hat Body Maker Name Role Phone Salas Massey MD Primary Care Provider [phone] Jignesh Dinh MD Unavailable [phone] Eliot Rider DO Unavailable [phone] Salas Massey MD Unavailable [phone] Marixa Sampson RN Unavailable Unavailable Encounter Details Date Type Department Care Team (Late st Contact Info) Description 07/21/2024 Abstract [facility] [address] [facility] [address] [place] [address] Salas Massey MD [address] [facility] [address] [place] [address] Social History Tobacco Use Types Packs/Day Years [...] 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, 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, [employer]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 documented as of this encounter Plan of Treatment Upcoming Encounters Date Type Department Care Team (Late st Contact Info) Description 09/21/2024 2:30 PM EDT Office Visit [facility] IM [address] [place] [address] 10/24/2024 2:30 PM EDT Clinical Support [facility] FM [address] [place] [address] Dov Gonzalez RN documented as of this encounter Visit Diagnoses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documented in this encounter Care Teams Top Hat Body Maker Relationship Specialty Start Date End Date Salas Massey MD [address] [place] [address] PCP - General Internal Medicine 10/20/22 Salas Massey MD [address] [place] [address] PCP - Devoted 04/13/24 Jignesh Dinh MD [address] [place] [address] Referring Physician Neurology 04/15/23 Eliot Rider DO [facility] [place] [address] Referring Physician Orthopaedic Surgery 07/07/23 Marixa Sampson, ASHWIN Registered Nurse Family Medicine 06/23/24 documented as of this encounter
--- OUTSIDE RECORDS SUMMARY | 2024-09-20 11:06 | XMS_ITS | Encounter Summary ---
Author Organization [facility] Address [address] [facility] [place] [address] Care Team Providers Care Cloth Piecer Name Role Phone Salas Massey MD Primary Care Provider Salas Massey MD Unavailable [phone] Jignesh Dinh MD Unavailable [phone] Eliot Rider DO Unavailable [phone] Salas Massey MD Unavailable [phone] Marixa Sampson RN Unavailable Unavailable Encounter Details Date Type Department Care Team (Late st Contact Info) Description 11/26/2022 Orders Only [facility] [address] 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 documented as of this encounter Plan of Treatment Upcoming Encounters Date Type Department Care Team (Late st Contact Info) Description 09/21/2024 2:30 PM EDT Office Visit [facility] IM [address] [place] [address] 10/24/2024 2:30 PM EDT Clinical Support [facility] FM [address] [place] [address] Dov Gonzalez RN documented as of this encounter Procedures Procedure Name Priority Date/Time Associated Diagnosis Comments SCANNED LABS Routine 11/18/2022 8:11 AM EDT documented in this encounter Results * SCANNED LABS (11/18/2022 8:11 AM EDT) us Unknown Practice A LAB CHG PERFORMABLES Final Re sult documented in this encounter Visit Diagnoses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documented in this encounter Care Teams Cloth Piecer Relationship Specialty Start Date End Date Salas Massey MD [address] [place] [address] PCP - General Internal Medicine 10/20/22 Salas Massey MD [address] [place] [address] PCP - Devoted 12/12/22 07/12/23 Salas Massey MD [address] [place] [address] PCP - Devoted 04/13/24 Jignesh Dinh MD [address] [place] [address] Referring Physician Neurology 04/15/23 Eliot Rider DO [address] [place] [address] Referring Physician Orthopaedic Surgery 07/07/23 Marixa Sampson, RN Registered Nurse Family Medicine 06/23/24 documented as of this encounter
--- OUTSIDE RECORDS SUMMARY | 2024-09-20 11:06 | XMS_ITS | Encounter Summary ---
Author Organization [facility] Address [address] [facility] [place] [address] Care Team Providers Care Solderer Assembler Name Role Phone Salas Massey MD Primary Care Provider [phone] Salas Massey MD Unavailable [phone] Jignesh Dinh MD Unavailable Eliot Rider DO Unavailable [phone] Salas Massey MD Unavailable [phone] Marixa Sampson RN Unavailable Unavailable Encounter Details Date Type Department Care Team (Late st Contact Info) Description 12/02/2022 Orders Only [facility] [address] [facility] [address] [place] [address] A, Unknown Practice [address] [place] [phone] Social History Tobacco Use Types Packs/Day [...] 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, 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, [place]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 documented as of this encounter Plan of Treatment Upcoming Encounters Date Type Department Care Team (Late st Contact Info) Description 09/21/2024 2:30 PM EDT Office Visit [facility] IM [address] [place] [address] 10/24/2024 2:30 PM EDT Clinical Support [facility] [address] [place] [address] Dov Gonzalez RN documented as of this encounter Procedures Procedure Name Priority Date/Time Associated Diagnosis Comments TRANSTHORACIC ECHO (TTE) COMPLETE Routine 12/02/2022 3:04 PM EDT documented in this encounter Results * Transthoracic echo (TTE) complete (12/02/2022 3:04 PM EDT) Anatomical Region Laterality Modality Heart Ultrasound us Unknown Practice A CV ECHO PROCEDURES Final Resu lt documented in this encounter Visit Diagnoses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documented in this encounter Care Teams Solderer Assembler Relationship Specialty Start Date End Date Salas Massey MD [address] [place] [address] PCP - General Internal Medicine 10/20/22 Salas Massey MD [address] [place] [address] PCP - Devoted 12/12/22 07/12/23 Salas Massey MD [address] [place] [address] PCP - Devoted 04/13/24 Jignesh Dinh MD [address] [facility] [address] [place] [address] Referring Physician Neurology 04/15/23 Eliot Rider DO [address] [place] [address] Referring Physician Orthopaedic Surgery 07/07/23 Marixa Sampson, RN Registered Nurse Family Medicine 06/23/24 documented as of this encounter
--- OUTSIDE RECORDS SUMMARY | 2024-09-20 11:06 | XMS_ITS | Encounter Summary ---
Author Organization [facility] Address [address] [place] [address] Care Team Providers Care Coal Drier Operator Name Role Phone Salas Massey MD Primary Care Provider Salas Massey MD Unavailable [phone] Jignesh Dinh MD Unavailable Eliot Rider DO Unavailable [phone] Salas Massey MD Unavailable [phone] Marixa Sampson RN Unavailable Unavailable Encounter Details Date Type Department Care Team (Late st Contact Info) Description 11/17/[address] [facility] [address] [address] Andrey Rosado MD [address] [facility] [address] [place] [address] Social History Tobacco Use Types [...] 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, 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, [place]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 documented as of this encounter Plan of Treatment Upcoming Encounters Date Type Department Care Team (Late st Contact Info) Description 09/21/2024 2:30 PM EDT Office Visit [facility] IM [address] [place] [address] 10/24/2024 2:30 PM EDT Clinical Support [facility] FM [address] [place] [address] Dov Gonzalez RN documented as of this encounter Visit Diagnoses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documented in this encounter Care Teams Coal Drier Operator Relationship Specialty Start Date End Date Salas Massey MD [address] [place] [address] PCP - General Internal Medicine 10/20/22 Salas Massey MD [address] [place] [address] PCP - Devoted 12/12/22 07/12/23 Salas Massey MD [address] [place] [address] PCP - Devoted 04/13/24 Jignesh Dinh MD [address] [place] [address] Referring Physician Neurology 04/15/23 Eliot Rider DO [facility] [address] Referring Physician Orthopaedic Surgery 07/07/23 Marixa Sampson, ASHWIN Registered Nurse Family Medicine 06/23/24 documented as of this encounter
--- OUTSIDE RECORDS SUMMARY | 2024-09-20 11:06 | XMS_ITS | Encounter Summary ---
Author Organization [facility] Address [address] [place] [address] Care Team Providers Care Telephone Station Installer Name Role Phone Salas Massey MD Primary Care Provider Jignesh Dinh MD Unavailable [phone] Eliot Rider DO Unavailable [phone] Salas Massey MD Unavailable [phone] Marixa Sampson RN Unavailable Unavailable Encounter Details Date Type Department Care Team (Late st Contact Info) Description 09/15/2024 External Result Encounter [facility] External Department Unsolicited Salas Massey MD [address] [place] [address] Social History Tobacco Use Types [...] How often do you attend chur or church services? Patient declined 08/13/2024 Do you belong to any clubs o r organizations such as hoahaoism groups, unions, fraternal or athletic groups, or [...] Recorded Patient Health Questionnaire-2 Score 3 09/14/2024 [facility] Occupat ional Health - Occupational Stress [...] [facility] in the [facility] were you homeless or living in a custodial (including now)? 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 documented as of this encounter Plan of Treatment Upcoming Encounters Date Type Department Care Team (Late st Contact Info) Description 09/21/2024 2:30 PM EDT Office Visit [facility] [address] [place] [address] 10/24/2024 2:30 PM EDT Clinical Support [facility] [address] [place] [address] Dov Gonzalez RN documented as of this encounter Procedures Procedure Name Priority Date/Time Associated Diagnosis Comments CBC WITH AUTO DIFFERENTIAL Routine 09/15/2024 12:55 PM EDT documented in this encounter Results * (ABNORMAL) CBC auto differential (09/15/2024 12:55 PM EDT) WBC 7.9 3.8 - 11.6 10*3/uL 09/15/2024 5:00 PM EDT [facility] UNCORRECTED WHITE BLOOD COUNT 7.9 3.8 - 11.6 10*3/uL 09/15/2024 5:00 PM EDT [facility] RBC 3.35(L) 3.60 - 5.00 10*6/uL 09/15/2024 5:00 PM EDT [facility] HEMOGLOBIN 11.6(L) 11.8 - 15.4 g/dL 09/15/2024 5:00 PM EDT [facility] HEMATOCRIT 34.3 34.0 - 46.4 % 09/15/2024 5:00 PM EDT [facility] MCV 102.6(H) 80 - 100 fL 09/15/2024 5:00 PM EDT [facility] MCH 34.6(H) 24.7 - 34.3 pg 09/15/2024 5:00 PM EDT [facility] MCHC 33.7 32.0 - 35.0 g/dL 09/15/2024 5:00 PM EDT [facility] RED CELL DISTRIBUTION WIDTH, RDW 14.8 11.9 - 15.3 % 09/15/2024 5:00 PM EDT [facility] PLATELET COUNT 298 150 - 450 10*3/uL 09/15/2024 5:00 PM EDT [facility] MEAN PLATELET VOLUME, MPV 7.5 6.3 - 10.7 fL 09/15/2024 5:00 PM EDT [facility] NEUTROPHILS, % 67.2 . % 09/15/2024 5:00 PM EDT [facility] LYMPHOCYTES, % 20.2 . % 09/15/2024 5:00 PM EDT [facility] MONOCYTE/MACROPHA GE, % 8.7 . % 09/15/2024 5:00 PM EDT [facility] EOSINOPHILS, % 3.0 . % 09/15/2024 5:00 PM EDT [facility] BASOPHILS, % 0.9 . % 09/15/2024 5:00 PM EDT [facility] NRBC 0.1 0 - 0.5 /100{WBC} 09/15/2024 5:00 PM EDT [facility] NEUTROPHILS 5.3 1.8 - 7.7 10*3/uL 09/15/2024 5:00 PM EDT [facility] LYMPHOCYTES 1.6 1.00 - 4.8 10*3/uL 09/15/2024 5:00 PM EDT [facility] MONOCYTES 0.7 0.0 - 0.8 10*3/uL 09/15/2024 5:00 PM EDT [facility] EOSINOPHILS 0.2 0.0 - 0.45 10*3/uL 09/15/2024 5:00 PM EDT [facility] BASOPHILS 0.1 0.0 - 0.2 10*3/uL 09/15/2024 5:00 PM EDT [facility] Blood (Blood) 09/15/2024 12: 55 PM EDT 09/15/2024 4:46 PM EDT Salas Massey MD LAB BLOOD ORDERABLES Final Resu lt [facility] [address] [place] [address], [facility] [address] [place] [address] documented in this encounter Visit Diagnoses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documented in this encounter Care Teams Telephone Station Installer Relationship Specialty Start Date End Date Salas Massey MD [address] [place] [address] PCP - General Internal Medicine 10/20/22 Salas Massey MD [address] [place] [address] PCP - Devoted 04/13/24 Jignesh Dinh MD [address] [place] [address] Referring Physician Neurology 04/15/23 Eliot Rider DO [address] [place] [address] Referring Physician Orthopaedic Surgery 07/07/23 Marixa Sampson, RN Registered Nurse Family Medicine 06/23/24 documented as of this encounter
--- OUTSIDE RECORDS SUMMARY | 2024-09-20 11:06 | XMS_ITS | Encounter Summary ---
Author Organization [facility] Address [address] [place] [address] Care Team Providers Care Machine Clothing Man Name Role Phone Yessenia Garcia MD Primary Care Provider [phone] Jignesh Dinh MD Unavailable Eliot Rider DO Unavailable [phone] Yessenia Garcia MD Unavailable [phone] Marixa Sampson RN Unavailable Unavailable Encounter Details Date Type Department Care Team (Late st Contact Info) Description 09/16/2024 Patient Outreach [facility] [address] [place] [address] Marixa Sampson, ASHWIN Social History Tobacco Use [...] declined 08/13/2024 How often do you attend [facility] or tenriism services? Patient declined 08/13/2024 Do you belong to any clubs o r organizations such as mosque groups, unions, fraternal or athletic groups, or [...] any time in the past 12 m [facility], were you homeless or living in a intermediate (including now)? 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 Pt had Neurology appt with Dr Dinh who placed patient on Aricept 5mg after sleep study was completed. Pt has been completely weaned off of Gabapentin. Nephrology saw patient on 08/25/24 and placed patient on Flomax. Medication list updated with changes. Patient has follow up with diabetic education on 09/19/24. Sister statesniranjan is probably useless due to patient eats whatever she wants. Betsy is overseeing all medical concerns and her brother is managing patient's finances. Betsy states she places patient's medications in med cups for am, noon, and pm and that this is working out well. Pt has pulmonary function test and Dr Levy appt on 09/20/24. Pt has follow up PCP appt on 09/21/24. Betsy states patient is making improvements and states only need is a Tramadol refill. Request sent to Dr Garcia. documented in this encounter Miscellaneous Notes * Addendum Note - Yessenia Garcia MD - 09/16/2024 9:47 AM EDTAddended by: YESSENIA GARCIA on: 09/16/2024 12:32 PM Modules accepted: Orders documented in this encounter Plan of Treatment Upcoming Encounters Date Type Department Care Team (Late st Contact Info) Description 09/21/2024 2:30 PM EDT Office Visit [facility] IM [address] [place] [address] 10/24/2024 2:30 PM EDT Clinical Support [facility] FM [address] [place] [address] Dov Gonzalez RN documented as of this encounter Visit Diagnoses Diagnosis Essential hypertension (CMS/HCC)- Primary Unspecified essential hypertension Type 2 diabetes mellitus without complication, without long-term current use of insulin Idiopathic progressive neuropathy Polyneuropathy associated with underlying disease (CMS/HCC) documented in this encounter Care Teams Machine Clothing Man Relationship Specialty Start Date End Date Yessenia Garcia MD [address] [place] [address] PCP - General Internal Medicine 10/20/22 Yessenia Garcia MD [address] [place] [address] PCP - Devoted 04/13/24 Jignesh Dinh MD [address] [place] [address] Referring Physician Neurology 04/15/23 Eliot Rider DO [address] [place] [address] [place] [address] Referring Physician Orthopaedic Surgery 07/07/23 Marixa Sampson, RN Registered Nurse Family Medicine 06/23/24 documented as of this encounter
--- OUTSIDE RECORDS SUMMARY | 2024-09-20 11:06 | XMS_ITS | Encounter Summary ---
Author Organization [facility] Address [address] [place] [address] Care Team Providers Care Distribution Operation Supervisor Name Role Phone Salas Massey MD Primary Care Provider Salas Massey MD Unavailable [phone] Jignesh Dinh MD Unavailable Eliot Rider DO Unavailable [phone] Salas Massey MD Unavailable [phone] Marixa Sampson RN Unavailable Unavailable Encounter Details Date Type Department Care Team (Late st Contact Info) Description 02/03/2023 Abstract [facility] [address] [place] [id number] Jignesh Dinh MD [address] [place], [place] [id number] Social History Tobacco Use Types Packs/Day Years Used Date Smoking Tobacco: Former Cigarettes Q uit: 04/13/1998 Smokeless Tobacco: Never Tobacco Cessation:Counseling Given: Not Answered Comments:10-19 cigarettes/day Alcohol Use Standard Drinks/Week Comments Not Currently 0 (1 standard drink = 0.6 oz pure alcohol) caffeine intake: 1-2 cans of pop per day Comments Unknown Sex and Gender Information Value Date Recorded Sex Assigned at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 Legal Sex Female 7:21 PM EDT Gender Identity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 Sexual Orientation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, 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, [place]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 documented as of this encounter Plan of Treatment Upcoming Encounters Date Type Department Care Team (Late st Contact Info) Description 09/21/2024 2:30 PM EDT Office Visit [facility] IM [address] [place] [phone] 10/24/2024 2:30 PM EDT Clinical Support [facility] FM [address] [place] [phone] Dov Gonzalez RN documented as of this encounter Visit Diagnoses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documented in this encounter Care Teams Distribution Operation Supervisor Relationship Specialty Start Date End Date Salas Massey MD [address] [place] [address] PCP - General Internal Medicine 10/20/22 Salas Massey MD [address] [place] [address] PCP - Devoted 12/12/22 07/12/23 Salas Massey MD [address] [place] [address] PCP - Devoted 04/13/24 Jignesh Dinh MD [address] [place] [address] Referring Physician Neurology 04/15/23 Eliot Rider DO [facility] [place] [address] Referring Physician Orthopaedic Surgery 07/07/23 Marixa Sampson, ASHWIN Registered Nurse Family Medicine 06/23/24 documented as of this encounter
--- OUTSIDE RECORDS SUMMARY | 2024-09-20 11:06 | XMS_ITS | Encounter Summary ---
Author Organization [facility] Address [address] [facility] [place] [address] Care Team Providers Care National Van Owner Operator Name Role Phone Salas Massey MD Primary Care Provider Salas Massey MD Unavailable [phone] Jignesh Dinh MD Unavailable [phone] Eliot Rider DO Unavailable [phone] Salas Massey MD Unavailable [phone] Marixa Sampson RN Unavailable Unavailable Encounter Details Date Type Department Care Team (Late st Contact Info) Description 11/21/2022 Orders Only [facility] [address] [facility] [address] [place] [address] A, Unknown Practice [address] [place] [phone] Social History Tobacco Use Types Packs/Day [...] 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, 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, [place]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 documented as of this encounter Plan of Treatment Upcoming Encounters Date Type Department Care Team (Late st Contact Info) Description 09/21/2024 2:30 PM EDT Office Visit [facility] IM [address] [place] [address] 10/24/2024 2:30 PM EDT Clinical Support [facility] FM [address] [place] [address] Dov Gonzalez RN documented as of this encounter Procedures Procedure Name Priority Date/Time Associated Diagnosis Comments CT UPPER EXTREMITY LEFT W AND WO IV CONTRAST Routine 11/18/2022 8:33 AM EDT documented in this encounter Results * CT upper extremity left w and wo IV contrast (11/18/2022 8:33 AM EDT) Anatomical Region Laterality Modality Upper Extremities Left Computed Tomog yoseph us Unknown Practice A IMG CT PROCEDURES Final Resul t documented in this encounter Visit Diagnoses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documented in this encounter Care Teams National Van Owner Operator Relationship Specialty Start Date End Date Salas Massey MD [address] [place] [address] PCP - General Internal Medicine 10/20/22 Salas Massey MD [address] [place] [address] PCP - Devoted 12/12/22 07/12/23 Salas Massey MD [address] [place] [address] PCP - Devoted 04/13/24 Jignesh Dinh MD [address] [facility] [address] [place] [address] Referring Physician Neurology 04/15/23 Eliot Rider DO [address] [place] [address] [facility] [place] [address] Referring Physician Orthopaedic Surgery 07/07/23 Marixa Sampson, RN Registered Nurse Family Medicine 06/23/24 documented as of this encounter
--- OUTSIDE RECORDS SUMMARY | 2024-09-20 11:07 | XMS_ITS | Encounter Summary ---
Author Organization [facility] Address [address] [facility] [place] [address] Care Team Providers Care Tank Car Reconditioner Name Role Phone Salas Massey MD Primary Care Provider [phone] Salas Massey MD Unavailable [phone] Jignesh Dinh MD Unavailable [phone] Eliot Rider DO Unavailable [phone] Salas Massey MD Unavailable [phone] Marixa Sampson RN Unavailable Unavailable Encounter Details Date Type Department Care Team (Late st Contact Info) Description 11/19/2022 Orders Only [facility] [address] [place] [address] A, Unknown Practice [address] [place] [address] Social History Tobacco Use Types Packs/Day [...] 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, 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, [place]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 documented as of this encounter Plan of Treatment Upcoming Encounters Date Type Department Care Team (Late st Contact Info) Description 09/21/2024 2:30 PM EDT Office Visit [facility] IM [address] [place] [phone] 10/24/2024 2:30 PM EDT Clinical Support [facility] FM [address] [place] [address] Dov Gonzalez RN documented as of this encounter Procedures Procedure Name Priority Date/Time Associated Diagnosis Comments SCANNED LABS Routine 11/18/2022 8:22 AM EDT documented in this encounter Results * SCANNED LABS (11/18/2022 8:22 AM EDT) us Unknown Practice A LAB CHG PERFORMABLES Final Re sult documented in this encounter Visit Diagnoses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documented in this encounter Care Teams Tank Car Reconditioner Relationship Specialty Start Date End Date Salas Massey MD [address] [place] [address] PCP - General Internal Medicine 10/20/22 Salas Massey MD [address] [place] [address] PCP - Devoted 12/12/22 07/12/23 Salas Massey MD [address] [place] [address] PCP - Devoted 04/13/24 Jignesh Dinh MD [address] [place] [address] Referring Physician Neurology 04/15/23 Eliot Rider DO [address] [place] [address] Referring Physician Orthopaedic Surgery 07/07/23 Marixa Sampson, RN Registered Nurse Family Medicine 06/23/24 documented as of this encounter
--- OUTSIDE RECORDS SUMMARY | 2024-09-20 11:07 | XMS_ITS | Encounter Summary ---
Author Organization [facility] Address [address] [place] [address] Care Team Providers Care Sexual Abuse Counsellor Name Role Phone Salas Massey MD Primary Care Provider Salas Massey MD Unavailable [phone] Jignesh Dinh MD Unavailable Eliot Rider DO Unavailable [phone] Salas Massey MD Unavailable [phone] Marixa Sampson RN Unavailable Unavailable Encounter Details Date Type Department Care Team (Late st Contact Info) Description 12/03/2022 Clinisync Result Encounter [facility] External Department Unsolicited Eliot Rider DO [address] [place], [place] [id number] Social History Tobacco Use Types Packs/Day Years [...] 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, 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[employer], [place]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 documented as of this encounter Plan of Treatment Upcoming Encounters Date Type Department Care Team (Late st Contact Info) Description 09/21/2024 2:30 PM EDT Office Visit [facility] [address] [place] [address] 10/24/2024 2:30 PM EDT Clinical Support [facility] [address] [place] [address] Dov Gonzalez RN documented as of this encounter Procedures Procedure Name Priority Date/Time Associated Diagnosis Comments XR SHOULDER COMPLETE LEFT 12/03/2022 12:10 PM EDT documented in this encounter Results * XR SHOULDER COMPLETE LEFT (12/03/2022 12:10 PM EDT) Anatomical Region Laterality Modality Other 12/03/2022 12:1 0 PM EDT Narrative 12/06/2022 8:10 AM EDT Exam Date/Time: 12/03/2022 12:38 EDT Reason for Exam: Post Op Report IMPRESSION: UNREMARKABLE RECENT LEFT REVERSE TOTAL SHOULDER ARTHROPLASTY PLACEMENT. CLINICAL HISTORY: Post Op. COMPARISON: 10/20/2022. TECHNIQUE: Portable AP and axillary radiographs of the left shoulder were obtained. FINDINGS: A left reverse total shoulder arthroplasty has been placed in expected position. There is no evidence of hardware loosening, periprosthetic fracture, or other findings of concern identified. Soft tissue emphysema is noted from recent placement. Ordering Provider: Eliot Rider FINAL REPORT Dictated: 12/06/2022 8:07 am Eduardo Aviles MD Signed (Electronic Signature): 12/06/2022 8:07 am Signed by: Eduardo Aviles MD Transcribed by: JULIAN Technologist: GUERDA Technical Comments Radiation Dose: Ka,r in mGy = 0 DAP = 0 Procedure Note Radiology, Radiologist, - 12/06/2022 Exam Date/Time: 12/03/2022 12:38 EDT Reason for Exam: Post Op Report IMPRESSION: UNREMARKABLE RECENT LEFT REVERSE TOTAL SHOULDER ARTHROPLASTYPLACEMENT. CLINICAL HISTORY: Post Op. COMPARISON: 10/20/2022. TECHNIQUE: Portable AP and axillary radiographs of the left shoulder wereobtained. FINDINGS: A left reverse total shoulder arthroplasty has been placed in expectedposition. There is no evidence of hardware loosening, periprosthetic fracture, orother findings of concern identified. Soft tissue emphysema is noted from recent placement. Ordering Provider: Eliot Rider FINAL REPORT Dictated: 12/06/2022 8:07 am Eduardo Aviles MD Signed (Electronic Signature): 12/06/2022 8:07 am Signed by: Eduardo Aviles MD Transcribed by: JULIAN Technologist: GUERDA Technical Comments Radiation Dose: Ka,r in mGy = 0 DAP = 0 Eliot Rider DO [facility] Final Result documented in this encounter Visit Diagnoses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documented in this encounter Care Teams Sexual Abuse Counsellor Relationship Specialty Start Date End Date Salas Massey MD [address] [place] [address] PCP - General Internal Medicine 10/20/22 Salas Massey MD [address] [place] [address] PCP - Devoted 12/12/22 07/12/23 Salas Massey MD [address] [place] [address] PCP - Devoted 04/13/24 Jignesh Dinh MD [address] [place] [address] Referring Physician Neurology 04/15/23 Eliot Rider DO [address] [place] [address] Referring Physician Orthopaedic Surgery 07/07/23 Marixa Sampson, RN Registered Nurse Family Medicine 06/23/24 documented as of this encounter
--- OUTSIDE RECORDS SUMMARY | 2024-09-20 11:07 | XMS_ITS ---
Author Organization [facility] Address [address] [place] [address] Care Team Providers Care New Media Strategist Name Role Phone Salas Massey MD Primary Care Provider Jignesh Dinh MD Unavailable Eliot Rider DO Unavailable [phone] Salas Massey MD Unavailable [phone] Marixa Sampson RN Unavailable Unavailable Chronic Care Management (CCM) Status:Enrolled (Active) Start date:06/23/2024 Enrollment date:06/23/2024 Enrollment reason:Identified using hospital discharge data Overview Please assess for Care Management needs. <June 23, 2024, 07:57 - Marixa Sampson, ASHWIN> Patient gives verbal consent to be enrolled in CCM program and understands there could be a bill for this service. Case Team Name Relationship Phone Marixa Sampson RN(Responsible Staff) Registered Liu aguilar Continued Care and Services Coordination
--- OUTSIDE RECORDS SUMMARY | 2024-09-20 11:07 | XMS_ITS | Encounter Summary ---
Author Organization [facility] Address [address] [place] [address] Care Team Providers Care Internet Salesperson Name Role Phone Salas Massey MD Primary Care Provider Salas Massey MD Unavailable [phone] Jignesh Dinh MD Unavailable [phone] Eliot Rider DO Unavailable [phone] Salas Massey MD Unavailable [phone] Marixa Sampson RN Unavailable Unavailable Encounter Details Date Type Department Care Team (Late st Contact Info) Description 11/18/2022 Clinisync Result Encounter [facility] External Department Unsolicited Eliot Rider DO [address] [place], [place] [phone] Social History Tobacco Use Types Packs/Day Years [...] 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, 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, [employer]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 documented as of this encounter Plan of Treatment Upcoming Encounters Date Type Department Care Team (Late st Contact Info) Description 09/21/2024 2:30 PM EDT Office Visit [facility] [address] [place] [address] 10/24/2024 2:30 PM EDT Clinical Support [facility] [address] [place] [address] Dov Gonzalez RN documented as of this encounter Procedures Procedure Name Priority Date/Time Associated Diagnosis Comments CT UPPER EXTREMITY W/O CONTRAST LEFT 11/18/2022 4:12 PM EDT documented in this encounter Results * CT UPPER EXTREMITY W/O CONTRAST LEFT (11/18/2022 4:12 PM EDT) Anatomical Region Laterality Modality Other 11/18/2022 4:12 PM EDT Narrative 11/20/2022 3:51 PM EDT Exam Date/Time: 11/18/2022 16:25 EDT Reason for Exam: OA LEFT SHOULDER Report IMPRESSION: LEFT SHOULDER OSTEOARTHRITIS. EXAMINATION: CT Upper Extremity w/o Contrast Left HISTORY: Left shoulder osteoarthritis TECHNIQUE: Multiple contiguous axial images were obtained of the left upper extremity utilizing Arthrex protocol. Multiplanar reformats were obtained. COMPARISON: Shoulder radiographs 04/21/2022 FINDINGS: Degenerative changes including joint space narrowing, subcortical cyst formation, and marginal osteophyte formation of the left glenohumeral joint. Mild degenerative changes of the left acromioclavicular joint. Small shoulder joint effusion. No acute fracture. Visualized myotendinous structures appear intact CT. Atherosclerotic calcification of the thoracic aorta. Coronary artery calcifications compatible with coronary artery disease. All CT scans at this facility use dose modulation, iterative reconstruction, and/or weight based dosing when appropriate to reduce radiation dose to as low as reasonably achievable. Ordering Provider: Eliot Rider FINAL REPORT Dictated: 11/20/2022 3:48 pm Salas Brown DO Signed (Electronic Signature): 11/20/2022 3:48 pm Signed by: Salas Brown DO Transcribed by: JULIAN Technologist: LION Procedure Note Radiology, Radiologist, - 11/20/2022 Exam Date/Time: 11/18/2022 16:25 EDT Reason for Exam: OA LEFT SHOULDER Report IMPRESSION: LEFT SHOULDER OSTEOARTHRITIS. EXAMINATION: CT Upper Extremity w/o Contrast Left HISTORY: Left shoulder osteoarthritis TECHNIQUE: Multiple contiguous axial images were obtained of the leftupper extremity utilizing Arthrex protocol. Multiplanar reformats were obtained. COMPARISON: Shoulder radiographs 04/21/2022 FINDINGS: Degenerative changes including joint space narrowing, subcortical cystformation, and marginal osteophyte formation of the left glenohumeral joint. Milddegenerative changes of the left acromioclavicular joint. Small shoulder jointeffusion. No acute fracture. Visualized myotendinous structures appear intact CT.Atherosclerotic calcification of the thoracic aorta. Coronary artery calcificationscompatible with coronary artery disease. All CT scans at this facility use dose modulation, iterativereconstruction, and/or weight based dosing when appropriate to reduce radiation dose to as low asreasonably achievable. Ordering Provider: Eliot Rider FINAL REPORT Dictated: 11/20/2022 3:48 pm Salas Brown DO Signed (Electronic Signature): 11/20/2022 3:48 pm Signed by: Salas Brown DO Transcribed by: JULIAN Technologist: LION Eliot Rider DO [facility] Final Result documented in this encounter Visit Diagnoses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documented in this encounter Care Teams Internet Salesperson Relationship Specialty Start Date End Date Salas Massey MD [address] [place] [address] PCP - General Internal Medicine 10/20/22 Salas Massey MD [address] [place] [address] PCP - Devoted 12/12/22 07/12/23 Salas Massey MD [address] [place] [address] PCP - Devoted 04/13/24 Jignesh Dinh MD [address] [place] [address] Referring Physician Neurology 04/15/23 Eliot Rider DO [address] [place] [address] [place] [address] Referring Physician Orthopaedic Surgery 07/07/23 Marixa Sampson, ASHWIN Registered Nurse Family Medicine 06/23/24 documented as of this encounter
--- OUTSIDE RECORDS SUMMARY | 2024-09-20 11:07 | XMS_ITS | Encounter Summary ---
Author Organization [facility] Address [address] [facility] [place] [address] Care Team Providers Care Scale Adjuster Name Role Phone Salas Massey MD Primary Care Provider Salas Massey MD Unavailable [phone] Jignesh Dinh MD Unavailable Eliot Rider DO Unavailable [phone] Salas Massey MD Unavailable [phone] Marixa Sampson RN Unavailable Unavailable Encounter Details Date Type Department Care Team (Late st Contact Info) Description 12/16/2022 Abstract [facility] [address] [facility] [address] [place] [address] Salas Massey MD [address] [facility] [address] [place] [address] Social History Tobacco Use Types [...] 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, 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, [employer]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 documented as of this encounter Plan of Treatment Upcoming Encounters Date Type Department Care Team (Late st Contact Info) Description 09/21/2024 2:30 PM EDT Office Visit [facility] [address] [place] [address] 10/24/2024 2:30 PM EDT Clinical Support [facility] [address] [place] [address] Dov Gonzalez RN documented as of this encounter Visit Diagnoses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documented in this encounter Care Teams Scale Adjuster Relationship Specialty Start Date End Date Salas Massey MD [address] [place] [address] PCP - General Internal Medicine 10/20/22 Salas Massey MD [address] [place] [address] PCP - Devoted 12/12/22 07/12/23 Salas Massey MD [address] [place] [address] PCP - Devoted 04/13/24 Jignesh Dinh MD [address] [place] [address] Referring Physician Neurology 04/15/23 Eliot Rider DO [facility] [place] [address] Referring Physician Orthopaedic Surgery 07/07/23 Marixa Sampson, ASHWIN Registered Nurse Family Medicine 06/23/24 documented as of this encounter
--- OUTSIDE RECORDS SUMMARY | 2024-09-20 11:07 | XMS_ITS | Encounter Summary ---
Author Organization [facility] Address [address] [facility] [place] [address] Care Team Providers Care Cotton Picker Name Role Phone Salas Massey MD Primary Care Provider [phone] Salas Massey MD Unavailable [phone] Jignesh Dinh MD Unavailable Eliot Rider DO Unavailable [phone] Salas Massey MD Unavailable [phone] Marixa Sampson RN Unavailable Unavailable Encounter Details Date Type Department Care Team (Late st Contact Info) Description 12/16/2022 Abstract [facility] [address] [facility] [address] [place] [address] Salas Massey MD [address] [facility] [address] [place] [address] Social History Tobacco Use Types [...] 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, 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, [place]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 documented as of this encounter Plan of Treatment Upcoming Encounters Date Type Department Care Team (Late st Contact Info) Description 09/21/2024 2:30 PM EDT Office Visit [facility] [address] [place] [address] 10/24/2024 2:30 PM EDT Clinical Support [facility] [address] [place] [address] Dov Gonzalez RN documented as of this encounter Visit Diagnoses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documented in this encounter Care Teams Cotton Picker Relationship Specialty Start Date End Date Salas Massey MD [address] [place] [address] PCP - General Internal Medicine 10/20/22 Salas Massey MD [address] [place] [address] PCP - Devoted 12/12/22 07/12/23 Salas Massey MD [address] [place] [address] PCP - Devoted 04/13/24 Jignesh Dinh MD [address] [place] [address] Referring Physician Neurology 04/15/23 Eliot Rider DO [facility] [place] [address] Referring Physician Orthopaedic Surgery 07/07/23 Marixa Sampson, ASHWIN Registered Nurse Family Medicine 06/23/24 documented as of this encounter
--- OUTSIDE RECORDS SUMMARY | 2024-09-20 11:07 | XMS_ITS | Clinical Summary ---
Author Organization [facility] Address [address] [place] [address] Care Team Providers Care Composition Professor Name Role Phone Unavailable Primary Care Provider Unavailabl e Social History Tobacco Use Types Packs/Day Years Used Date Smoking Tobacco: Never Assessed Comments Unknown Sex and Gender Information Value Date Recorded Sex Assigned at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 Legal Sex Female 2:12 PM EDT Gender Identity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 Sexual Orientation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 Plan of Treatment

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
--- OUTSIDE RECORDS SUMMARY | 2024-09-20 11:07 | XMS_ITS | Encounter Summary ---
Author Organization [facility] Address [address] [facility] [address] Care Team Providers Care Lath Tier Name Role Phone Salas Massey MD Primary Care Provider Jignesh Dinh MD Unavailable [phone] Eliot Rider DO Unavailable [phone] Salas Massey MD Unavailable [phone] Marixa Sampson RN Unavailable Unavailable Encounter Details Date Type Department Care Team (Late st Contact Info) Description 05/20/2024 Orders Only [facility] [address] [place] [address] Unallocated, Noms Provider, [address] [place] [address] Social History Tobacco Use Types Packs/Day Years [...] 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, 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, [place]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 documented as of this encounter Plan of Treatment Upcoming Encounters Date Type Department Care Team (Late st Contact Info) Description 09/21/2024 2:30 PM EDT Office Visit [facility] [address] [place] [address] 10/24/2024 2:30 PM EDT Clinical Support [facility] [address] [place] [address] Dov Gonzalez RN documented as of this encounter Procedures Procedure Name Priority Date/Time Associated Diagnosis Comments CT CERVICAL SPINE WO IV CONTRAST Routine 05/14/2024 10:[address] SCAN : BRAIN W/O CONTRAST Routine 05/14/2024 10:47 AM EST URINALYSIS, COMPLETE Routine 05/14/2024 10:44 AM EST XR SHOULDER 2+ VIEWS RIGHT Routine 05/14/2024 10:28 AM EST CBC WITH AUTO DIFFERENTIAL Routine 05/14/2024 10:12 AM EST B-TYPE NATRIURETIC PEPTIDE Routine 05/14/2024 10:12 AM EST COMPREHENSIVE METABOLIC PANEL Routine 05/14/2024 10:12 AM EST documented in this encounter Results * CT cervical spine wo IV contrast (05/14/2024 10:50 AM EST) Anatomical Region Laterality Modality Spine, C-spine Computed Tomogra phy us Noms Provider Unallocated MD OMER CT PROCEDURES F inal Result * CT SCAN : BRAIN W/O CONTRAST (05/14/2024 10:47 AM EST) Anatomical Region Laterality Modality Radiographic Nancy ging us Noms Provider Unallocated MD IMG XR PROCEDURES F inal Result * Urinalysis with microscopic (05/14/2024 10:44 AM EST) Urine Urine specimen obtained by clean catch procedure / Unknown us Noms Provider Unallocated MD LAB URINE ORDERABLE S Final Result * XR shoulder 2+ views right (05/14/2024 10:28 AM EST) Anatomical Region Laterality Modality Upper Extremities, Shoulder Right Radi ographic Imaging us Noms Provider Unallocated MD IMG XR PROCEDURES F inal Result * CBC auto differential (05/14/2024 10:12 AM EST) Blood Venous blood specimen / Unknown us Noms Provider Unallocated MD LAB BLOOD ORDERABLE S Final Result * Comprehensive metabolic panel (05/14/2024 10:12 AM EST) Blood Venous blood specimen / Unknown us Noms Provider Unallocated MD LAB BLOOD ORDERABLE S Final Result * B-type natriuretic peptide (05/14/2024 10:12 AM EST) Blood Venous blood specimen / Unknown us Noms Provider Unallocated MD LAB BLOOD ORDERABLE S Final Result documented in this encounter Visit Diagnoses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documented in this encounter Care Teams Lath Tier Relationship Specialty Start Date End Date Salas Massey MD [address] [place] [address] PCP - General Internal Medicine 10/20/22 Salas Massey MD [address] [place] [address] PCP - [facility] 04/13/24 Jignesh Dinh MD [address] [place] [address] Referring Physician Neurology 04/15/23 Eliot Rider DO [address] [place] [address] [place] [address] Referring Physician Orthopaedic Surgery 07/07/23 Marixa Sampson, RN Registered Nurse Family Medicine 06/23/24 documented as of this encounter
--- OUTSIDE RECORDS SUMMARY | 2024-09-20 11:07 | XMS_ITS | Encounter Summary ---
Author Organization [facility] Address [address] [facility] [place] [address] Care Team Providers Care Sole Filler Name Role Phone Salas Massey MD Primary Care Provider [phone] Salas Massey MD Unavailable [phone] Jignesh Dinh MD Unavailable Eliot Rider DO Unavailable [phone] Salas Massey MD Unavailable [phone] Marixa Sampson RN Unavailable Unavailable Encounter Details Date Type Department Care Team (Late st Contact Info) Description 11/20/2022 Orders Only [facility] [address] [place] [address] A, Unknown Practice [address] [place] [address] Social History Tobacco Use Types Packs/Day [...] 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, 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, [place]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 documented as of this encounter Plan of Treatment Upcoming Encounters Date Type Department Care Team (Late st Contact Info) Description 09/21/2024 2:30 PM EDT Office Visit [facility] [address] [place] [address] 10/24/2024 2:30 PM EDT Clinical Support [facility] [address] [place] [address] Dov Gonzalez RN documented as of this encounter Procedures Procedure Name Priority Date/Time Associated Diagnosis Comments XR CHEST 2 VIEWS Routine 11/18/2022 2:26 PM EDT documented in this encounter Results * XR chest 2 views (11/18/2022 2:26 PM EDT) Anatomical Region Laterality Modality Chest Radiographic Nancy ging us Unknown Practice A IMG XR PROCEDURES Final Resul t documented in this encounter Visit Diagnoses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documented in this encounter Care Teams Sole Filler Relationship Specialty Start Date End Date Salas Massey MD [address] [place] [address] PCP - General Internal Medicine 10/20/22 Salas Massey MD [address] [place] [address] PCP - [facility] 12/12/22 07/12/23 Salas Massey MD [address] [place] [address] PCP - [facility] 04/13/24 Jignesh Dinh MD [address] [place] [address] Referring Physician Neurology 04/15/23 Eliot Rider DO [address] [place] [address] Referring Physician Orthopaedic Surgery 07/07/23 Marixa Sampson, RN Registered Nurse Family Medicine 06/23/24 documented as of this encounter
--- OUTSIDE RECORDS SUMMARY | 2024-09-20 11:07 | XMS_ITS ---
Author Organization [facility] enter Care Team Providers Care Grocery Store Clerk Name Role Phone María Topete Unavailable Unavailable Marcell Chavarria Unavailable Unavailable Allergies and adverse reactions Code CodeSystem Substance Reaction Severity StartDate Concern Status 936380827 SNOMED CT Sulfa Antibiotics Unknown Unknown ac tive Care Team Name Role Address Phone Organization Dates Marcell Chavarria [facility] [address] [place], [address], [place] (Office[place] : [facility] 03/05/2022 - 03/17/2022 María Topete [address] [place], [address], [place]Office[place] : [facility] 03/05/2022 - 03/17/2022 Immunizations Immunization Status Vaccine Details Vaccine Code CodeSystem Date Notes Influenza completed Influenza, high-dose, split virus, quadrivalent, injectable, preservative free 197 CVX created date: 07/07/2014 administere d date: 06/10/2019 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 TB 2 Step Mantoux Skin Test completed tuberculin skin test; unspecified formulation lotNumber: [id number] expiry: 10/10/2016 Mfg: Aplisol Given 0.1 ml Right Forearm intradermally Step 2 of Multi-step with next step required 98 CVX created date: 11/10/2015 consent date: 11/10/2015 administere d date: 11/09/2015 TB 2 Step Mantoux Skin Test completed tuberculin skin test; unspecified formulation lotNumber: [id number] expiry: 10/10/2016 Mfg: Aplisol Given 0.1 ml Left Forearm intradermally Step 1 of Multi-step with next step required 98 CVX created date: 11/02/2015 consent date: 11/02/2015 administere d date: 11/02/2015 TB 2 Step Mantoux Skin Test completed tuberculin skin test; unspecified formulation Given Right Forearm Step 2 of Multi-step with next step required 98 CVX created date: 07/06/2014 consent date: 07/06/2014 administere d date: 07/06/2014 TB 2 Step Mantoux Skin Test completed tuberculin skin test; unspecified formulation Given Left Forearm intradermally Step 1 of Multi-step with next step required 98 CVX created date: 06/30/2014 consent date: 06/29/2014 administere d date: 06/29/2014 Mental Status Section Date Assessment Total Score Description 03/17/2022 BIMS 15 cognitively int act CAM 0 No delirium ind icated PHQ-9 01 minimal depress ion 03/12/2022 BIMS 15 cognitively int act CAM 0 No delirium ind icated PHQ-9 01 minimal depress ion Problems Problem # Description Date of onset Resolved Date Code CodeSystem Concern Status 1 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 DEBILITY 03/05/[address] active 2 ESSENTIAL (PRIMARY) HYPERTENSION 03/05/[address] active 3 LYMPHEDEMA, NOT ELSEWHERE CLASSIFIED 03/05/[address] active 4 MUSCLE WEAKNESS (GENERALIZED) 03/05/[address] active 5 OTHER ABNORMALITIES OF GAIT AND MOBILITY 03/05/[address] active 6 OTHER MALAISE 03/04/[address] act kirk 7 OTHER SPECIFIED HEALTH STATUS 03/04/[address] active 8 REPEATED FALLS 03/04/[address] ac tive 9 COGNITIVE COMMUNICATION DEFICIT 06/15/2019 03/04/[address] completed 10 DEHYDRATION 06/10/2019 03/04/[address] com pleted 11 OTHER ABNORMALITIES OF GAIT AND MOBILITY 06/10/2019 03/04/[address] completed 12 UNSTEADINESS ON FEET 06/10/2019 03/04/[address] completed 13 ACIDOSIS 06/09/2019 03/04/[address] comple jo 14 HISTORY OF FALLING 06/09/[address] active 15 MUSCLE WEAKNESS (GENERALIZED) 06/09/2019 03/04/[address] completed 16 TYPE 2 DIABETES MELLITUS WITHOUT COMPLICATIONS 06/09/[address] active 17 CONSTIPATION, UNSPECIFIED 11/01/[address] active 18 OTHER SLEEP DISORDERS 11/01/[address] active 19 ENCOUNTER FOR SCREENING FOR RESPIRATORY TUBERCULOSIS 10/31/2015 06/09/[address] completed 20 DIFFICULTY IN WALKING, NOT ELSEWHERE CLASSIFIED 10/30/2015 06/09/[address] completed 21 ENCOUNTER FOR OTHER ORTHOPEDIC AFTERCARE 10/30/2015 06/09/[address] completed 22 IMPAIRED GLUCOSE TOLERANCE (ORAL) 10/30/2015 03/05/[address] completed 23 MECHANICAL LOOSENING OF INTERNAL LEFT KNEE PROSTHETIC JOINT, SUBSEQUENT ENCOUNTER 10/30/2015 06/09/[address] completed 24 MORBID (SEVERE) OBESITY DUE TO EXCESS CALORIES 10/30/[address] active 25 MUSCLE WEAKNESS (GENERALIZED) 10/30/2015 06/09/[address] completed 26 LOCALIZED EDEMA 07/18/[address] a ctive 27 ANXIETY DISORDER, UNSPECIFIED 06/29/[address] active 28 GASTRO-ESOPHAGEAL REFLUX DISEASE WITHOUT ESOPHAGITIS 06/29/[address] active 29 HYPERLIPIDEMIA, UNSPECIFIED 06/29/[address] active 30 HYPOTHYROIDISM, UNSPECIFIED 06/29/[address] active 31 OSTEOARTHRITIS OF KNEE, UNSPECIFIED 06/27/[address] active Reason for Referral No Reasons for Referral Entered Social History Social History Observation Description Start Date End Date Code Code System Current Smoking Status Tobacco smoking consumption unknown 602710483 SNOMED CT Sex Assigned At Female 1950 61691-3 [facility] Gender Identity Vital Signs Code Code System Vitals Name Values and Units Timing Information 67749-1 [facility] Pain Level Value=1.0 03/17/2022 9279-1 [facility] Respiratory Rate Value=20.0 Units=/m in 03/16/2022 8462-4 [facility] Blood Pressure-Diastolic Value=76 Un its=mmHg 03/16/2022 8480-6 [facility] Blood Pressure-Systolic Xgebd=976 Un its=mmHg 03/16/2022 8310-5 [facility] Body Temperature Value=96.8 Units= F 03/16/2022 8867-4 [facility] Heart rate Kawsi=380.0 Units=/min 03/16/2022 07753-2 [facility] O2 % BldC Oximetry Value=97.0 Units= % 03/16/2022 76948-8 [facility] Weight Rzesz=488.6 Units=Lbs 07/2021 2339-0 [facility] Blood Sugar Dxdku=717.0 Units=mg/dL 06/21/2019 8302-2 [facility] Height Value=61.0 Units=Inches 07/07/2014
--- OUTSIDE RECORDS SUMMARY | 2024-09-20 11:07 | XMS_ITS ---
Author Organization [facility] Address [address] [place] [address] Care Team Providers Care Nuclear Fuels Research Engineer Name Role Phone Salas Massey MD Primary Care Provider Jignesh Dinh MD Unavailable Eliot Rider DO Unavailable [phone] Salas Massey MD Unavailable [phone] Marixa Sampson RN Unavailable Unavailable Diabetes Self-Management Education Status:Enrolled (Active) Start date:08/15/2024 Enrollment date:08/15/2024 Current support & services provided:Type 2 Diabetes Management Related social drivers of health:Financial Resource Strain, Stress, Physical Activity Overview The Diabetes Self-Management Education program is designed to help patients manage their diabetes or prediabetes. Case Team Name Relationship Phone Dov Gonzalez RN(Responsible Staff) Registered Nurse Continued Care and Services Coordination
[2024-09-20 11:32] LABS: Hemoglobin 12.3 g/dL (12.0-16.0)
[2024-09-20 11:52] LABS: ABG PCO2 45.6 mmHg (35.0-45.0); PO2 ABG 76.9 mmHg (80.0-100.0); pH ABG 7.422 (7.350-7.450)
[2024-09-20 11:53] LABS: Allen Test POSITIVE (POSITIVE); Base Excess ABG 5.3 mmol/L (-2.0-2.0); HCO3 ABG 29.7 mmol/L (22.0-26.0); Oxygen Saturation ABG 96.5 %
[2024-09-20 11:57] LABS: O2 Mode RA; Puncture Site RIGHT RADIAL
--- NOTE | 2024-09-20 12:31 | RT_ITS ---
[facility] Test Date: 2024-09-20 Pat Name: CELESTINO ALVAREZ Department: Room: - Gender: Female K 9 Police Officer: Sabino Jones RRT : 1950 Requested By: [id number] Order Number: [id number] Reading MD: Maninder Jim Interpretive Statements Pulmonary function testing was completed according to ATS criteria. Findings were considered accurate and reproducible, with exception of DLCO which did not meet ATS standards. No bronchodilator was administered due to normal spirometric values. Spirometry: -FEV1/FVC: Normal @ 84% -FEV1: Normal @ 90% -FVC: Low normal @ 80% Lung volumes by plethysmography: -RV: Normal @ 99% -TLC: Normal @ 92% Diffusion capacity: -DLCO: Mild-moderate reduction @ 69% when corrected for Hb 12.3g/dL Flow-volume loop: -Normal shape Impressions: -Technically normal spirometry that trends towards mild restriction, but lung volumes are normal. There is an isolated mild-moderate diffusion impairment. This pattern can be seen in, but not restricted to, cardiopulmonary vascular disorders, early interstitial lung disease, and early emphysema. Clinical correlation required. Electronically Signed On 09-20-2024 16:43:04 EDT by Maninder Jim
== END 2024-09-20 10:56 | disposition home or self-care (01) ==
LOC: CARD 11:02
PROVIDERS: PCP Internal Medicine
DX: R06.09 Other forms of dyspnea (principal); J44.9 Chronic obstructive pulmonary disease, unspecified
CPT/HCPCS: 36415; 36600; 82805; 85018; 94010; 94726; 94729